=== PATIENT | female | born 1995 | race Hispanic/Latino ===

== ENCOUNTER 2020-06-16 08:27 | Emergency (ER) | payer OTHER ==
--- OUTSIDE RECORDS SUMMARY | 2020-06-16 08:30 | XMS REPORT | Continuity of Care Document ---
:1995 Author Organization [facility] t Address [address] [place] [address] Care Team Providers Name Role Phone Gracia Mosquera MD Attending Clinician Payers Payer Name Policy Type Policy Number Effective Date Expiration Date S ource Problems This patient has no known problems. Allergies, Adverse Reactions, Alerts Allergy Allergy Status Severity Reaction(s) Onset Inactive Treating Comm ents Source Name Type Date Date Clinician No Known DA Active U 2019-0 [facility] [place] No Known DA Active U 2017-0 [facility] [place] Medications This patient has no known medications. Procedures This patient has no known procedures. Encounters Start End Encounter Admission Attending Care Care Encounter Source Date/Time Date/Time Type Type Clinicians Facility Department ID 2020-06-04 2020-06-04 [id number] 00:00:00 00:00:00 Gloria Whitaker [id number] [place] [id number] Professio [phone] [address] 2020-05-12 2020-05-12 [facility] [id number] 00:00:00 00:00:00 Gloria Whitaker [id number] [place] [id number] Professio [phone] [address] 2020-04-24 2020-04-24 [facility] [id number] 08:10:06 08:30:06 ne Visit Gloria Whitaker [id number] [place] [id number] Professio [phone] [address] Results Test Description Test Time Test Comments Results Result Comments Source AG HEPATITIS B SURFACE 2019-06-06 08:48:00 Test Item Value Reference Range Interpretation Comme nts AG HEPATITIS B SURFACE (test code = HBSAG) NONREACTIVE NONREACTIVE IS CONSENT FORM SIGNED FOR HIV TESTING? YAB HEPATITIS C [id number] 08:48:00 Test Item Value Reference Range Interpretation Comments AB HEPATITIS C (test code = NONREACTIVE NONREACTIVE HCVAB) SIGNAL TO CUTOFF (test code = <0.02 <0.80 N CUTOFF) IS CONSENT FORM SIGNED FOR HIV TESTING? YAB [id number] 08:48:00 Test Item Value Reference Range Interpretation Comments AB TREPONEMA (test code = TREPAB) NONREACTIVE NONREACTIVE IS CONSENT FORM SIGNED FOR HIV TESTING? YAB HIV 1 08:48:00 Test Item Value Reference Range Interpretation Comments AB HIV 1 2 (test NONREACTIVE NONREACTIVE [facility] code = [id number]) 4th Gen HIV Ag/Ab Combo Screen IS CONSENT FORM SIGNED FOR HIV TESTING? YAG HEPATITIS B [id number] 08:17:00 Test Item Value Reference Range Interpretation Comments AG HEPATITIS B SURFACE (test code NONREACTIVE NONREACTIVE = HBSAG) IS CONSENT FORM SIGNED FOR HIV TESTING? YAB HEPATITIS C [id number] 08:17:00 Test Item Value Reference Range Interpretation Comments AB HEPATITIS C (test code = HCVAB) NONREACTIVE SIGNAL TO CUTOFF (test code = CUTOFF) <0.80 IS CONSENT FORM SIGNED FOR HIV TESTING? CECILB [id number] 08:17:00 Test Item Value Reference Range Interpretation Comments AB TREPONEMA (test code = TREPAB) NONREACTIVE NONREACTIVE IS CONSENT FORM SIGNED FOR HIV TESTING? CECILB HIV 1 08:17:00 Test Item Value Reference Range Interpretation Comments AB HIV 1 2 (test code = [id number]) NONREACTIVE IS CONSENT FORM SIGNED FOR HIV TESTING? YCBC W/AUTO [id number] 07:27:00 Test Item Value Reference Range Interpretation Comments WHITE BLOOD CELL (test code = WBC) 15.0 K/mm3 6.6-12.1 H RED BLOOD CELL (test code = RBC) 4.16 M/mm3 3.45-5.01 N HEMOGLOBIN (test code = HGB) 12.0 g/dL 10.7-13.9 N HEMATOCRIT (test code = HCT) 35.5 % 32.1-42.1 N MEAN CELL VOLUME (test code = MCV) 85 fL 84.1-94.8 N MEAN CELL HGB (test code = MCH) 28.8 pg 27-35 N MEAN CELL HGB CONCETRATION (test 33.8 gm/dL 32.2-34.1 N code = MCHC) RED CELL DISTRIBUTION WIDTH (test 13.5 % 12.4-16.5 N code = RDW) PLATELET COUNT (test code = PLT) 259 K/mm3 133-385 N MEAN PLATELET VOLUME (test code = 10.5 fl 9.1-12.7 N MPV) NEUTROPHIL % (test code = NT%) 77.0 % 56.5-79.4 N LYMPHOCYTE % (test code = LY%) 17.8 % 14.3-34.3 N MONOCYTE % (test code = MO%) 4.1 % 5.1-10.4 L EOSINOPHIL % (test code = EO%) 0.1 % 0.1-3.0 N BASOPHIL % (test code = BA%) 0.3 % 0.1-1.0 N NEUTROPHIL # (test code = NT#) 11.6 K/mm3 LYMPHOCYTE # (test code = LY#) 2.7 K/mm3 MONOCYTE # (test code = MO#) 0.6 K/mm3 EOSINOPHIL # (test code = EO#) 0.02 K/mm3 BASOPHIL # (test code = BA#) 0.0 K/mm3 RBC MORPHOLOGY REQUIRED (test code NORMAL NORMAL = RBCM) PLATELET MORPHOLOGY REQUIRED (test NORMAL NORMAL code = PLTMR) - US FET BIO PH OK W/O [id number] 13:30:00 Patient Name: CAMRELINA BRASHER Unit No: [id number] EXAMS: CPT CODE: [id number] US FET BIO PH OK W/O NST 25359 [facility] [address] [place], [place] [address] BIOPHYSICAL PROFILE ULTRASOUND REPORT Pat. Name: CARMELINA BRASHER Pat. No: [id number] Study Date: 06/05/2019 12:33pm , Age: 06 1995, 23 LMP: Unknown GA Selected: 38w6d (From Known E) JOSE: 06/13/2019 Referring MD: TITA SAMUEL Grip Assembler: Kathleen Maravilla RDMS CPT4: [id number] Admitting MD: TITA SAMUEL Hist/Ind: 1ST SCAN LOF CTX PRESSURE Heart Rate: 147 bpm Amniotic Fluid Index: 17.5cm (07.2-22.8) Q1: 2.7cm Q2: 4.8cm Q3: 3.0cm Q4: 6.9cm Biophysical Profile: 11/16 Breathin Tone: 2 Movement:2 AFV: 2 CLINICAL SUMMARY Type of Gestation: [place] Intrauterine in vertex presentation. motion and organs seen: heart motion seen body and limb movements observed tone noted breathing movements observed Placental location: Posterior Elena cental maturity : Grade 2 There is no evidence of placenta previa. Amniotic fluid volume is normal. Uterus and adnexa: No significant abnormality is seen. Thank you for allowing us toparticipate in the care of this patient. Nishant Perez M.D. Electronic Si gnature 06/05/2019 01:30pm at 1330 Reported and signed by: Nishant Perez MD [facility] NAME: CARMELINA BRASHER Radiology Department PHYS: Tita Vargas MD [address] : 1995 AGE: 23 SEX: F [place] [address] LOC: CristinaBRIONNA PHONE #: [phone] EXAM DATE: 06/05/2019 STATUS: REG ER FAX #: [phone] RAD NO: Page 1 Signed Report (CONTINUED) Patient Name: CARMELINA BRASHER Unit No: [id number] EXAMS: CPT CODE : [id number] FET BIO PH OK W/O NST 68002 <Continued> CC: Tita Samuel MD Technologist: Kathleen Maravilla RDMS Probe: Trnscrbd D/ (1330) Maisha Jean D/T: S: 06/05/2019 (1330) [facility] NAME: CARMELINA BRASHER Radiology Department PHYS: Tita Vargas MD [address] : 1995 AGE: 23 SEX: F [place] [address] LOC: CristinaBRIONNA PHONE #: [phone] EXAM DATE: 06/05/2019 STATUS: REG ER FAX #: [phone] RAD NO: Page 2 Signed Report Patient Name: CARMELINA BRASHER Unit No: [id number] EXAMS: CPT CODE: [id number] US FET BIO PH OK W/O NST 08045 <Continued> [facility] NAME: CARMELINA BRASHER Radiology Department PHYS: Tita Vargas MD [address] : 1995 AGE: 23 SEX: F [place], [place] [address] LOC: CristinaBRIONNA PHONE #: [phone] EXAM DATE: 06/05/2019 STATUS: REG ER FAX #: [phone] RAD NO: Page 3 Signed Report
--- NOTE | 2020-06-16 11:58 | ER ---
Nurse's Notes [facility] Name: Christen Clarke Age: 24 yrs Sex: Female : 1995 Arrival Date: 06/16/2020 Time: 08:33 Bed 5 Private MD: Diagnosis: Presentation: 06/16 09:07 Chief complaint: Dizziness and SOB, whose when attempting to eat or drink anything hb since last following her endoscopy. Advised by Dr. Haro to come to ED. Coronavirus screen: At this time, the client does not indicate any symptoms associated with coronavirus-19. Ebola Screen: No symptoms or risks identified at this time. Initial Sepsis Screen: Does the patient meet any 2 criteria? No. Patient's initial sepsis screen is negative. Does the patient have a suspected source of infection? No. Patient's initial sepsis screen is negative. Risk Assessment: Do you want to hurt yourself or someone else? Patient reports no desire to harm self or others. Onset of symptoms was June 13, 2020. 09:07 Method Of Arrival: Ambulatory hb 09:07 Acuity: RODRÍGUEZ 3 hb Historical: - Allergies: 09:09 No Known Allergies; hb - PMHx: 09:09 Anxiety; hb - Immunization history:: Adult Immunizations up to date. - Social history:: Smoking status: Patient denies any tobacco usage or history of. Vital Signs: 09:07 BP 109 / 73; Pulse 63; Resp 98; Temp 98; Pulse Ox 99% on R/A; Pain 0/10; hb ED Course: 08:33 Patient arrived in ED. mr 09:08 Triage completed. hb 09:09 Arm band placed on. hb Administered Medications: No medications were administered Outcome: 11:58 Patient left the ED. ll1 Signatures: Gladis Kumar Heather, RN RN Dion Olguin RN RN ll1
[2020-06-16 12:10] VITALS: BP 109/73; TEMP 98; O2SAT 99
== END 2020-06-16 11:58 | disposition left against medical advice (07) ==
LOC: ER 08:27
DX: Z53.21 Procedure and treatment not carried out due to patient leaving prior to being seen by health care provider (principal)
CPT/HCPCS: 99281

== ENCOUNTER 2022-05-05 16:18 | Emergency (ER) | payer OTHER ==
--- OUTSIDE RECORDS SUMMARY | 2022-05-05 16:23 | XMS REPORT | Continuity of Care Document ---
:1995 Author Organization [facility] t Address [address] [place] [address] Care Team Providers Name Role Phone GLORIA MOSQUERA Primary Care Physician Unavailable Tita Samuel Attending Clinician Unavailable GLORIA MOSQUERA Attending Clinician Unavailable MAI ARMAS Attending Clinician Unavailable MAI ARMAS Attending Clinician Unavailable 2, [facility] Attending Clinician Unavailable PABLO OSMAN Attending Clinician Unavailable Pablo Osman MD Attending Clinician Jacqui Brar Attending Clinician Unknown, Attending Attending Clinician Unavailable JACQUI AVILA Attending Clinician Unavailable Gloria Mosquera MD Attending Clinician [phone] Jamshid Godoy MD Attending Clinician JAMSHID GODOY Attending Clinician Unavailable Doctor Unassigned, [place] Attending Clinician Unavailable Brianna Leos MD Attending Clinician BRIANNA LEOS Attending Clinician Unavailable Ezio Feng MD Attending Clinician Pob, [facility] Lab Main Attending Clinician Unavailable MOSES MIRELES Attending Clinician Unavailable MOSES MIRELES Attending Clinician Unavailable 1, [facility] Sleep Lab Bed Attending Clinician Unavailable Moses Mireles MD Attending Clinician Only, Adc Test Attending Clinician Unavailable Triston Hurtado MD Attending Clinician Only, Ang Db Test Attending Clinician Unavailable UNKNOWN, ATTENDING Attending Clinician Unavailable EZIO FENG Attending Clinician Unavailable EZIO FENG Attending Clinician Unavailable BETHANY ROWAN Attending Clinician Unavailable FREDDIE GRANT Attending Clinician Unavailable BROOKLYNN EDEN Attending Clinician Unavailable MARIELLA KIDD Attending Clinician Unavailable Tita Samuel Admitting Clinician Unavailable PABLO OSMAN Admitting Clinician Unavailable BRIANNA LEOS Admitting Clinician Unavailable BETHANY ROWAN Admitting Clinician Unavailable BROOKLYNN EDEN Admitting Clinician Unavailable Payers Payer Name Policy Type Policy Number Effective Date Expiration Date [facility] [id number] 2016 [facility] STAR 00:00:00 [facility] [id number] 2014 00:00:00 Problems Condition Condition Condition Status Onset Resolution Last Treating Co mments Source Name Details Category Date Date Treatment Clinician Date COVID-19 COVID-19 Disease Active Unive rs 7- ity of 00:00: [place] [facility] Confusion Confusion Disease Active 2020-04 Uni vers state state 05-12 ity of 00:: [place] [facility] Dysphagia, Dysphagia, Disease Active 2020-04 U nivers unspecifie unspecifie 05-12 it y of d type d type 00:: [place] [facility] 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 05-12 it y of 00:00: [place] [facility] Pressure Pressure Disease Active Unive rs in head in head 916 ity of 00:00: [place] [facility] Altered Altered Disease Active Univers level of level of 9-16 ity of consciousn consciousn 00:[place] [facility] SOB SOB Disease Active Univers (shortness (shortness 5-28 it y of of breath) of breath) 00:00: [place] 00 [facility] Irregular Irregular Disease Active Uni vers menstrual menstrual 7-05 ity of cycle cycle 00:00: [place] 00 [facility] Anxiety Anxiety Disease Active Univers 7-16 ity of 00:00: [place] [facility] Obesity Obesity Disease Active Overview: Univ ers 11-07 Formattin ity of 00:00: g of this [place] 00 note Medical might be Branch different from the original. 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 Allergies, Adverse Reactions, Alerts Allergy Allergy Status Severity Reaction(s) Onset Inactive Treating Comm ents Source Name Type Date Date Clinician Epinephr Propensi Active Anxiety Unive rs ine ty to 6 ity of adverse 00:00: [place] reaction 00 Medical s Branch EPINEPHR DRUG Active Anxiety Univers INE INGREDI 6 ity of 00:00: [place] 00 Medical Branch No Known DA Active U 0 [facility] [place] No Known DA Active U 2019-0 [facility]ie [facility]- [facility] [place] No Known DA Active U 2017-0 [facility] Allergie 3 [facility] 00:[facility] [place] No Known DA Active U 2017-0 [facility] Allergie [facility]- [facility] [place] Social History Social Habit Start Date Stop Date Quantity Comments Source Alcohol intake 2022-03-09 2022-03-09 Current drinker Unive rsity of 00:00:00 00:00:00 of alcohol [place] [facility] (finding) [facility] Exposure to 2022-02-14 2022-02-24 Not sure University of SARS-CoV-2 00:00:00 16:07:00 [place] [facility] (event) [facility] Tobacco use and 2012-11-07 2012-11-07 Smokeless tobacco Un iversity of exposure 00:00:00 00:00:00 non-user [facility] Sex Assigned At [birth year] Universit y of 00:00:00 00:00:00 [facility] Smoking Status Start Date Stop Date Source Never smoked tobacco [facility] Medications Ordered Filled Start Stop Current Ordering Indication Dosage Frequency Signature Comments Components Source Medication Medication Date Date Medication? Clinician (SIG) Name Name Etonogestre 2021-04 No 68mg 68 mg by U nivers l 2-15 12-15 Subdermal ity of (NEXPLANON) 12:07: 00:00 route once [place] 68 mg 40 :00 now. Medical implant Branch Etonogestre 2021-04- No 68mg 68 mg by U nivers l 2-15 12-15 Subdermal ity of (NEXPLANON) 12:07: 00:00 route once [place] 68 mg 40 :00 now. Medical implant Branch cyanocobala 2021-04- Yes [id number] 2000ug Univers min (DODEX) 05-09 ity of injection 17:00: 04:59 [place] 2,000 mcg 00 :00 Medical Branch cyanocobala 2021-04- No [id number] 2000ug Univers min (DODEX) 05-09 ity of injection 17:00: 16:44 [place] 2,000 mcg 00 :00 Medical Branch cyanocobala 2021-04- No [id number] 2000ug 2,000 mcg, Univers min (DODEX) 05-09 Intramuscu i ty of injection 17:00: 16:44 lar, ONCE, [place] 2,000 mcg 00 :00 1 dose, On [facility] 03/09/22 at 1100, Routine cyanocobala 2021-04- No [id number] 2000ug Univers min (DODEX) 05-09 ity of injection 17:00: 16:44 [place] 2,000 mcg 00 :00 Medical Branch cyanocobala 2021-04- No [id number] 2000ug Univers min (DODEX) 05-09 ity of injection 17:00: 16:44 [place] 2,000 mcg 00 :00 Medical Branch cyanocobala 2021-04- No [id number] 2000ug 2,000 mcg, Univers min (DODEX) 05-09 Intramuscu i ty of injection 17:00: 16:44 lar, ONCE, [place] 2,000 mcg 00 :00 1 dose, On Medi lakhwinder Tu Branch 03/09/22 at 1100, Routine acetaminoph 2021-04- No 1000mg 1,000 mg, Univers en 1-15 15 Oral, ity of (TYLENOL) 18:45: 18:34 ONCE, 1 [place] tablet 00 :[place] dose, On Medical 1,000 mg [facility] 02/23/22 at 1245, FILI ibuprofen 2021-04 Yes [id number] 600mg Take 1 Univers 600 mg 1-15 tablet by ity of tablet 00:00: mouth [place] 00 every 6 Medical (six) Branch hours as needed for Pain (scale 4-6) or Alternate with [place] for pain scale 1-3. ondansetron 2021-04 Yes [id number] 4mg Take 1 Univers 4 mg 1-15 tablet by ity of disintegrat 00:00: mouth [place] ing tablet 00 every 12 Medic al (twelve) Branch hours as needed for Nausea and Vomiting (N/V). ibuprofen 2021-04 Yes [id number] 600mg Take 1 Univers 600 mg 1-15 tablet by ity of tablet 00:00: mouth [place] 00 every 6 Medical (six) Branch hours as needed for Pain (scale 4-6) or Alternate with [place] for pain scale 1-3. ondansetron 2021-04 Yes [id number] 4mg Take 1 Univers 4 mg 1-15 tablet by ity of disintegrat 00:00: mouth [place] ing tablet 00 every 12 Medic al (twelve) Branch hours as needed for Nausea and Vomiting (N/V). ibuprofen 2021-04 Yes [id number] 600mg Take 1 Univers 600 mg 1-15 tablet by ity of tablet 00:00: mouth [place] 00 every 6 Medical (six) Branch hours as needed for Pain (scale 4-6) or Alternate with [place] for pain scale 1-3. ondansetron 2021-04 Yes [id number] 4mg Take 1 Univers 4 mg 1-15 tablet by ity of disintegrat 00:00: mouth [place] ing tablet 00 every 12 Medic al (twelve) Branch hours as needed for Nausea and Vomiting (N/V). ibuprofen 2021-04 Yes [id number] 600mg Take 1 Univers 600 mg 1-15 tablet by ity of tablet 00:00: mouth [place] 00 every 6 Medical (six) Branch hours as needed for Pain (scale 4-6) or Alternate with [place] for pain scale 1-3. ondansetron 2021-04 Yes [id number] 4mg Take 1 Univers 4 mg 1-15 tablet by ity of disintegrat 00:00: mouth [place] ing tablet 00 every 12 Medic al (twelve) Branch hours as needed for Nausea and Vomiting (N/V). ibuprofen 2021-04 Yes [id number] 600mg Take 1 Univers 600 mg 1-15 tablet by ity of tablet 00:00: mouth [place] 00 every 6 Medical (six) Branch hours as needed for Pain (scale 4-6) or Alternate with [place] for pain scale 1-3. ondansetron 2021-04 Yes [id number] 4mg Take 1 Univers 4 mg 1-15 tablet by ity of disintegrat 00:00: mouth [place] ing tablet 00 every 12 Medic al (twelve) Branch hours as needed for Nausea and Vomiting (N/V). ibuprofen 2021-04 Yes [id number] 600mg Take 1 Univers 600 mg 1-15 tablet by ity of tablet 00:00: mouth [place] 00 every 6 Medical (six) Branch hours as needed for Pain (scale 4-6) or Alternate with [place] for pain scale 1-3. ondansetron 2021-04 Yes [id number] 4mg Take 1 Univers 4 mg 1-15 tablet by ity of disintegrat 00:00: mouth [place] ing tablet 00 every 12 Medic al (twelve) Branch hours as needed for Nausea and Vomiting (N/V). ibuprofen 2021-04 Yes [id number] 600mg Take 1 Univers 600 mg 1-15 tablet by ity of tablet 00:00: mouth [place] 00 every 6 Medical (six) Branch hours as needed for Pain (scale 4-6) or Alternate with [place] for pain scale 1-3. ondansetron 2021-04 Yes [id number] 4mg Take 1 Univers 4 mg 1-15 tablet by ity of disintegrat 00:00: mouth [place] ing tablet 00 every 12 Medic al (twelve) Branch hours as needed for Nausea and Vomiting (N/V). ibuprofen 2021-04 Yes [id number] 600mg Take 1 Univers 600 mg 1-15 tablet by ity of tablet 00:00: mouth [place] 00 every 6 Medical (six) Branch hours as needed for Pain (scale 4-6) or Alternate with [place] for pain scale 1-3. ondansetron 2021-04 Yes [id number] 4mg Take 1 Univers 4 mg 1-15 tablet by ity of disintegrat 00:00: mouth [place] ing tablet 00 every 12 Medic al (twelve) Branch hours as needed for Nausea and Vomiting (N/V). ibuprofen 2021-04 Yes [id number] 600mg Take 1 Univers 600 mg 1-15 tablet by ity of tablet 00:00: mouth [place] 00 every 6 Medical (six) Branch hours as needed for Pain (scale 4-6) or Alternate with [place] for pain scale 1-3. ondansetron 2021-04 Yes [id number] 4mg Take 1 Univers 4 mg 1-15 tablet by ity of disintegrat 00:00: mouth [place] ing tablet 00 every 12 Medic al (twelve) Branch hours as needed for Nausea and Vomiting (N/V). ibuprofen 2021-04 Yes [id number] 600mg Take 1 Univers 600 mg 1-15 tablet by ity of tablet 00:00: mouth [place] 00 every 6 Medical (six) Branch hours as needed for Pain (scale 4-6) or Alternate with [place] for pain scale 1-3. ondansetron 2021-04 Yes [id number] 4mg Take 1 Univers 4 mg 1-15 tablet by ity of disintegrat 00:00: mouth [place] ing tablet 00 every 12 Medic al (twelve) Branch hours as needed for Nausea and Vomiting (N/V). HYDROcodone 2021-04- Yes [id number] 1{tbl} Take 1 U nivers -acetaminop 1-15 11-23 tablet by it y of hen 5-325 00:00: 05:59 mouth [place] mg tablet 00 :00 every 6 Medical (six) Branch hours as needed for Pain (scale 7-10) for up to 7 days. Indication s: acute pain HYDROcodone 2021-04- Yes [id number] 1{tbl} Take 1 U nivers -acetaminop 1-15 11-23 tablet by it y of hen 5-325 00:00: 05:59 mouth [place] mg tablet 00 :00 every 6 Medical (six) Branch hours as needed for Pain (scale 7-10) for up to 7 days. Indication s: acute pain HYDROcodone 2021-04- Yes [id number] 1{tbl} Take 1 U nivers -acetaminop -15 03-03 tablet by it y of hen 5-325 00:00: 05:59 mouth [place] mg tablet 00 :00 every 6 Medical (six) Branch hours as needed for Pain (scale 7-10) for up to 7 days. Indication s: acute pain bromphenira 2021-04- Yes [id number] 10mL Take 10 mL Univers mine-pseudo 04-18 by mouth 4 i ty of ephedrine-D 00:00: 05:59 (four) [place] as M (BROMFED 00 :00 times Medical DM) 2-30-10 daily as Bran ch mg/5 mL needed for syrup Congestion /Allergies or Cough for up to 12 days. bromphenira 2021-04- Yes [id number] 10mL Take 10 mL Univers mine-pseudo 04-18 by mouth 4 i ty of ephedrine-D 00:00: 05:59 (four) [place] as M (BROMFED 00 :00 times Medical DM) 2-30-10 daily as Bran ch mg/5 mL needed for syrup Congestion /Allergies or Cough for up to 12 days. bromphenira 2021-04- Yes [id number] 10mL Take 10 mL Univers mine-pseudo 04-18 by mouth 4 i ty of ephedrine-D 00:00: 05:59 (four) [place] as M (BROMFED 00 :00 times Medical DM) 2-30-10 daily as Bran ch mg/5 mL needed for syrup Congestion /Allergies or Cough for up to 12 days. bromphenira 2021-04- Yes [id number] 10mL Take 10 mL Univers mine-pseudo 04-18 by mouth 4 i ty of ephedrine-D 00:00: 05:59 (four) [place] as M (BROMFED 00 :00 times Medical DM) 2-30-10 daily as Bran ch mg/5 mL needed for syrup Congestion /Allergies or Cough for up to 12 days. azithromyci 2021-04- Yes [id number] 250mg Z-Amado = Univers n 04-18 11-14 500 mg day ity of (ZITHROMAX 00:00: 05:59 1, then [place] as Z-AMADO) 250 00 :00 250 mg Medical mg tablet days 2 to Branc h 5. lidocaine 2021-0 Yes [id number] 15mL Take 15 mL Univers 2% viscous 7-01 by mouth ity o f 2 % 00:00: every 4 [place] solution 00 (four) Medical hours as Branch needed for Oral mucosal pain. lidocaine 2021-0 Yes [id number] 15mL Take 15 mL Univers 2% viscous 7-01 by mouth ity o f 2 % 00:00: every 4 [place] solution 00 (four) Medical hours as Branch needed for Oral mucosal pain. lidocaine 2021-0 Yes [id number] 15mL Take 15 mL Univers 2% viscous 7-01 by mouth ity o f 2 % 00:00: every 4 [place] solution 00 (four) Medical hours as Branch needed for Oral mucosal pain. lidocaine 2021-0 Yes [id number] 15mL Take 15 mL Univers 2% viscous 7-01 by mouth ity o f 2 % 00:00: every 4 [place] solution 00 (four) Medical hours as Branch needed for Oral mucosal pain. lidocaine 2021-0 Yes [id number] 15mL Take 15 mL Univers 2% viscous 7-01 by mouth ity o f 2 % 00:00: every 4 [place] solution 00 (four) Medical hours as Branch needed for Oral mucosal pain. lidocaine 2021-0 Yes [id number] 15mL Take 15 mL Univers 2% viscous 7-01 by mouth ity o f 2 % 00:00: every 4 [place] solution 00 (four) Medical hours as Branch needed for Oral mucosal pain. lidocaine 2021-0 Yes [id number] 15mL Take 15 mL Univers 2% viscous 7-01 by mouth ity o f 2 % 00:00: every 4 [place] solution 00 (four) Medical hours as Branch needed for Oral mucosal pain. lidocaine 2021-0 Yes [id number] 15mL Take 15 mL Univers 2% viscous 7-01 by mouth ity o f 2 % 00:00: every 4 [place] solution 00 (four) Medical hours as Branch needed for Oral mucosal pain. lidocaine 2021-0 Yes [id number] 15mL Take 15 mL Univers 2% viscous 7-01 by mouth ity o f 2 % 00:00: every 4 [place] solution 00 (four) Medical hours as Branch needed for Oral mucosal pain. lidocaine 2021-0 Yes [id number] 15mL Take 15 mL Univers 2% viscous 7-01 by mouth ity o f 2 % 00:00: every 4 [place] solution 00 (four) Medical hours as Branch needed for Oral mucosal pain. lidocaine 2021-0 Yes [id number] 15mL Take 15 mL Univers 2% viscous 7-01 by mouth ity o f 2 % 00:00: every 4 [place] solution 00 (four) Medical hours as Branch needed for Oral mucosal pain. lidocaine 2- No [id number] 15mL Take 15 mL Univers 2% viscous 7- 12-15 by mouth ity of 2 % 00:00: 00:00 every 4 [place] solution 00 :00 (four) Medical hours as Branch needed for Oral mucosal pain. lidocaine 2021-2021- No [id number] 15mL Take 15 mL Univers 2% viscous 7- 12-15 by mouth ity of 2 % 00:00: 00:00 every 4 [place] solution 00 :00 (four) Medical hours as Branch needed for Oral mucosal pain. amoxicillin 2021- No [id number] 400mg Take 5 mL Univers -clavulanat 10-09 by mouth 2 i ty of e 400-57 00:00: 04:59 (two) [place] mg/5 mL 00 :00 times Medical suspension daily for Bran ch 10 days. hydrOXYchlo 2021- No [id number] 200mg Take 1 Univers roQUINE 200 10-09 tablet by it y of mg tablet 00:00: 04:59 [place] 00 :00 (two) Medical times Branch daily for 5 days. Etonogestre Yes 68mg 68 mg by Un efren l 6-29 Subdermal ity of (NEXPLANON) 09:20: route once [place] 68 mg 51 now. Medical implant Branch Etonogestre 0 Yes 68mg 68 mg by Un efren l 6-29 Subdermal ity of (NEXPLANON) 09:20: route once [place] 68 mg 51 now. Medical implant Branch Etonogestre 0 Yes 68mg 68 mg by Un efren l 6-29 Subdermal ity of (NEXPLANON) 09:20: route once [place] 68 mg 51 now. Medical implant Branch Etonogestre Yes 68mg 68 mg by Un efren l 6-29 Subdermal ity of (NEXPLANON) 09:20: route once [place] 68 mg 51 now. Medical implant Branch Etonogestre 2-0 Yes 68mg 68 mg by Un efren l 6-29 Subdermal ity of (NEXPLANON) 09:20: route once [place] 68 mg 51 now. Medical implant Branch Etonogestre 2-0 Yes 68mg 68 mg by Un efren l 6-29 Subdermal ity of (NEXPLANON) 09:20: route once [place] 68 mg 51 now. Medical implant Branch Etonogestre 2-0 Yes 68mg 68 mg by Un efren l 6-29 Subdermal ity of (NEXPLANON) 09:20: route once [place] 68 mg 51 now. Medical implant Branch Etonogestre 2-0 Yes 68mg 68 mg by Un efren l 6-29 Subdermal ity of (NEXPLANON) 09:20: route once [place] 68 mg 51 now. Medical implant Branch Etonogestre 2-0 Yes 68mg 68 mg by Un efren l 6-29 Subdermal ity of (NEXPLANON) 09:20: route once [place] 68 mg 51 now. Medical implant Branch Etonogestre 2-0 Yes 68mg 68 mg by Un efren l 6-29 Subdermal ity of (NEXPLANON) 09:20: route once [place] 68 mg 51 now. Medical implant Branch Etonogestre 2-0 Yes 68mg 68 mg by Un efren l 6-29 Subdermal ity of (NEXPLANON) 09:20: route once [place] 68 mg 51 now. Medical implant Branch bromphenira 2021-0 Yes [id number] 5mL Take 5 mL Univers mine-pseudo 6-29 by mouth 3 it y of ephedrine-D 00:00: (three) [place] as M (BROMFED 00 times Medical DM) 2-30-10 daily as Bran ch mg/5 mL needed for syrup Congestion /Allergies or Cough. bromphenira 2-0 Yes [id number] 5mL Take 5 mL Univers mine-pseudo 6-29 by mouth 3 it y of ephedrine-D 00:00: (three) [place] as M (BROMFED 00 times Medical DM) 2-30-10 daily as Bran ch mg/5 mL needed for syrup Congestion /Allergies or Cough. bromphenira 2-0 Yes [id number] 5mL Take 5 mL Univers mine-pseudo 6-29 by mouth 3 it y of ephedrine-D 00:00: (three) [place] as M (BROMFED 00 times Medical DM) 2-30-10 daily as Bran ch mg/5 mL needed for syrup Congestion /Allergies or Cough. bromphenira 2022-0 Yes [id number] 5mL Take 5 mL Univers mine-pseudo 6-29 by mouth 3 it y of ephedrine-D 00:00: (three) [place] as M (BROMFED 00 times Medical DM) 2-30-10 daily as Bran ch mg/5 mL needed for syrup Congestion /Allergies or Cough. bromphenira 2-0 Yes [id number] 5mL Take 5 mL Univers mine-pseudo 6-29 by mouth 3 it y of ephedrine-D 00:00: (three) [place] as M (BROMFED 00 times Medical DM) 2-30-10 daily as Bran ch mg/5 mL needed for syrup Congestion /Allergies or Cough. bromphenira 2-0 Yes [id number] 5mL Take 5 mL Univers mine-pseudo 6-29 by mouth 3 it y of ephedrine-D 00:00: (three) [place] as M (BROMFED 00 times Medical DM) 2-30-10 daily as Bran ch mg/5 mL needed for syrup Congestion /Allergies or Cough. bromphenira 2-0 Yes [id number] 5mL Take 5 mL Univers mine-pseudo 6-29 by mouth 3 it y of ephedrine-D 00:00: (three) [place] as M (BROMFED 00 times Medical DM) 2-30-10 daily as Bran ch mg/5 mL needed for syrup Congestion /Allergies or Cough. bromphenira 2-0 Yes [id number] 5mL Take 5 mL Univers mine-pseudo 6-29 by mouth 3 it y of ephedrine-D 00:00: (three) [place] as M (BROMFED 00 times Medical DM) 2-30-10 daily as Bran ch mg/5 mL needed for syrup Congestion /Allergies or Cough. bromphenira 2022-0 Yes [id number] 5mL Take 5 mL Univers mine-pseudo 6-29 by mouth 3 it y of ephedrine-D 00:00: (three) [place] as M (BROMFED 00 times Medical DM) 2-30-10 daily as Bran ch mg/5 mL needed for syrup Congestion /Allergies or Cough. bromphenira 2021-0 Yes [id number] 5mL Take 5 mL Univers mine-pseudo 6-29 by mouth 3 it y of ephedrine-D 00:00: (three) [place] as M (BROMFED 00 times Medical DM) 2-30-10 daily as Bran ch mg/5 mL needed for syrup Congestion /Allergies or Cough. bromphenira 2021-0 Yes [id number] 5mL Take 5 mL Univers mine-pseudo 6-29 by mouth 3 it y of ephedrine-D 00:00: (three) [place] as M (BROMFED 00 times Medical DM) 2-30-10 daily as Bran ch mg/5 mL needed for syrup Congestion /Allergies or Cough. bromphenira 2021-2021- No [id number] 5mL Take 5 mL Univers mine-pseudo 6-29 12-15 by mouth 3 i ty of ephedrine-D 00:00: 00:00 (three) [place] M (BROMFED 00 :00 times Medical DM) 2-30-10 daily as Bran ch mg/5 mL needed for syrup Congestion /Allergies or Cough. bromphenira 2021-0 2- No [id number] 5mL Take 5 mL Univers mine-pseudo 6-29 12-15 by mouth 3 i ty of ephedrine-D 00:00: 00:00 (three) [place] M (BROMFED 00 :00 times Medical DM) 2-30-10 daily as Bran ch mg/5 mL needed for syrup Congestion /Allergies or Cough. amoxicillin 2022- No [id number] 1{tbl} Take 1 Univers -clavulanat - 07- tablet by it y of e 00:00: 00:00 mouth 2 [place] (AUGMENTIN) 00 :00 (two) Medical 875-125 mg times Branch per tablet daily. omeprazole 0 Yes [id number] Take one Univers 40 mg 1-15 tablet 30 ity of capsule 00:00: mins [place] 00 before Medical breakfast Branch and again 30 minutes before dinner famotidine 2020-0 Yes [id number] 40mg Take 1 Univers 40 mg 1-15 tablet by ity of tablet 00:00: mouth at [place] 00 bedtime. Medical Branch fluticasone Yes [id number] 2{spray Use 2 Univers propionate 1-15 } Sprays in ity of 50 00:00: each [place] mcg/actuati 00 nostril 2 Med ical on nasal (two) Branch spray times daily. omeprazole Yes [id number] Take one Univers 40 mg 1-15 tablet 30 ity of capsule 00:00: mins [place] 00 before Medical breakfast Branch and again 30 minutes before dinner famotidine Yes [id number] 40mg Take 1 Univers 40 mg 1-15 tablet by ity of tablet 00:00: mouth at [place] 00 bedtime. Medical Branch fluticasone Yes [id number] 2{spray Use 2 Univers propionate 1-15 } Sprays in ity of 50 00:00: each [place] mcg/actuati 00 nostril 2 Med ical on nasal (two) Branch spray times daily. omeprazole Yes [id number] Take one Univers 40 mg 1-15 tablet 30 ity of capsule 00:00: mins [place] 00 before Medical breakfast Branch and again 30 minutes before dinner famotidine Yes [id number] 40mg Take 1 Univers 40 mg 1-15 tablet by ity of tablet 00:00: mouth at [place] 00 bedtime. Medical Branch fluticasone Yes [id number] 2{spray Use 2 Univers propionate 1-15 } Sprays in ity of 50 00:00: each [place] mcg/actuati 00 nostril 2 Med ical on nasal (two) Branch spray times daily. omeprazole Yes [id number] Take one Univers 40 mg 1-15 tablet 30 ity of capsule 00:00: mins [place] 00 before Medical breakfast Branch and again 30 minutes before dinner famotidine Yes [id number] 40mg Take 1 Univers 40 mg 1-15 tablet by ity of tablet 00:00: mouth at [place] 00 bedtime. Medical Branch fluticasone Yes [id number] 2{spray Use 2 Univers propionate 1-15 } Sprays in ity of 50 00:00: each [place] mcg/actuati 00 nostril 2 Med ical on nasal (two) Branch spray times daily. omeprazole Yes [id number] Take one Univers 40 mg 1-15 tablet 30 ity of capsule 00:00: mins [place] 00 before Medical breakfast Branch and again 30 minutes before dinner famotidine Yes [id number] 40mg Take 1 Univers 40 mg 1-15 tablet by ity of tablet 00:00: mouth at [place] 00 bedtime. Medical Branch fluticasone Yes [id number] 2{spray Use 2 Univers propionate 1-15 } Sprays in ity of 50 00:00: each [place] mcg/actuati 00 nostril 2 Med ical on nasal (two) Branch spray times daily. omeprazole Yes [id number] Take one Univers 40 mg 1-15 tablet 30 ity of capsule 00:00: mins [place] 00 before Medical breakfast Branch and again 30 minutes before dinner famotidine Yes [id number] 40mg Take 1 Univers 40 mg 1-15 tablet by ity of tablet 00:00: mouth at [place] [address] bedtime. Medical Branch fluticasone Yes [id number] 2{spray Use 2 Univers propionate 1-15 } Sprays in ity of 50 00:00: each [place] mcg/actuati 00 nostril 2 Med ical on nasal (two) Branch spray times daily. omeprazole Yes [id number] Take one Univers 40 mg 1-15 tablet 30 ity of capsule 00:00: mins [place] 00 before Medical breakfast Branch and again 30 minutes before dinner famotidine Yes [id number] 40mg Take 1 Univers 40 mg 1-15 tablet by ity of tablet 00:00: mouth at [place] 00 bedtime. Medical Branch fluticasone Yes [id number] 2{spray Use 2 Univers propionate 1-15 } Sprays in ity of 50 00:00: each [place] mcg/actuati 00 nostril 2 Med ical on nasal (two) Branch spray times daily. omeprazole Yes [id number] Take one Univers 40 mg 1-15 tablet 30 ity of capsule 00:00: mins [place] 00 before Medical breakfast Branch and again 30 minutes before dinner famotidine Yes [id number] 40mg Take 1 Univers 40 mg 1-15 tablet by ity of tablet 00:00: mouth at [place] 00 bedtime. Medical Branch fluticasone Yes [id number] 2{spray Use 2 Univers propionate 1-15 } Sprays in ity of 50 00:00: each [place] mcg/actuati 00 nostril 2 Med ical on nasal (two) Branch spray times daily. omeprazole 2020- Yes [id number] Take one Univers 40 mg 1-15 tablet 30 ity of capsule 00:00: mins [place] 00 before Medical breakfast Branch and again 30 minutes before dinner famotidine Yes [id number] 40mg Take 1 Univers 40 mg 1-15 tablet by ity of tablet 00:00: mouth at [place] 00 bedtime. Medical Branch fluticasone Yes [id number] 2{spray Use 2 Univers propionate 1-15 } Sprays in ity of 50 00:00: each [place] mcg/actuati 00 nostril 2 Med ical on nasal (two) Branch spray times daily. omeprazole Yes [id number] Take one Univers 40 mg 1-15 tablet 30 ity of capsule 00:00: mins [place] 00 before Medical breakfast Branch and again 30 minutes before dinner famotidine Yes [id number] 40mg Take 1 Univers 40 mg 1-15 tablet by ity of tablet 00:00: mouth at [place] 00 bedtime. Medical Branch fluticasone Yes [id number] 2{spray Use 2 Univers propionate 1-15 } Sprays in ity of 50 00:00: each [place] mcg/actuati 00 nostril 2 Med ical on nasal (two) Branch spray times daily. omeprazole Yes [id number] Take one Univers 40 mg 1-15 tablet 30 ity of capsule 00:00: mins [place] 00 before Medical breakfast Branch and again 30 minutes before dinner famotidine 0 Yes [id number] 40mg Take 1 Univers 40 mg 1-15 tablet by ity of tablet 00:00: mouth at [place] [address] bedtime. Medical Branch fluticasone Yes [id number] 2{spray Use 2 Univers propionate 1-15 } Sprays in ity of 50 00:00: each [place] mcg/actuati 00 nostril 2 Med ical on nasal (two) Branch spray times daily. omeprazole 2021- No [id number] Take one Univers 40 mg 1-15 12-15 tablet 30 ity of capsule 00:00: 00:00 mins [place] 00 :00 before Medical breakfast Branch and again 30 minutes before dinner famotidine 2021- No [id number] 40mg Take 1 Univers 40 mg 1-15 12-15 tablet by ity of tablet 00:00: 00:00 mouth at [place] 00 :00 bedtime. Medical Branch fluticasone 2021- No [id number] 2{spray Use 2 Univers propionate 1-15 12-15 [id number] } Sprays in it y of 50 00:00: 00:00 each [place] mcg/actuati 00 :00 nostril 2 Med ical on nasal (two) Branch spray times daily. omeprazole 2021- No [id number] Take one Univers 40 mg 1-15 12-15 tablet 30 ity of capsule 00:00: 00:00 mins [place] 00 :00 before Medical breakfast Branch and again 30 minutes before dinner famotidine 2021- No [id number] 40mg Take 1 Univers 40 mg 1-15 12-15 tablet by ity of tablet 00:00: 00:00 mouth at [place] 00 :00 bedtime. Medical Branch fluticasone 2021- No [id number] 2{spray Use 2 Univers propionate 1-15 12-15 [id number] } Sprays in it y of 50 00:00: 00:00 each [place] mcg/actuati 00 :00 nostril 2 Med ical on nasal (two) Branch spray times daily. Immunizations Ordered Filled Immunization Date Status Comments [facility] e Immunization Name Name Influenza Virus 2022-03-09 Completed Universit y of Vaccine Quad IM, 00:00:00 [place] Me dical Preserv and ABX Branch Free 6 MO-64 YRS Influenza Virus 2022-03-09 Completed Universit y of Vaccine Quad IM, 00:00:00 [place] Me dical Preserv and ABX Branch Free 6 MO-64 YRS Influenza Virus 2022-03-09 Completed Universit y of Vaccine Quad IM, 00:00:00 [place] Me dical Preserv and ABX Branch Free 6 MO-64 YRS Influenza Virus 2022-03-09 Completed Universit y of Vaccine Quad IM, 00:00:00 [place] Me dical Preserv and ABX Branch Free 6 MO-64 YRS Influenza Virus 2022-03-09 Completed Universit y of Vaccine Quad IM, 00:00:00 [place] Me dical Preserv and ABX Branch Free 6 MO-64 YRS Influenza Virus 2022-03-09 Completed Universit y of Vaccine Quad IM, 00:00:00 [place] Me dical Preserv and ABX Branch Free 6 MO-64 YRS Influenza Virus 2022-03-09 Completed Universit y of Vaccine Quad IM, 00:00:00 [place] Me dical Preserv and ABX Branch Free 6 MO-64 YRS MMR 2016-07-14 Completed University of 00:00:00 [facility] MMR 2016-07-14 Completed University of 00:00:00 [facility] MMR 2016-07-14 Completed University of 00:00:00 [facility] MMR 2016-07-14 Completed University of 00:00:00 [facility] MMR 2016-07-14 Completed University of 00:00:00 [facility] MMR 2016-07-14 Completed University of 00:00:00 [facility] MMR 2016-07-14 Completed University of 00:00:00 [facility] MMR 2016-07-14 Completed University of 00:00:00 [facility] MMR 2016-07-14 Completed University of 00:00:00 [facility] MMR 2016-07-14 Completed University of 00:00:00 [facility] MMR 2016-07-14 Completed University of 00:00:00 [facility] MMR 2016-07-14 Completed University of 00:00:00 [facility] MMR 2016-07-14 Completed University of 00:00:00 [facility] TDAP (ADACEL) 2012-11-09 Completed University of VACCINE 00:00:00 [facility] TDAP (ADACEL) 2012-11-09 Completed University of VACCINE 00:00:00 [facility] TDAP (ADACEL) 2012-11-09 Completed University of VACCINE 00:00:00 [facility] TDAP (ADACEL) 2012-11-09 Completed University of VACCINE 00:00:00 [facility] TDAP (ADACEL) 2012-11-09 Completed University of VACCINE 00:00:00 [facility] TDAP (ADACEL) 2012-11-09 Completed University of VACCINE 00:00:00 [place] [facility] TDAP (ADACEL) 2012-11-09 Completed University of VACCINE 00:00:00 [place] [facility] TDAP (ADACEL) 2012-11-09 Completed University of VACCINE 00:00:00 [place] [facility] TDAP (ADACEL) 2012-11-09 Completed University of VACCINE 00:00:00 [facility] Branch TDAP (ADACEL) 2012-11-09 Completed University of VACCINE 00:00:00 [place] [facility] TDAP (ADACEL) 2012-11-09 Completed University of VACCINE 00:00:00 [facility] Branch TDAP (ADACEL) 2012-11-09 Completed University of VACCINE 00:00:00 [facility] Branch TDAP (ADACEL) 2012-11-09 Completed University of VACCINE 00:00:00 [facility] HPV 2010-05-25 Completed University of 00:00:00 [facility] Branch HPV 2010-05-25 Completed University of 00:00:00 [facility] Branch HPV 2010-02-24 Completed University of 00:00:00 [facility] Branch HPV 2010-02-24 Completed University of 00:00:00 [facility] Branch Rubella 2009-11-18 Completed University of 00:00:00 [facility] Branch HPV 2009-11-18 Completed University of 00:00:00 [facility] Branch Rubella 2009-11-18 Completed University of 00:00:00 [facility] Branch Rubella 2009-11-18 Completed University of 00:00:00 [facility] Branch Rubella 2009-11-18 Completed University of 00:00:00 [facility] Branch Rubella 2009-11-18 Completed University of 00:00:00 [facility] Branch Rubella 2009-11-18 Completed University of 00:00:00 [facility] Branch Rubella 2009-11-18 Completed University of 00:00:00 [facility] Branch Rubella 2009-11-18 Completed University of 00:00:00 [facility] Branch HPV 2009-11-18 Completed University of 00:00:00 [facility] Branch Rubella 2009-11-18 Completed University of 00:00:00 [facility] Branch Rubella 2009-11-18 Completed University of 00:00:00 [facility] Branch Rubella 2009-11-18 Completed University of 00:00:00 [facility] Branch Rubella 2009-11-18 Completed University of 00:00:00 [facility] Branch Rubella 2009-11-18 Completed University of 00:00:00 [place] [facility] Td 2007-04-11 Completed University of 00:00:00 [place] [facility] Td 2007-04-11 Completed University of 00:00:00 [place] [facility] Td 2007-04-11 Completed University of 00:00:00 [place] [facility] Td 2007-04-11 Completed University of 00:00:00 [place] [facility] Td 2007-04-11 Completed University of 00:00:00 [place] [facility] Td 2007-04-11 Completed University of 00:00:00 [place] [facility] Td 2007-04-11 Completed University of 00:00:00 [place] [facility] Td 2007-04-11 Completed University of 00:00:00 [place] [facility] Td 2007-04-11 Completed University of 00:00:00 [place] [facility] Td 2007-04-11 Completed University of 00:00:00 [place] [facility] Td 2007-04-11 Completed University of 00:00:00 [facility] Branch Td 2007-04-11 Completed University of 00:00:00 [facility] Td 2007-04-11 Completed University of 00:00:00 [facility] Vital Signs Vital Name Observation Time Observation Value Comments Source Systolic blood 2022-03-09 15:24:00 114 mm[Hg] Univer sity of pressure [facility] Diastolic blood 2022-03-09 15:24:00 76 mm[Hg] Unive rsity of pressure [facility] Heart rate 2022-03-09 15:24:00 68 /min [facility] Respiratory rate 2022-03-09 15:24:00 18 /min [facility] weight 2022-03-09 15:24:00 83.915 kg [facility] BMI 2022-03-09 15:24:00 33.84 kg/m2 [facility] Oxygen saturation in 2022-03-09 15:24:00 99 /min [facility] Arterial blood by [facility] Pulse oximetry Branch Systolic blood 2022-02-23 16:16:00 122 mm[Hg] Univer sity of pressure [facility] Diastolic blood 2022-02-23 16:16:00 73 mm[Hg] Unive rsity of pressure [facility] Heart rate 2022-02-23 16:14:00 80 /min [facility] Body temperature 2022-02-23 16:14:00 36.5 Deborah [facility] Respiratory rate 2022-02-23 16:14:00 16 /min [facility] Body weight 2022-02-23 16:14:00 79.379 kg Universi ty of [facility] BMI 2022-02-23 16:14:00 32.01 kg/m2 Universi ty of [facility] Oxygen saturation in 2022-02-23 16:14:00 99 /min University of Arterial blood by [facility] Pulse oximetry Branch Systolic blood 2022-02-16 18:06:00 111 mm[Hg[facility] Diastolic blood 2022-02-16 18:06:00 67 mm[Hg[facility] Heart rate 2022-02-16 18:06:00 92 /min Universi ty [facility] Body temperature 2022-02-16 18:06:00 36.72 Deborah [facility] Respiratory rate 2022-02-16 18:06:00 12 /min [facility] Body height 2022-02-16 18:06:00 157.5 cm Universi ty of [facility] Body weight 2022-02-16 18:06:00 83.507 kg Universi ty [facility] BMI 2022-02-16 18:06:00 33.67 kg/m2 Universi ty [facility] Oxygen saturation in 2022-02-16 18:06:00 97 /min University of Arterial blood by [facility] Pulse oximetry Reader Procedures Procedure Date / Time Performed Performing Clinician [facility] e VITAMIN B12, LEVEL 2022-03-09 16:25:00 Mai Armas [facility] FLU VACC ([id number]), 2022-03-09 15:59:52 Mai Armas [facility] 6 MO-64 YRS, .5ML, IM, Medical B ranch QUAD (FLUCELVAX) CT CERVICAL SPINE WO 2022-02-23 17:21:04 Pablo Osman [facility] ity [facility] CONTRAST [facility] CT HEAD WO CONTRAST 2022-02-23 17:21:04 Pablo [facility]man [facility] XR CHEST 1 VW 2022-02-23 16:57:59 Pablo Osman [facility] ASSIGNMENT OF BENEFITS 2022-02-23 16:50:19 Doctor Unassigned, No [facility] Name [facility] CONSENT/REFUSAL FOR 2022-02-23 16:04:45 Doctor Unassigned, No [facility] DIAGNOSIS AND Name [facility] TREATMENT [id number] 2019-06-06 00:00:00 OBE [facility] [id number] 2019-06-06 00:00:00 OBE [facility] Encounters Start End Encounter Admission Attending Care Care Encounter Source Date/Time Date/Time Type Type Clinicians Facility Department ID 2019-06-06 Inpatient SamuelGEE BRIONNA [id number] [facility] 06:56:00 [facility]ilan [facility] 2019-06-05 Inpatient GEE Samuel BRIONNA [id number] [facility] 10:43:00 Beilan [facility] 2022-04-08 2022-04-08 Outpatient R LEONILA [facility] [id number] Univers 08:40:00 08:40:00 [facility] 2022-04-08 2022-04-08 Outpatient R LEONILA [facility] [id number] Univers 08:40:00 08:40:00 [facility] 2022-03-15 2022-03-15 Outpatient R MAI ARMAS [facility] [id number] Univers 10:00:00 10:00:00 MAI ARMAS [facility] 2022-03-15 2022-03-15 Patient Pawel SDTERE 1.2.840.114 [id number] Univers 00:00:00 00:00:00 Secure Msg Mai PHILIP [id number] [facility] [id number] Ck [place] [phone] [address] 2022-03-12 2022-03-12 Telephone KIARA Armas 1.2.840.114 [id number] Univers 00:00:00 00:00:00 Ogrich PHILIP [id number] ity [id number] [id number] Ks dical NAL 044 [facility] 2022-03-10 2022-03-10 Telephone Pawel [facility] [id number] Univers 00:00:00 00:00:00 Ogrich PHILIP [id number] ity [id number] [id number] Ks dical NAL 231 [facility] 2022-03-09 2022-03-09 Pr Manager 2, Adc Lab [facility] 1.2.840.114 [id number] [facility] 10:30:00 10:45:00 Visit Mai Armas MUNIRCHELO 350.1.13.1 0 ity [id number] [id number] Ks dical JACKIE 353 [facility] 2022-03-09 2022-03-09 Outpatient R MAI ARMAS [facility] [id number] Univers 09:30:00 10:14:33 MAI ARMAS ity of [facility] 2022-03-09 2022-03-09 Office Pawel [facility] 1.2.840.114 [id number] [facility] 09:30:00 10:14:33 Visit Moisesleathacandace PHILIP [id number] ity of [place] [id number] [id number] Ks dical NAL 044 [facility] 2022-02-24 2022-02-24 Office Pawel [facility] 1.2.840.114 [id number] [facility] Univers 16:00:00 16:30:00 Visit Moisesleathacandace PHILIP [id number] ity of [place] [id number] [phone] Ks dical NAL 044 [facility] 2022-02-24 2022-02-24 Outpatient R MOISES ARMASLeathaCandace [facility] [id number] Univers 16:00:00 16:00:00 MAI ARMAS ity [facility] 2022-02-23 2022-02-23 Emergency X NASIR, [facility] ERT [id number] Univers 10:17:00 14:40:00 PABLO ity [facility] 2022-02-23 2022-02-23 [facility] [id number] Univers 10:17:00 14:40:00 Pablo PHILIP [id number] i ty of [id number] [place] [phone] [facility] 084 Branch 2022-02-16 2022-02-16 Urgent Priscilla Avilaumupatricia [facility] 1.2.840. 114 [id number] Univers 12:00:00 12:20:00 Care Unknown, Attending HEALTH [id number] ity of [place] [id number] Luis Fernando as OSVALDO?BLEA [phone] [facility] [address] MEDICAL OFFICE BUILDING 2022-02-16 2022-02-16 Outpatient R VJ [facility] [id number] Univers 12:00:00 12:00:00 JACQUI [facility] 2021-11-13 2021-11-13 Outpatient R MOISES ARMASHOANG [facility] [id number] Univers 09:30:00 09:30:00 [facility] 2021-10-30 2021-10-30 Telephone [facility] 1.2.840.114 [id number] Univers 00:00:00 00:00:00 Gloria PHILIP [id number] ity [facility] [id number] [place] [facility] [phone] [facility] 231 Branch BUILDING 2021-10-08 2021-10-08 Tele[facility] 1.2.840.114 [id number] Univers 00:00:00 00:00:00 Gloria PHILIP [id number] ity of [place] [id number] [phone] Ks dicema MEJIA 044 [facility] 2021-10-07 2021-10-07 Pr Manager 2, Adc Lab [facility] 1.2.840.114 [id number] Univers 10:45:00 11:00:00 Visit Jay Armaschikicandace PHILIP 350.1.13.1 0 ity of [place] [id number] [id number] Ks ryan MEJIA 353 [facility] 2021-10-07 2021-10-07 Outpatient R MAI ARMAS [facility] [id number] Univers 10:45:00 10:45:00 MAI ARMAS italen [facility] 2021-10-07 2021-10-07 Office Pawel [facility] 1.2.840.114 [id number] Univers 09:30:00 10:31:52 Visit Mai PHILIP [id number] ity of [place] 4.2.[place].2.[place] [phone] Ks ryan MEJIA 044 [facility] 2021-10-07 2021-10-07 Outpatient R MAI ARMAS [facility] [id number] Univers 09:30:00 10:31:52 MAI ARMAS italen [facility] 2021-07-15 2021-07-15 Office Pawel [facility] 1.2.840.114 [id number] Univers 10:00:00 10:17:10 Visit Mai PHILIP [id number] ity of [place] [id number] [phone] Ks ryan MEJIA 044 [facility] 2021-07-15 2021-07-15 Outpatient R MAI ARMAS [facility] [id number] Univers 10:00:00 10:17:10 MAI ARMAS ity [facility] 2021-07-15 2021-07-15 Outpatient R MARY KAY ARMASNEERUCandace [facility] [id number] Univers 10:00:00 10:00:00 MAI ARMAS [facility] 2021-06-01 2021-06-01 Office [facility] 1.2.840.114 [id number] Univers 13:00:00 13:24:23 Visit [facility] [id number] it y of [place] 4.2.7.2.686 Luis Fernando as OSVALDO?BLEA [id number] [address] OFFICE [facility] 2021-06-01 2021-06-01 [facility] [id number] Univers 13:00:00 13:24:23 [facility] 2021-06-01 2021-06-01 Outpatient R [facility] [id number] Univers 13:00:00 13:00:00 [facility] 2021-06-01 2021-06-01 Orders Doctor PACO 1.2.840.114 [id number] Univers 00:00:00 00:00:00 Only Unassigned, AYANNA [id number] ity of [place] [facility] 4.2.7.2.686 Luis Fernando as [phone] [address] 2021-03-23 2021-03-23 Patient [facility] 1.2.840.114 [id number] Univers 00:00:00 00:00:00 Secure Msg Brianna PHILIP [id number] ity of [place] 4.2.[place].2.[place] [id number] Ks dical NAL 044 [facility] 2021-03-20 2021-03-20 Telephone [facility] 1.2.840.114 [id number] Univers 00:00:00 00:00:00 Brianna PHILIP 350.1.13.10 i ty of [place] 4.2.7.2.686 [place] [phone] Ks dical NAL 044 [facility] 2021-03-18 2021-03-18 Outpatient R EDMIKEKONG, [facility] [id number] Univers 08:29:37 23:59:00 BRIANNA puente [facility] 2021-03-18 2021-03-18 Outpatient R GUSTAVO [facility] [id number] Univers 08:29:37 23:59:00 BRIANNA puente [facility] 2021-03-18 2021-03-18 [facility] 1.2.840.114 [id number] Univers 08:00:00 23:59:00 Encounter Brianna PHILIP [id number] ity [facility] [id number] [id number] [facility] [address] [place] [address] 2021-03-17 2021-03-17 Telephone [facility] 1.2.840.114 [id number] Univers 00:00:00 00:00:00 Ezio PHILIP [id number] ity [facility] [id number] [id number] Ks dical NAL 092 [facility] 2021-03-17 2021-03-17 Telephone [facility] 1.2.840.114 [id number] Univers 00:00:00 00:00:00 Ezio PHILIP [id number] ity [facility] [id number] [id number] Ks dical NAL 092 [facility] 2021-03-12 2021-03-12 Outpatient R GUSTAVO [facility] [id number] Univers 09:45:00 09:45:00 BRIANNA puente [facility] 2021-03-12 2021-03-12 Pr Manager Ana, [facility] Main [facility] 1.2.8 40.114 [id number] Univers 08:34:55 08:49:55 Visit Gustavo Brianna PHILIP 350.1.13.10 ity [facility] [id number] [id number] Ks dical NAL 353 [facility] 2021-03-12 2021-03-12 Orders Doctor ANTONIO 1.2.840.114 [id number] Univers 00:00:00 00:00:00 Only Unassigned, AYANNA 350.1.13.10 [facility] [place] [facility] 4.2.7.2.686 Luis Fernando as [phone] [address] 2021-03-11 2021-03-11 Outpatient R JER[facility]ERESASH[facility] [id number] Univers 14:40:00 14:40:00 BRIANNA michaelalen [facility] 2021-03-11 2021-03-11 Outpatient R JERZYMIEKTERESASHANNANGUERNSE[facility] [id number] Univers 09:40:00 11:52:48 BRIANNA puente [facility] 2021-03-11 2021-03-11 Telemedici [facility] 1.2.840.114 [id number] Univers 07:49:46 11:52:48 ne Visit Brianna PHILIP 350.1.13.10 ity of [place] 4.2.[place].2.[place] [id number] Ks dical NAL 044 [facility] 2021-03-10 2021-03-10 Telephone [facility] 1.2.840.114 [id number] Univers 00:00:00 00:00:00 Ezio PHILIP 350.1.13.10 ity of [place] 4.[place].2.[place] [id number] Ks dical NAL 092 [facility] 2021-03-06 2021-03-06 Patient [facility] 1.2.840.114 [id number] Univers 00:00:00 00:00:00 Secure Msg Gloria Fagan CEDRICK [id number] ity of [place] 4.[place].2.[place] [phone] Ks dical NAL 044 [facility] 2021-02-26 2021-02-26 Outpatient R MOSES MIRELES [facility] [id number] Univers 19:30:00 19:30:00 MOSES MIRELES italen [facility] 2021-02-26 2021-02-26 Pr Manager 1, [facility] Sleep Lab Bed [facility] 1. 2.840.114 [id number] Univers 15:14:08 17:44:08 Visit Moses Mireles 350.1.13. 10 ity of [place] 4.2.7.2.686 [facility] [phone] [facility] 193 Branch 2021-02-26 2021-02-26 Orders Doctor PACO 1.2.840.114 [id number] Univers 00:00:00 00:00:00 Only Unassigned, AYANNA 350.1.13.10 ity of [facility] 4.2.7.2.686 Luis Fernando as [phone] [facility] 009 Branch 2021-02-24 2021-02-24 Pr Manager Ana, Adc Lab Main [facility] 1.2.8 40.114 [id number] Univers 08:13:14 08:28:14 Visit Gloria Mosquera 350.1. 13.10 ity of [place] 4.2.7.2.686 [facility] PROFESSIO [phone] [facility] 353 [facility] 2021-02-24 2021-02-24 Laboratory Only, Adc Test [place] 1.2.840. 114 [id number] Univers 08:11:58 08:26:58 Only Moses Mireles 350.1.13. 10 ity [facility] 4.2.7.2.686 [facility] [phone] [facility] [address] 2021-02-24 2021-02-24 Outpatient R LEONILA [facility] [id number] Univers 08:15:00 08:15:00 GLORIA puente [facility] 2021-01-30 2021-01-30 Outpatient R MOSES MIRELES [facility] [id number] Univers 19:30:00 19:30:00 MOSES MIRELES [facility] 2021-01-28 2021-01-28 Laboratory Only, Adc Test [facility] 1.2.840. 114 [id number] Univers 08:49:58 09:04:58 Only Triston Hurtado [id number] [facility]y of [place] [id number] [facility] [phone] [address] 2021-01-28 2021-01-28 Outpatient R [facility] [id number] Univers 09:00:00 09:00:00 [facility] 2020-12-23 2020-12-23 [facility] [id number] Univers 19:30:00 19:30:00 YOANAMOSES LOWE [facility] 2020-12-20 2020-12-20 Laboratory Only, Ang Db Test [facility] 1.2.8 40.114 [id number] Univers 09:00:33 09:15:33 Only Unknown, Attending [id number] [facility] [id number] Luis Fernando as Osvaldo?Blea [phone] [address] Medical Office Building 2020-12-20 2020-12-20 Outpatient R ESTHER [facility] [id number] Univers 09:10:00 09:10:00 ATTENDING [facility] 2020-12-19 2020-12-19 Outpatient R [facility] [id number] Univers 08:15:00 08:15:00 [facility] 2020-11-28 2020-11-28 Outpatient R EZIO FENG [facility] [id number] Univers 10:00:00 10:00:00 EZIO FENG [facility] 2020-11-10 2020-11-10 Outpatient R EZIO FENG [facility] [id number] Univers 09:20:00 09:20:00 EZIO FENG [facility] 2020-10-14 2020-10-14 Outpatient R ANUM [facility] [id number] Univers 12:00:00 12:00:00 [facility] 2020-09-09 2020-09-09 Outpatient R ANUM [facility] [id number] Univers 13:00:00 13:00:00 [facility] 2020-08-08 2020-08-08 Outpatient R LEONILA [facility] [id number] Univers 12:30:00 12:30:00 GLORIA [facility] 2020-07-31 2020-07-31 Outpatient R LEONILA [facility] [id number] Univers 16:20:00 16:20:00 GLORIA [facility] 2020-06-27 2020-06-27 [facility] [id number] Univers 10:00:00 10:00:00 [facility] 2020-06-04 2020-06-04 [facility] 1.2.840.114 [id number] 00:00:00 00:00:00 Gloria Philip [id number] [place] [id number] Professio [phone] [address] 2020-05-27 2020-05-27 [facility] [id number] Univers 09:40:00 09:40:00 BRIANNA [facility] 2020-05-12 2020-05-12 [facility] 1.2.840.114 [id number] 00:00:00 00:00:00 Gloria Philip [id number] [place] [id number] Profsusana [phone] [address] 2020-05-10 2020-05-10 Outpatient R [facility] [id number] Univers 09:00:00 09:00:00 [facility] 2020-04-25 2020-04-25 [facility] [id number] Univers 10:15:00 10:15:00 FREDDIE [facility] 2020-04-24 2020-04-24 [facility] [id number] Univers 15:40:00 15:40:00 GLORIA [facility] 2020-04-24 2020-04-24 [facility]medici [facility] [id number] 08:10:06 08:30:06 ne Visit Gloria Philip [id number] [place] [id number] kianashahana [phone] [address] 2020-03-17 2020-03-17 Outpatient R ANUM [facility] [id number] Univers 17:32:07 23:59:00 BETHANY ity [facility] 2020-03-11 2020-03-11 Emergency X KAREY, [facility] ERT [id number] Univers 19:46:00 23:36:00 BROOKLYNN italen [facility] 2020-03-11 2020-03-11 Outpatient R [facility] [id number] Univers 09:20:00 09:20:00 ity [facility] 2020-01-22 2020-01-22 [facility] [id number] Univers 08:00:00 08:00:00 BRIANNA italen [facility] 2020-01-09 2020-01-09 [facility] [id number] Univers 08:40:00 08:40:00 BRIANNA ity [facility] 2019-12-26 2019-12-26 [facility] [id number] Univers 09:40:00 09:40:00 BRIANNA ity [facility] 2019-12-22 2019-12-22 Outpatient R [facility] [id number] Univers 10:00:00 10:00:00 ity of [facility] 2019-10-17 2019-10-17 Outpatient R [facility] [id number] Univers 10:00:00 10:00:00 ity of [facility] 2019-10-09 2019-10-09 Outpatient R [facility] [id number] Univers 10:40:00 10:40:00 ity of [facility] 2019-09-07 2019-09-07 Outpatient R BERNABE, [facility] [id number] Univers 08:00:00 08:00:00 WONDIFUL ity o f [facility] 2019-09-06 2019-09-06 Outpatient R BERNABE [facility] [id number] Univers 09:30:00 09:30:00 WONDIFUL ity o f [facility] Results Test Description Test Time Test Comments Results Result Comments Source AG HEPATITIS B SURFACE 2019-06-06 08:48:00 Test Item Value Reference Range Interpretation Comme nts AG HEPATITIS B SURFACE (test code = HBSAG) NONREACTIVE NONREACTIVE IS CONSENT FORM SIGNED FOR HIV TESTING? YAB HEPATITIS C [id number] 08:48:00 Test Item Value Reference Range Interpretation Comments AB HEPATITIS C (test code = NONREACTIVE NONREACTIVE HCVAB) SIGNAL TO CUTOFF (test code = <0.02 <0.80 N CUTOFF) IS CONSENT FORM SIGNED FOR HIV TESTING? YAB [id number] 08:48:00 Test Item Value Reference Range Interpretation Comments AB TREPONEMA (test code = TREPAB) NONREACTIVE NONREACTIVE IS CONSENT FORM SIGNED FOR HIV TESTING? YAB HIV 1 08:48:00 Test Item Value Reference Range Interpretation Comments AB HIV 1 2 (test NONREACTIVE NONREACTIVE Done by Sie [facility]aur code = [id number]) 4th Gen HIV Ag/Ab Combo Screen IS CONSENT FORM SIGNED FOR HIV TESTING? YAG HEPATITIS B [id number] 08:17:00 Test Item Value Reference Range Interpretation Comments AG HEPATITIS B SURFACE (test code NONREACTIVE NONREACTIVE = HBSAG) IS CONSENT FORM SIGNED FOR HIV TESTING? YAB HEPATITIS C [id number] 08:17:00 Test Item Value Reference Range Interpretation Comments AB HEPATITIS C (test code = HCVAB) NONREACTIVE SIGNAL TO CUTOFF (test code = CUTOFF) <0.80 IS CONSENT FORM SIGNED FOR HIV TESTING? YAB [id number] 08:17:00 Test Item Value Reference Range Interpretation Comments AB TREPONEMA (test code = TREPAB) NONREACTIVE NONREACTIVE IS CONSENT FORM SIGNED FOR HIV TESTING? YAB HIV 1 08:17:00 Test Item Value Reference Range Interpretation Comments AB HIV 1 2 (test code = [id number]) NONREACTIVE IS CONSENT FORM SIGNED FOR HIV TESTING? YCBC W/AUTO [id number] 07:27:00 Test Item Value Reference Range Interpretation [...] = PLTMR) - US FET BIO PH MA W/O [id number] 13:30:00 Patient Name: DALE CLARKE Unit No: [id number] EXAMS: CPT CODE: [id number] US FET BIO PH MA W/O NST 31662 [facility] [address], [place] [address] BIOPHYSICAL PROFILE ULTRASOUND REPORT Pat. Name: DALE CLARKE Pat. No: [id number] Study Date: 06/05/2019 12:33pm , Age: 06 1995, 23 LMP: Unknown GA Selected: 38w6d (From Known E) JOSE: 06/13/2019 Referring MD: TITA SAMUEL Farm Machine Tender: Kathleen Maravilla RDMS CPT4: USBPPWONST Admitting MD: TITA SAMUEL Hist/Ind: 1ST SCAN LOF CTX PRESSURE Heart Rate: 147 bpm Amniotic Fluid Index: 17.5cm (07.2-22.8) Q1: 2.7cm Q2: 4.8cm Q3: 3.0cm Q4: 6.9cm Biophysical Profile: 11/16 Breathin Tone: 2 Movement: 2 AFV: 2 CLINICAL SUMMARY Type of Gestation: Galeano Intrauterine in vertex presentation. motion and organs seen: heart motion seen body and limb movements observed tone noted breathing movements observed Placental location: Posterior Placental maturity : Grade 2 There is noevidence of placenta previa. Amniotic fluid volume is normal. Uterus and adnexa: No significant abnormality is seen. Thank you for allowing us to participate in the care of this patient. Nishant Perez M.D. Electronic Signature 06/05/2019 01:30pm at 1330 Reported and signed by: Nishant Perez MD [facility] NAME: SIXTO CLARKESENAIT Radiology Department PHYS: Tita Vargas MD [address] : 1995 AGE: 23 SEX: F [place] [address] LOC: CristinaBRIONNA PHONE #: [phone] EXAM DATE: 06/05/2019 STATUS: REG ER FAX #: [phone] RAD NO: Page 1 Signed Report (CONTINUED) Patient Name: DALE GONZALEZ Unit No: [id number] EXAMS: CPT CODE: [id number] US FET BIO PH MA W/O NST 97541 (Continued) CC: Tita Samuel MD Technologist: Kathleen Maravilla RDMS Probe: Trnscrbd D/ (1330) [email or web address] Orig Print D/T: S: 06/05/2019 (1330) [facility] NAME: SIXTO CLARKEMARY LOUGracia Bharat adiology Department PHYS: Tita Vargas MD [address] : 1995 AGE: 23 SEX: F [place] [address] LOC: CristinaBRIONNA PHONE #: [phone] EXAM DATE: 06/05/2019 STATUS: REG ER FAX #: [phone] RAD NO: Page 2 Signed Report Patient Name: DALE CLARKE Unit No: [id number] EXAMS: CPT CODE: [id number] US FET BIO PH MA W/O NST [address]11 (Continued) The [facility] NAME: DALE CLARKE Radiology Department PHYS: Tita Vargas MD [address] : 1995 AGE: 23 SEX: F [place] [address] LOC: CristinaBRIONNA PHONE #: [phone] EXAMDATE: 06/05/2019 STATUS: REG ER FAX #: [phone] RAD NO: Page 3 Signed Report
[2022-05-05 18:07] LABS: Urine Blood Trace-intact (Negative); Urine Glucose Negative (Negative); Urine Protein Negative (Negative); Urine Specific Gravity >=1.030 (1.005-1.030); Urine pH 5.5 (5.0-7.0)
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
[2022-05-05 19:13] LABS: Urine Specific Gravity/Preg >1.030 (1.005-1.030)
[2022-05-05] MEDS ORDERED: ACETAMINOPHEN 325 MG TABLET ONE (19:18)
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
[2022-05-05 20:58] VITALS: BP 111/71; TEMP 98.8; O2SAT 100
== END 2022-05-05 19:37 | disposition home or self-care (01) ==
LOC: ER 16:18
DX: S39.012A Strain of muscle, fascia and tendon of lower back, initial encounter (principal); S16.1XXA Strain of muscle, fascia and tendon at neck level, initial encounter; S29.012A Strain of muscle and tendon of back wall of thorax, initial encounter
CPT/HCPCS: 81025; 81003; 70450; 72125; 71260; 74177; Q9967

== ENCOUNTER 2025-01-25 10:26 | Emergency (ER) | payer BC, OTHER ==
--- OUTSIDE RECORDS SUMMARY | 2025-01-25 10:38 | XMS REPORT | Continuity of Care Document ---
Author Name Unknown Address [address] [facility] [place] [address] [facility] [place] Address [address] [facility] [place] [address] Care Team Providers Care Senior Safety Support Manager Name Role Phone Brianna Chen MD Primary Care Physician + [phone] Tita Samuel Attending Clinician Unavailable BRIANNA CHEN Attending Clinician Unavailable APOLINAR SPARROW Attending Clinician Unavailable Nurse-c, [facility] Attending Clinician Unavailab Jung Delgadillo MD Attending Clinician [phone] Leonidas Perry MD Attending Clinician [phone] Apolinar Sparrow MD Attending Clinician [phone] Brianna Chen MD Attending Clinician [phone] MARIA R SEAMAN Attending Clinician Unavailable Pob, [facility] Main Attending Clinician Unavaillisa calixto 2, [facility] Attending Clinician Unavailable FERNIE AZUL Attending Clinician Unavail able Pawel MECHANICAL SYSTEMS ENGINEER, Mai Attending Clinician [phone] MAI ARMAS Attending Clinician Unavailab MAI Nelson Attending Clinician Unavailab DARCI Lieberman Attending Clinician Unavail able Pcp-Lab Attending Clinician Unavailable Eriberto SAHNI, Anup Attending Clinician [phone] Kristina SAHNI, ab Martinez Attending Clinician [phone] ANUP WEI Attending Clinician Unavailable TAMIKA MENDEZ Attending Clinician Unavailable TAMIKA MENDEZ Attending Clinician Unavailable Tamika Mendez DO Attending Clinician [phone] JOHANNA LE Attending Clinician Unavailab JOHANNA Reveles Attending Clinician Unavailab JESSA Abraham Attending Clinician Unavailable Hung MORE, Jessa Attending Clinician + PETRONA RASMUSSEN Attending Clinician Unavailable Petrona Rasmussen MD Attending Clinician [phone] Unknown, Attending Attending Clinician Unavailab DEWAYNE Rodríguez Attending Clinician Unavailable Traci CHAUDHARI, Alyx Fagan Attending Clinician Unav ailable 2, [facility] Attending Clinician Unavailable Brianna Chen MD Attending Clinician + Dewayne Amaral MD Attending Clinician [phone] Doctor Unassigned, Gilchrist Attending Clinician U navailable Nurse, [facility] Fam Attending Clinician Unavailable Pob, [facility] Main Attending Clinician Unavaillisa e Lab, Ang - Db Attending Clinician Unavailable GLORIA MOSQUERA Attending Clinician Unava ilable PABLO OSMAN Attending Clinician Unavailable Pablo Osmna MD Attending Clinician [phone] Jacqui Brar Attending Clinician [phone] JACQUI AVILA Attending Clinician UnavailGloria Wang MD Attending Clinician [phone] Jamshid Godoy MD Attending Clinician [phone] JAMSHID GODOY Attending Clinician Unavailable Ezio Mae MD Attending Clinician [phone] MOSES MIRELES Attending Clinician UnavailMOSES Moreno Attending Clinician Unavaila ble 1, [facility] Sleep Lab Bed Attending Clinician Unavail Moses Botello MD Attending Clinician [phone] Only, Adc Test Attending Clinician Unavailable Fernie Hurtado MD Attending Clinician Only, Ang Db Test Attending Clinician Unavailabl e UNKNOWN, ATTENDING Attending Clinician Unavailab EZIO Ellsworth Attending Clinician Unavail able EZIO MAE Attending Clinician Unavail able BETHANY ROWAN Attending Clinician Unavailable LEONIDAS PERRY Attending Clinician Unavailable BROOKLYNN EDEN Attending Clinician Unavailable MARIELLA KIDD Attending Clinician Unavaila Tita Christina Admitting Clinician Unavailable TAMIKA MENDEZ Admitting Clinician Unavailable PABLO OSMAN Admitting Clinician Unavailable BRIANNA CHEN Admitting Clinician Unavailable BETHANY ROWAN Admitting Clinician Unavailable BROOKLYNN EDEN Admitting Clinician Unavailable Payers Payer Name Policy Type Policy Number Effective Date Expirati on Date Source [facility] [employer] [id number] 2024 00:00:00 [facility] [id number] 2016 00:00:00 [facility] [id number] 2014 00:00:00 Problems Condition Name Condition Details Condition Category Status Onset Date Resolution Date Last Treatment Date Treating Clinician Comments Source Pain and swelling of left ankle Pain and swelling of left ankle Disease Active 08-30 00:00: 00 [facility] Laceration of left ankle, initial encounter Laceration of left ankle, initial encounter Disease Active 08-30 00:00: 00 [facility] Colloid thyroid nodule Colloid thyroid nodule Disease Active 08-30 00:00: 00 [facility] Generalize d anxiety disorder with panic attacks Generalize d anxiety disorder with panic attacks Disease Active 06-11 00:00: 00 [facility] Attention deficit hyperactiv ity disorder (ADHD), predominan tly inattentiv e type Attention deficit hyperactiv ity disorder (ADHD), predominan tly inattentiv e type Disease Active 3-03 00:00: 00 [facility] 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 ICD10 Diagnosis Term [place] Utility [facility] Agitation Agitation Disease Resolve d 3 00:00: 00 2024-08-30 00:00:00 2024-08-30 09:09:54 [facility] COVID-19 COVID-19 Disease Resolve d 10-09 00:00: 00 2024-08-30 00:00:00 2024-08-30 08:59:17 [facility] Confusion state Confusion state Disease Resolve d 2020-04 2 00:00: 00 2024-08-30 00:00:00 2024-08-30 08:59:21 [facility] Dysphagia, unspecifie d type Dysphagia, unspecifie d type Disease Resolve d 2020-04 2 00:00: 00 2024-08-30 00:00:00 2024-08-30 08:59:15 [facility] Pressure in head Pressure in head Disease Resolve d 16 00:00: 00 2024-08-30 00:00:00 2024-08-30 08:58:49 [facility] Altered level of consciousn ess Altered level of consciousn ess Disease Resolve d 9-16 00:00: 00 2024-08-30 00:00:00 2024-08-30 08:59:37 [facility] SOB (shortness of breath) SOB (shortness of breath) Disease Resolve d -28 00:00: 00 2024-08-30 00:00:00 2024-08-30 08:58:46 [facility] Irregular menstrual cycle Irregular menstrual cycle Disease Resolve d 10-13 00:00: 00 2024-08-30 00:00:00 2024-08-30 08:59:02 [facility] Anxiety Anxiety Disease Resolve d 16 00:00: 00 2021-12-31 00:00:00 2021-12-31 09:38:11 [facility] Post depression Post depression Disease Resolve d 916 00:00: 00 2020-08-02 00:00:00 2020-08-02 21:44:48 [facility] GBS (group B streptococ cus) UTI complicati ng GBS (group B streptococ cus) UTI complicati ng Disease Resolve d 2016-04 00:00: 00 2020-08-02 00:00:00 2020-08-02 21:44:41 [facility] Nexplanon removal Nexplanon removal Disease Resolve d 10-15 00:00: 00 2020-08-02 00:00:00 2020-08-02 21:44:37 [facility] Breakthrou gh bleeding on Implanon Breakthrou gh bleeding on Implanon Disease Resolve d 705 00:00: 00 2020-08-02 00:00:00 2020-08-02 21:44:45 [facility] Rubella non-immune status, antepartum Rubella non-immune status, antepartum Disease Resolve d 10-25 00:00: 00 2020-08-02 00:00:00 2020-08-02 21:44:51 [facility] Immune to varicella Immune to varicella Disease Resolve d 10-25 00:00: 00 2020-08-02 00:00:00 2020-08-02 21:44:39 [facility] Rh incompatib ility in , antepartum Rh incompatib ility in , antepartum Disease Resolve d 8- 00:00: 00 2020-08-02 00:00:00 2021-10-25 00:25:45 [facility] High-risk High-risk Disease Resolve d 7-30 00:00: 00 2020-08-02 00:00:00 2021-10-25 00:25:43 [facility] Family history of diabetes mellitus Family history of diabetes mellitus Disease Resolve d 11-07 00:00: 00 2020-08-02 00:00:00 2020-08-02 21:44:44 [facility] Need for prophylact ic vaccinatio n with measles-mu mps-rubell a (MMR) vaccine Need for prophylact ic vaccinatio n with measles-mu mps-rubell a (MMR) vaccine Disease Resolve d 815 00:00: 00 2013-10-24 00:00:00 2013-10-24 09:37:45 [facility] Need for prophylact ic vaccinatio n with combined diphtheria -tetanus-p ertussis (DTP) vaccine Need for prophylact ic vaccinatio n with combined diphtheria -tetanus-p ertussis (DTP) vaccine Disease Resolve d 11-07 00:00: 00 2013-10-24 00:00:00 2013-10-24 09:37:48 [facility] Nausea and vomiting of , antepartum Nausea and vomiting of , antepartum Disease Resolve d 11-07 00:00: 00 2012-12-05 00:00:00 2012-12-05 10:14:48 [facility] Nausea and vomiting of , antepartum Nausea and vomiting of , antepartum Disease Resolve d 11-07 00:00: 00 2012-12-05 00:00:00 2012-12-05 10:14:48 [facility] Allergies, Adverse Reactions, Alerts Allergy Name Allergy Type Status Severity Reaction(s) Onset Date Inactive Date Treating Clinician Comments Source Rubia bethea Propensi ty to adverse reaction s Active Anxiety 10-07 00:00: 00 Pt. Request removal [facility] RUBIA BETHEA DRUG INGREDI Active Anxiety 10-07 00:00: 00 [facility] No Known Allergie s DA Active U - 00:00: 00 [facility] No Known Allergie s DA Active U 06-06 00:00: 00 [facility] No Known Allergie s DA Active U 06-17 00:00: 00 [facility] No Known Allergie s DA Active U 06-17 00:00: 00 [facility] Social History Social Habit Start Date Stop Date Quantity Comments Source Gender identity [facility] History of Social function 2024-08-30 00:00:00 2024-08-30 00:00:00 [facility] Alcoholic beverage intake 2024-08-30 00:00:00 2024-08-30 00:00:00 Ex-drinker (finding) [facility] Alcohol intake 2023-08-02 00:00:00 2023-08-02 00:00:00 Current drinker of alcohol (finding) [facility] Exposure to SARS-CoV-2 (event) 2022-06-01 00:00:00 2022-06-11 08:56:00 Not sure [facility] Alcohol Comment 2013-10-24 00:00:00 2013-10-24 00:00:00 before on occasion [facility] Tobacco use and exposure 2012-11-07 00:00:00 2012-11-07 00:00:00 Smokeless tobacco non-user [facility] Sex assigned at 1995 00:00:00 1995 00:00:00 [facility] Smoking Status Start Date Stop Date Source Never smoked tobacco [facility] Medications Ordered Medication Name Filled Medication Name Start Date Stop Date Current Medication? Ordering Clinician Indication Dosage Frequency Signature (SIG) Comments Components Source ergocalcife rol, vitamin d2, 1,250 mcg (50,000 unit) capsule 09-03 00:00: 00 Yes [id number] Take 1 capsule by mouth weekly. [facility] calcium carbonate (OYSTER SHELL CALCIUM 500) 500 mg calcium (1,250 mg) tablet 09-03 00:00: 00 Yes [id number] 500mg Take 1 tablet by mouth in the morning. [facility] benzonatate 100 mg capsule 09-15 00:00: 00 03-28 00:00 :00 No [id number] 200mg Take 2 capsules by mouth every 8 (eight) hours as needed for Cough. [facility] bromphenira mine-pseudo ephedrine-D M (BROMFED DM) 2-30-10 mg/5 mL syrup 09-15 00:00: 00 03-28 00:00 :00 No [id number] 10mL Take 10 mL by mouth 4 (four) times daily as needed for Cold symptoms, Congestion /Allergies or Cough. [facility] cyanocobala min 1,000 mcg/mL injection 2022-04 0 00:00: 00 Yes [id number] 1000ug inject 1 mL under the skin every 14 (fourteen) days. [facility] Syringe-Nee dle, Safety,Disp Un 3 mL 25 gauge x 5/8" Syrg 2022-04 00:00: 00 Yes [id number] Use as directed [facility] buPROPion XL 150 mg 24 hr tablet 2022-04 00:00: 00 03-28 00:00 :00 No [id number] 150mg Take 1 tablet by mouth in the morning. [facility] naltrexone 50 mg tablet 2022-04 00:00: 00 03-28 00:00 :00 No [id number] 50mg Take 1 tablet by mouth in the morning. [facility] cyanocobala min (DODEX) injection 2,000 mcg -26 15:30: 00 01-04 14:27 :00 No [id number] 2000ug [facility] semaglutide , weight loss, 0.25 mg/0.5 mL PnIj SC injection 16 16:28: 37 08-24 00:00 :00 No .25mg inject 0.25 mg under the skin weekly. Inject 0.25 MG under the skin weekly for 30 days. [facility] semaglutide , weight loss, 0.25 mg/0.5 mL PnIj SC injection 08-24 00:00: 11-05 00:00 :00 No .25mg inject 0.25 mg under the skin weekly. Inject 0.25 MG under the skin weekly for 30 days. [facility] ergocalcife rol, vitamin d2, (VITAMIN D2) 1,250 mcg (50,000 unit) capsule 07-09 00:00: 00 11-05 00:00 :00 No [id number] Take 1 capsule by mouth weekly. [facility] atomoxetine 10 mg capsule 06-11 00:00: 00 11-05 00:00 :00 No [id number] 10mg Take 1 capsule by mouth in the morning. [facility] cyanocobala min (DODEX) injection 2,000 mcg 06-09 23:30: 00 06-09 22:46 :00 No [id number] 2000ug [facility] semaglutide , weight loss, (WEGOVY) 0.25 mg/0.5 mL PnIj SC injection 06-09 00:00: 00 07-10 04:59 :00 No [id number] .25mg inject 0.25 mg under the skin weekly for 30 days. [facility] semaglutide , weight loss, (WEGOVY) 0.5 mg/0.5 mL PnIj SC injection 06-09 00:00: 00 07-10 04:59 :00 No [id number] .5mg inject 0.5 mg under the skin weekly for 30 days. [facility] semaglutide , weight loss, (WEGOVY) 1 mg/0.5 mL PnIj SC injection 06-09 00:00: 00 07-10 04:59 :00 No [id number] 1mg inject 1 mg under the skin weekly for 30 days. [facility] Etonogestre l (NEXPLANON) 68 mg implant 2021-04 12:07: 40 03-25 00:00 :00 No 68mg 68 mg by Subdermal route once now. [facility] cyanocobala min (DODEX) injection 2,000 mcg 2021-04 17:00: 00 03-09 16:44 :00 No [id number] 2000ug [facility] acetaminoph en (TYLENOL) tablet 1,000 mg 2021-04 18:45: 00 02-23 18:34 :00 No 1000mg 1,000 mg, Oral, ONCE, 1 dose, On Tue02/23/22 at 1245, FILI [facility] ibuprofen 600 mg tablet 2021-04 00:00: 00 11-05 00:00 :00 No [id number] 600mg Take 1 tablet by mouth every 6 (six) hours as needed for Pain (scale 4-6) or Alternate with Julian for pain scale 1-3. [facility] ondansetron 4 mg disintegrat ing tablet 2021-04 00:00: 00 11-05 00:00 :00 No [id number] 4mg Take 1 tablet by mouth every 12 (twelve) hours as needed for Nausea and Vomiting (N/V). [facility] HYDROcodone -acetaminop hen 5-325 mg tablet 2021-04 00:00: 00 03-03 05:59 :00 No [id number] 1{tbl} Take 1 tablet by mouth every 6 (six) hours as needed for Pain (scale 7-10) for up to 7 days. Indication s: acute pain [facility] bromphenira mine-pseudo ephedrine-D M (BROMFED DM) 2-30-10 mg/5 mL syrup 2021-04 00:00: 00 03-01 05:59 :00 No [id number] 10mL Take 10 mL by mouth 4 (four) times daily as needed for Congestion /Allergies or Cough for up to 12 days. [facility] azithromyci n (ZITHROMAX Z-AMADO) 250 mg tablet 2021-04 00:00: 00 02-22 05:59 :00 No [id number] 250mg Z-Amado = 500 mg day 1, then 250 mg days 2 to 5. [facility] lidocaine 2% viscous 2 % solution 10-09 00:00: 00 03-25 00:00 :00 No [id number] 15mL Take 15 mL by mouth every 4 (four) hours as needed for Oral mucosal pain. [facility] amoxicillin -clavulanat e 400-57 mg/5 mL suspension 10-09 00:00: 00 10-20 04:59 :00 No [id number] 400mg Take 5 mL by mouth 2 (two) times daily for 10 days. [facility] hydrOXYchlo roQUINE 200 mg tablet 10-09 00:00: 00 10-15 04:59 :00 No [id number] 200mg Take 1 tablet by mouth 2 (two) times daily for 5 days. [facility] Etonogestre l (NEXPLANON) 68 mg implant 10-07 09:20: 51 Yes 68mg 68 mg by Subdermal route once now. [facility] bromphenira mine-pseudo ephedrine-D M (BROMFED DM) 2-30-10 mg/5 mL syrup 10-07 00:00: 00 03-25 00:00 :00 No [id number] 5mL Take 5 mL by mouth 3 (three) times daily as needed for Congestion /Allergies or Cough. [facility] amoxicillin -clavulanat e (AUGMENTIN) 875-125 mg per tablet 10-07 00:00: 00 10-09 00:00 :00 No [id number] 1{tbl} Take 1 tablet by mouth 2 (two) times daily. [facility] omeprazole 40 mg capsule 04-25 00:00: 00 03-25 00:00 :00 No [id number] Take one tablet 30 mins before breakfast and again 30 minutes before dinner [facility] famotidine 40 mg tablet 04-25 00:00: 00 03-25 00:00 :00 No [id number] 40mg Take 1 tablet by mouth at bedtime. [facility] fluticasone propionate 50 mcg/actuati on nasal spray 04-25 00:00: 00 03-25 00:00 :00 No [id number] 2{spray } Use 2 Sprays in each nostril 2 (two) times daily. [facility] Immunizations Ordered Immunization Name Filled Immunization Name Date Status Comments Source Flu Injectable MDCK Pres-Free (FLUCELVAX) 2025-01-24 00:00:00 Completed Rubella 2023-12-06 14:28:00 Completed [facility] TD, NOS 2023-12-06 14:28:00 Completed [facility] TDAP (ADACEL) VACCINE 2023-12-06 14:28:00 Completed [facility] MMR 2023-12-06 14:28:00 Completed [facility] Influenza Virus Vaccine Quad IM, Preserv and ABX Free 6 MO-64 YRS (FLUCELVAX) 2023-12-06 14:28:00 Completed [facility] SARS-COV-2 COVID-19 VACCINE - (MODERNA) 2023-12-06 14:28:00 Completed [facility] HEP B, Adult Dosage 2023-12-06 14:28:00 Completed [facility] HEP B, Adult Dosage 2023-12-06 14:28:00 Completed [facility] Influenza Virus Vaccine 2023-12-06 14:28:00 Completed [facility] Rho (d) Immune Globulin 2023-12-06 14:28:00 Completed [facility] Rubella 2023-09-27 09:45:00 Completed [facility] TD, NOS 2023-09-27 09:45:00 Completed [facility] MMR 2023-09-27 09:45:00 Completed [facility] Influenza Virus Vaccine Quad IM, Preserv and ABX Free 6 MO-64 YRS (FLUCELVAX) 2023-09-27 09:45:00 Completed [facility] HEP B, Adult Dosage 2023-09-27 09:45:00 Completed [facility] Influenza Virus Vaccine 2023-09-27 09:45:00 Completed [facility] Rho (d) Immune Globulin 2023-09-27 09:45:00 Completed [facility] TDAP (ADACEL) VACCINE 2023-09-27 09:45:00 Completed [facility] SARS-COV-2 COVID-19 VACCINE - (MODERNA) 2023-09-27 09:45:00 Completed [facility] HEP B, Adult Dosage 2023-09-27 09:45:00 Completed [facility] Rubella 2023-09-16 09:00:00 Completed [facility] TD, NOS 2023-09-16 09:00:00 Completed [facility] TDAP (ADACEL) VACCINE 2023-09-16 09:00:00 Completed [facility] MMR 2023-09-16 09:00:00 Completed [facility] Influenza Virus Vaccine Quad IM, Preserv and ABX Free 6 MO-64 YRS (FLUCELVAX) 2023-09-16 09:00:00 Completed [facility] SARS-COV-2 COVID-19 VACCINE - (MODERNA) 2023-09-16 09:00:00 Completed [facility] HEP B, Adult Dosage 2023-09-16 09:00:00 Completed [facility] HEP B, Adult Dosage 2023-09-16 09:00:00 Completed [facility] Influenza Virus Vaccine 2023-09-16 09:00:00 Completed [facility] Rubella 2023-09-15 00:00:00 Completed [facility] TD, NOS 2023-09-15 00:00:00 Completed [facility] TDAP (ADACEL) VACCINE 2023-09-15 00:00:00 Completed [facility] MMR 2023-09-15 00:00:00 Completed [facility] Influenza Virus Vaccine Quad IM, Preserv and ABX Free 6 MO-64 YRS (FLUCELVAX) 2023-09-15 00:00:00 Completed [facility] SARS-COV-2 COVID-19 VACCINE - (MODERNA) 2023-09-15 00:00:00 Completed [facility] HEP B, Adult Dosage 2023-09-15 00:00:00 Completed [facility] HEP B, Adult Dosage 2023-09-15 00:00:00 Completed [facility] Influenza Virus Vaccine 2023-09-15 00:00:00 Completed [facility] Rubella 2023-09-12 00:00:00 Completed [facility] TD, NOS 2023-09-12 00:00:00 Completed [facility] TDAP (ADACEL) VACCINE 2023-09-12 00:00:00 Completed [facility] MMR 2023-09-12 00:00:00 Completed [facility] Influenza Virus Vaccine Quad IM, Preserv and ABX Free 6 MO-64 YRS (FLUCELVAX) 2023-09-12 00:00:00 Completed [facility] SARS-COV-2 COVID-19 VACCINE - (MODERNA) 2023-09-12 00:00:00 Completed [facility] HEP B, Adult Dosage 2023-09-12 00:00:00 Completed [facility] HEP B, Adult Dosage 2023-09-12 00:00:00 Completed [facility] Influenza Virus Vaccine 2023-09-12 00:00:00 Completed [facility] Rubella 2023-08-02 09:30:00 Completed [facility] TD, NOS 2023-08-02 09:30:00 Completed [facility] MMR 2023-08-02 09:30:00 Completed [facility] Influenza Virus Vaccine Quad IM, Preserv and ABX Free 6 MO-64 YRS (FLUCELVAX) 2023-08-02 09:30:00 Completed [facility] HEP B, Adult Dosage 2023-08-02 09:30:00 Completed [facility] Influenza Virus Vaccine 2023-08-02 09:30:00 Completed [facility] TDAP (ADACEL) VACCINE 2023-08-02 09:30:00 Completed [facility] SARS-COV-2 COVID-19 VACCINE - (MODERNA) 2023-08-02 09:30:00 Completed [facility] HEP B, Adult Dosage 2023-08-02 09:30:00 Completed [facility] Rubella 2023-08-02 09:00:00 Completed [facility] TD, NOS 2023-08-02 09:00:00 Completed [facility] TDAP (ADACEL) VACCINE 2023-08-02 09:00:00 Completed [facility] MMR 2023-08-02 09:00:00 Completed [facility] Influenza Virus Vaccine Quad IM, Preserv and ABX Free 6 MO-64 YRS (FLUCELVAX) 2023-08-02 09:00:00 Completed [facility] SARS-COV-2 COVID-19 VACCINE - (MODERNA) 2023-08-02 09:00:00 Completed [facility] HEP B, Adult Dosage 2023-08-02 09:00:00 Completed [facility] HEP B, Adult Dosage 2023-08-02 09:00:00 Completed [facility] Influenza Virus Vaccine 2023-08-02 09:00:00 Completed [facility] HEP B, Adult Dosage 2023-08-02 00:00:00 Completed [facility] Rubella 2023-07-25 00:00:00 Completed [facility] TD, NOS 2023-07-25 00:00:00 Completed [facility] TDAP (ADACEL) VACCINE 2023-07-25 00:00:00 Completed [facility] [place] [facility] 2023-[facility]-25 00:00:00 Completed [facility] Influenza Virus Vaccine Quad IM, Preserv and ABX Free 6 MO-64 YRS (FLUCELVAX) 2023-07-25 00:00:00 Completed [facility] SARS-COV-2 COVID-19 VACCINE - (MODERNA) 2023-07-25 00:00:00 Completed [facility] HEP B, Adult Dosage 2023-07-25 00:00:00 Completed [facility] HEP B, Adult Dosage 2023-07-25 00:00:00 Completed [facility] HEP B, Adult Dosage 2023-06-17 10:00:00 Completed [facility] HEP B, Adult Dosage 2023-06-17 10:00:00 Completed [facility] TDAP (ADACEL) VACCINE 2023-06-17 10:00:00 Completed [facility] SARS-COV-2 COVID-19 VACCINE - (MODERNA) 2023-06-17 10:00:00 Completed [facility] Rubella 2023-06-17 10:00:00 Completed [facility] TD, NOS 2023-06-17 10:00:00 Completed [facility] MMR 2023-06-17 10:00:00 Completed [facility] Influenza Virus Vaccine Quad IM, Preserv and ABX Free 6 MO-64 YRS (FLUCELVAX) 2023-06-17 10:00:00 Completed [facility] Rubella 2023-06-17 00:00:00 Completed [facility] TD, NOS 2023-06-17 00:00:00 Completed [facility] TDAP (ADACEL) VACCINE 2023-06-17 00:00:00 Completed [facility] MMR 2023-06-17 00:00:00 Completed [facility] Influenza Virus Vaccine Quad IM, Preserv and ABX Free 6 MO-64 YRS (FLUCELVAX) 2023-06-17 00:00:00 Completed [facility] SARS-COV-2 COVID-19 VACCINE - (MODERNA) 2023-06-17 00:00:00 Completed [facility] HEP B, Adult Dosage 2023-06-17 00:00:00 Completed [facility] HEP B, Adult Dosage 2023-06-17 00:00:00 Completed [facility] Rubella 2023-01-04 10:45:00 Completed [facility] TD, NOS 2023-01-04 10:45:00 Completed [facility] TDAP (ADACEL) VACCINE 2023-01-04 10:45:00 Completed [facility] MMR 2023-01-04 10:45:00 Completed [facility] Influenza Virus Vaccine Quad IM, Preserv and ABX Free 6 MO-64 YRS (FLUCELVAX) 2023-01-04 10:45:00 Completed [facility] SARS-COV-2 COVID-19 VACCINE - (MODERNA) 2023-01-04 10:45:00 Completed [facility] HEP B, Adult Dosage 2023-01-04 10:45:00 Completed [facility] HEP B, Adult Dosage 2023-01-04 10:45:00 Completed [facility] Rubella 2023-01-04 08:30:00 Completed [facility] TD, NOS 2023-01-04 08:30:00 Completed [facility] MMR 2023-01-04 08:30:00 Completed [facility] Influenza Virus Vaccine Quad IM, Preserv and ABX Free 6 MO-64 YRS (FLUCELVAX) 2023-01-04 08:30:00 Completed [facility] SARS-COV-2 COVID-19 VACCINE - (MODERNA) 2023-01-04 08:30:00 Completed [facility] HEP B, Adult Dosage 2023-01-04 08:30:00 Completed [facility] HEP B, Adult Dosage 2023-01-04 08:30:00 Completed [facility] TDAP 2023-01-04 08:30:00 Completed [facility] HEP B, Adult Dosage 2022-11-30 00:00:00 Completed [facility] Rubella 2022-11-16 00:00:00 Completed [facility] TD, NOS 2022-11-16 00:00:00 Completed [facility] TDAP (ADACEL) VACCINE 2022-11-16 00:00:00 Completed [facility] MMR 2022-11-16 00:00:00 Completed [facility] Influenza Virus Vaccine Quad IM, Preserv and ABX Free 6 MO-64 YRS (FLUCELVAX) 2022-11-16 00:00:00 Completed [facility] SARS-COV-2 COVID-19 VACCINE - (MODERNA) 2022-11-16 00:00:00 Completed [facility] HEP B, Adult Dosage 2022-11-16 00:00:00 Completed [facility] HEP B, Adult Dosage 2022-10-28 00:00:00 Completed [facility] HEP B, Adult Dosage 2022-10-28 00:00:00 Completed [facility] HEP B, Adult Dosage 2022-10-28 00:00:00 Completed [facility] HEP B, Adult Dosage 2022-10-28 00:00:00 Completed [facility] HEP B, Adult Dosage 2022-10-28 00:00:00 Completed [facility] Influenza Virus Vaccine Quad IM, Preserv and ABX Free 6 MO-64 YRS 2022-03-09 00:00:00 Completed [facility] Influenza Virus Vaccine Quad IM, Preserv and ABX Free 6 MO-64 YRS 2022-03-09 00:00:00 Completed [facility] Influenza Virus Vaccine Quad IM, Preserv and ABX Free 6 MO-64 YRS 2022-03-09 00:00:00 Completed [facility] Influenza Virus Vaccine Quad IM, Preserv and ABX Free 6 MO-64 YRS 2022-03-09 00:00:00 Completed [facility] Influenza Virus Vaccine Quad IM, Preserv and ABX Free 6 MO-64 YRS 2022-03-09 00:00:00 Completed [facility] Influenza Virus Vaccine Quad IM, Preserv and ABX Free 6 MO-64 YRS 2022-03-09 00:00:00 Completed [facility] Influenza Virus Vaccine Quad IM, Preserv and ABX Free 6 MO-64 YRS 2022-03-09 00:00:00 Completed [facility] Influenza Virus Vaccine Quad IM, Preserv and ABX Free 6 MO-64 YRS 2022-03-09 00:00:00 Completed [facility] Influenza Virus Vaccine Quad IM, Preserv and ABX Free 6 MO-64 YRS 2022-03-09 00:00:00 Completed [facility] Influenza Virus Vaccine Quad IM, Preserv and ABX Free 6 MO-64 YRS 2022-03-09 00:00:00 Completed [facility] Influenza Virus Vaccine Quad IM, Preserv and ABX Free 6 MO-64 YRS 2022-03-09 00:00:00 Completed [facility] Influenza Virus Vaccine Quad IM, Preserv and ABX Free 6 MO-64 YRS 2022-03-09 00:00:00 Completed [facility] Influenza Virus Vaccine Quad IM, Preserv and ABX Free 6 MO-64 YRS 2022-03-09 00:00:00 Completed [facility] Influenza Virus Vaccine Quad IM, Preserv and ABX Free 6 MO-64 YRS 2022-03-09 00:00:00 Completed [facility] Influenza Virus Vaccine Quad IM, Preserv and ABX Free 6 MO-64 YRS 2022-03-09 00:00:00 Completed [facility] Influenza Virus Vaccine Quad IM, Preserv and ABX Free 6 MO-64 YRS 2022-03-09 00:00:00 Completed [facility] Influenza Virus Vaccine Quad IM, Preserv and ABX Free 6 MO-64 YRS 2022-03-09 00:00:00 Completed [facility] Influenza Virus Vaccine Quad IM, Preserv and ABX Free 6 MO-64 YRS 2022-03-09 00:00:00 Completed [facility] Influenza Virus Vaccine Quad IM, Preserv and ABX Free 6 MO-64 YRS 2022-03-09 00:00:00 Completed [facility] Influenza Virus Vaccine Quad IM, Preserv and ABX Free 6 MO-64 YRS 2022-03-09 00:00:00 Completed [facility] Influenza Virus Vaccine Quad IM, Preserv and ABX Free 6 MO-64 YRS 2022-03-09 00:00:00 Completed [facility] Influenza Virus Vaccine Quad IM, Preserv and ABX Free 6 MO-64 YRS 2022-03-09 00:00:00 Completed [facility] Influenza Virus Vaccine Quad IM, Preserv and ABX Free 6 MO-64 YRS 2022-03-09 00:00:00 Completed [facility] Influenza Virus Vaccine Quad IM, Preserv and ABX Free 6 MO-64 YRS 2022-03-09 00:00:00 Completed [facility] Influenza Virus Vaccine Quad IM, Preserv and ABX Free 6 MO-64 YRS 2022-03-09 00:00:00 Completed [facility] Influenza Virus Vaccine Quad IM, Preserv and ABX Free 6 MO-64 YRS 2022-03-09 00:00:00 Completed [facility] SARS-COV-2 COVID-19 VACCINE - (MODERNA) 2022-01-13 00:00:00 Completed [facility] SARS-COV-2 COVID-19 VACCINE - (MODERNA) 2022-01-13 00:00:00 Completed [facility] SARS-COV-2 COVID-19 VACCINE - (MODERNA) 2022-01-13 00:00:00 Completed [facility] SARS-COV-2 COVID-19 VACCINE - (MODERNA) 2022-01-13 00:00:00 Completed [facility] SARS-COV-2 COVID-19 VACCINE - (MODERNA) 2022-01-13 00:00:00 Completed [facility] SARS-COV-2 COVID-19 VACCINE - (MODERNA) 2022-01-13 00:00:00 Completed [facility] SARS-COV-2 COVID-19 VACCINE - (MODERNA) 2022-01-13 00:00:00 Completed [facility] SARS-COV-2 COVID-19 VACCINE - (MODERNA) 2022-01-13 00:00:00 Completed [facility] SARS-COV-2 COVID-19 VACCINE - (MODERNA) 2022-01-13 00:00:00 Completed [facility] SARS-COV-2 COVID-19 VACCINE - (MODERNA) 2022-01-13 00:00:00 Completed [facility] SARS-COV-2 COVID-19 VACCINE - (MODERNA) 2022-01-13 00:00:00 Completed [facility] SARS-COV-2 COVID-19 VACCINE - (MODERNA) 2022-01-13 00:00:00 Completed [facility] SARS-COV-2 COVID-19 VACCINE - (MODERNA) 2022-01-13 00:00:00 Completed [facility] SARS-COV-2 COVID-19 VACCINE - (MODERNA) 2022-01-13 00:00:00 Completed [facility] SARS-COV-2 COVID-19 VACCINE - (MODERNA) 2022-01-13 00:00:00 Completed [facility] SARS-COV-2 COVID-19 VACCINE - (MODERNA) 2022-01-13 00:00:00 Completed [facility] SARS-COV-2 COVID-19 VACCINE - (MODERNA) 2022-01-13 00:00:00 Completed [facility] SARS-COV-2 COVID-19 VACCINE - (MODERNA) 2022-01-13 00:00:00 Completed [facility] SARS-COV-2 COVID-19 VACCINE - (MODERNA) 2022-01-13 00:00:00 Completed [facility] SARS-COV-2 COVID-19 VACCINE - (MODERNA) 2022-01-13 00:00:00 Completed [facility] SARS-COV-2 COVID-19 VACCINE - (MODERNA) 2022-01-13 00:00:00 Completed [facility] SARS-COV-2 COVID-19 VACCINE - (MODERNA) 2022-01-13 00:00:00 Completed Rubella 2021-12-31 00:00:00 Completed [facility] TD, NOS 2021-12-31 00:00:00 Completed [facility] TDAP (ADACEL) VACCINE 2021-12-31 00:00:00 Completed [facility] MMR 2021-12-31 00:00:00 Completed [facility] SARS-COV-2 COVID-19 VACCINE - (MODERNA) 2021-12-31 00:00:00 Completed [facility] SARS-COV-2 COVID-19 VACCINE - (MODERNA) 2021-12-15 00:00:00 Completed [facility] SARS-COV-2 COVID-19 VACCINE - (MODERNA) 2021-12-15 00:00:00 Completed [facility] SARS-COV-2 COVID-19 VACCINE - (MODERNA) 2021-12-15 00:00:00 Completed [facility] SARS-COV-2 COVID-19 VACCINE - (MODERNA) 2021-12-15 00:00:00 Completed [facility] SARS-COV-2 COVID-19 VACCINE - (MODERNA) 2021-12-15 00:00:00 Completed [facility] SARS-COV-2 COVID-19 VACCINE - (MODERNA) 2021-12-15 00:00:00 Completed [facility] SARS-COV-2 COVID-19 VACCINE - (MODERNA) 2021-12-15 00:00:00 Completed [facility] SARS-COV-2 COVID-19 VACCINE - (MODERNA) 2021-12-15 00:00:00 Completed [facility] SARS-COV-2 COVID-19 VACCINE - (MODERNA) 2021-12-15 00:00:00 Completed [facility] SARS-COV-2 COVID-19 VACCINE - (MODERNA) 2021-12-15 00:00:00 Completed [facility] SARS-COV-2 COVID-19 VACCINE - (MODERNA) 2021-12-15 00:00:00 Completed [facility] SARS-COV-2 COVID-19 VACCINE - (MODERNA) 2021-12-15 00:00:00 Completed [facility] SARS-COV-2 COVID-19 VACCINE - (MODERNA) 2021-12-15 00:00:00 Completed [facility] SARS-COV-2 COVID-19 VACCINE - (MODERNA) 2021-12-15 00:00:00 Completed [facility] SARS-COV-2 COVID-19 VACCINE - (MODERNA) 2021-12-15 00:00:00 Completed [facility] SARS-COV-2 COVID-19 VACCINE - (MODERNA) 2021-12-15 00:00:00 Completed [facility] SARS-COV-2 COVID-19 VACCINE - (MODERNA) 2021-12-15 00:00:00 Completed [facility] SARS-COV-2 COVID-19 VACCINE - (MODERNA) 2021-12-15 00:00:00 Completed [facility] SARS-COV-2 COVID-19 VACCINE - (MODERNA) 2021-12-15 00:00:00 Completed [facility] SARS-COV-2 COVID-19 VACCINE - (MODERNA) 2021-12-15 00:00:00 Completed [facility] SARS-COV-2 COVID-19 VACCINE - (MODERNA) 2021-12-15 00:00:00 Completed [facility] Rubella 2021-03-20 00:00:00 Completed [facility] TD, NOS 2021-03-20 00:00:00 Completed [facility] TDAP (ADACEL) VACCINE 2021-03-20 00:00:00 Completed [facility] MMR 2021-03-20 00:00:00 Completed [facility] Rubella 2021-03-20 00:00:00 Completed [facility] TD, NOS 2021-03-20 00:00:00 Completed [facility] TDAP (ADACEL) VACCINE 2021-03-20 00:00:00 Completed [facility] MMR 2021-03-20 00:00:00 Completed [facility] Rubella 2021-03-19 00:00:00 Completed [facility] TD, NOS 2021-03-19 00:00:00 Completed [facility] TDAP (ADACEL) VACCINE 2021-03-19 00:00:00 Completed [facility] MMR 2021-03-19 00:00:00 Completed [facility] Rubella 2020-12-21 00:00:00 Completed [facility] TD, NOS 2020-12-21 00:00:00 Completed [facility] TDAP (ADACEL) VACCINE 2020-12-21 00:00:00 Completed [facility] MMR 2020-12-21 00:00:00 Completed [facility] Rubella 2019-10-19 00:00:00 Completed [facility] TD, NOS 2019-10-19 00:00:00 Completed [facility] TDAP (ADACEL) VACCINE 2019-10-19 00:00:00 Completed [facility] MMR 2019-10-19 00:00:00 Completed [facility] TDAP 2019-03-21 00:00:00 Completed [facility] TDAP 2019-03-21 00:00:00 Completed [facility] TDAP 2019-03-21 00:00:00 Completed [facility] TDAP 2019-03-21 00:00:00 Completed [facility] TDAP 2019-03-21 00:00:00 Completed [facility] TDAP 2019-03-21 00:00:00 Completed [facility] TDAP 2019-03-21 00:00:00 Completed [facility] TDAP 2019-03-21 00:00:00 Completed [facility] TDAP 2019-03-21 00:00:00 Completed [facility] TDAP 2019-03-21 00:00:00 Completed [facility] TDAP 2019-03-21 00:00:00 Completed [facility] TDAP 2019-03-21 00:00:00 Completed [facility] TDAP 2019-03-21 00:00:00 Completed [facility] TDAP 2019-03-21 00:00:00 Completed [facility] TDAP 2019-03-21 00:00:00 Completed [facility] TDAP 2019-03-21 00:00:00 Completed [facility] TDAP 2019-03-21 00:00:00 Completed [facility] TDAP 2019-03-21 00:00:00 Completed [facility] TDAP 2019-03-21 00:00:00 Completed [facility] TDAP 2019-03-21 00:00:00 Completed [facility] TDAP 2019-03-21 00:00:00 Completed [facility] TDAP 2019-03-21 00:00:00 Completed MMR 2016-07-14 00:00:00 Completed [facility] MMR 2016-07-14 00:00:00 Completed [facility] MMR 2016-07-14 00:00:00 Completed [facility] MMR 2016-07-14 00:00:00 Completed [facility] MMR 2016-07-14 00:00:00 Completed [facility] MMR 2016-07-14 00:00:00 Completed [facility] MMR 2016-07-14 00:00:00 Completed [facility] MMR 2016-07-14 00:00:00 Completed [facility] MMR 2016-07-14 00:00:00 Completed [facility] MMR 2016-07-14 00:00:00 Completed [facility] MMR 2016-07-14 00:00:00 Completed [facility] MMR 2016-07-14 00:00:00 Completed [facility] MMR 2016-07-14 00:00:00 Completed [facility] MMR 2016-07-14 00:00:00 Completed [facility] MMR 2016-07-14 00:00:00 Completed [facility] MMR 2016-07-14 00:00:00 Completed [facility] MMR 2016-07-14 00:00:00 Completed [facility] MMR 2016-07-14 00:00:00 Completed [facility] MMR 2016-07-14 00:00:00 Completed [facility] MMR 2016-07-14 00:00:00 Completed [facility] MMR 2016-07-14 00:00:00 Completed [facility] MMR 2016-07-14 00:00:00 Completed [facility] MMR 2016-07-14 00:00:00 Completed [facility] MMR 2016-07-14 00:00:00 Completed [facility] MMR 2016-07-14 00:00:00 Completed [facility] MMR 2016-07-14 00:00:00 Completed [facility] MMR 2016-07-14 00:00:00 Completed [facility] MMR 2016-07-14 00:00:00 Completed [facility] MMR 2016-07-14 00:00:00 Completed [facility] MMR 2016-07-14 00:00:00 Completed [facility] MMR 2016-07-14 00:00:00 Completed [facility] TDAP (ADACEL) VACCINE 2012-11-09 00:00:00 Completed [facility] TDAP (ADACEL) VACCINE 2012-11-09 00:00:00 Completed [facility] TDAP (ADACEL) VACCINE 2012-11-09 00:00:00 Completed [facility] TDAP (ADACEL) VACCINE 2012-11-09 00:00:00 Completed [facility] TDAP (ADACEL) VACCINE 2012-11-09 00:00:00 Completed [facility] TDAP (ADACEL) VACCINE 2012-11-09 00:00:00 Completed [facility] TDAP (ADACEL) VACCINE 2012-11-09 00:00:00 Completed [facility] TDAP (ADACEL) VACCINE 2012-11-09 00:00:00 Completed [facility] TDAP (ADACEL) VACCINE 2012-11-09 00:00:00 Completed [facility] TDAP (ADACEL) VACCINE 2012-11-09 00:00:00 Completed [facility] TDAP (ADACEL) VACCINE 2012-11-09 00:00:00 Completed [facility] TDAP (ADACEL) VACCINE 2012-11-09 00:00:00 Completed [facility] TDAP (ADACEL) VACCINE 2012-11-09 00:00:00 Completed [facility] TDAP (ADACEL) VACCINE 2012-11-09 00:00:00 Completed [facility] TDAP (ADACEL) VACCINE 2012-11-09 00:00:00 Completed [facility] TDAP (ADACEL) VACCINE 2012-11-09 00:00:00 Completed [facility] TDAP (ADACEL) VACCINE 2012-11-09 00:00:00 Completed [facility] TDAP (ADACEL) VACCINE 2012-11-09 00:00:00 Completed [facility] TDAP (ADACEL) VACCINE 2012-11-09 00:00:00 Completed [facility] TDAP (ADACEL) VACCINE 2012-11-09 00:00:00 Completed [facility] TDAP (ADACEL) VACCINE 2012-11-09 00:00:00 Completed [facility] TDAP (ADACEL) VACCINE 2012-11-09 00:00:00 Completed [facility] TDAP (ADACEL) VACCINE 2012-11-09 00:00:00 Completed [facility] TDAP (ADACEL) VACCINE 2012-11-09 00:00:00 Completed [facility] TDAP (ADACEL) VACCINE 2012-11-09 00:00:00 Completed [facility] TDAP (ADACEL) VACCINE 2012-11-09 00:00:00 Completed [facility] TDAP (ADACEL) VACCINE 2012-11-09 00:00:00 Completed [facility] TDAP (ADACEL) VACCINE 2012-11-09 00:00:00 Completed [facility] TDAP (ADACEL) VACCINE 2012-11-09 00:00:00 Completed [facility] TDAP (ADACEL) VACCINE 2012-11-09 00:00:00 Completed [facility] TDAP (ADACEL) VACCINE 2012-11-09 00:00:00 Completed [facility] HPV 2010-05-25 00:00:00 Completed [facility] HPV 2010-05-25 00:00:00 Completed [facility] HPV 2010-05-25 00:00:00 Completed [facility] HPV 2010-05-25 00:00:00 Completed HPV 2010-05-25 00:00:00 Completed [facility] HPV 2010-05-25 00:00:00 Completed [facility] HPV 2010-02-24 00[facility]00:00 Completed [facility] HPV 2010-02-24 00:00:00 Completed [facility] HPV 2010-02-24 00:00:00 Completed [facility] HPV 2010-02-24 00:00:00 Completed HPV 2010-02-24 00:00:00 Completed [facility] HPV 2010-02-24 00:00:00 Completed [facility] [place] 2009-11-18 00:00:00 Completed [facility] [place] 2009-11-18 00:00:00 Completed [facility] [place] 2009-11-18 00:00:00 Completed [facility] [place] 2009-11-18 00:00:00 Completed [facility] HPV 2009-11-18 00:00:00 Completed [facility] [place] 2009-11-18 00:00:00 Completed [facility] [place] 2009-11-18 00:00:00 Completed [facility] [place] 2009-11-18 00:00:00 Completed [facility] [place] 2009-11-18 00:00:00 Completed [facility] [place] 2009-11-18 00:00:00 Completed [facility] [place] 2009-11-18 00:00:00 Completed [facility] [place] 2009-11-18 00:00:00 Completed [facility] HPV 2009-11-18 00:00:00 Completed [facility] [place] 2009-11-18 00:00:00 Completed [facility] [place] 2009-11-18 00:00:00 Completed [facility] [place] 2009-11-18 00:00:00 Completed [facility] [place] 2009-11-18 00:00:00 Completed [facility] [place] 2009-11-18 00:00:00 Completed [facility] [place] 2009-11-18 00:00:00 Completed [facility] [place] 2009-11-18 00:00:00 Completed [facility] [place] 2009-11-18 00:00:00 Completed [facility] [place] 2009-11-18 00:00:00 Completed [facility] [place] 2009-11-18 00:00:00 Completed [facility] HPV 2009-11-18 00:00:00 Completed [facility] [place] 2009-11-18 00:00:00 Completed [facility] HPV 2009-11-18 00:00:00 Completed [facility] HPV 2009-11-18 00:00:00 Completed [facility] [place] 2009-11-18 00:00:00 Completed [facility] [place] 2009-11-18 00:00:00 Completed [facility] [place] 2009-11-18 00:00:00 Completed [facility] [place] 2009-11-18 00:00:00 Completed [facility] [place] 2009-11-18 00:00:00 Completed [facility] [place] 2009-11-18 00:00:00 Completed [facility] HPV 2009-11-18 00:00:00 Completed [facility] [place] 2009-11-18 00:00:00 Completed [facility] [place] 2009-11-18 00:00:00 Completed [facility] [place] 2009-11-18 00:00:00 Completed [facility] Td 2007-04-11 00:00:00 Completed [facility] TD, NOS 2007-04-11 00:00:00 Completed [facility] TD, NOS 2007-04-11 00:00:00 Completed [facility] TD, NOS 2007-04-11 00:00:00 Completed [facility] TD, NOS 2007-04-11 00:00:00 Completed [facility] TD, NOS 2007-04-11 00:00:00 Completed [facility] TD, NOS 2007-04-11 00:00:00 Completed [facility] TD, NOS 2007-04-11 00:00:00 Completed [facility] TD, NOS 2007-04-11 00:00:00 Completed [facility] TD, NOS 2007-04-11 00:00:00 Completed [facility] TD, NOS 2007-04-11 00:00:00 Completed [facility] TD, NOS 2007-04-11 00:00:00 Completed [facility] TD, NOS 2007-04-11 00:00:00 Completed [facility] TD, NOS 2007-04-11 00:00:00 Completed [facility] TD, NOS 2007-04-11 00:00:00 Completed [facility] TD, NOS 2007-04-11 00:00:00 Completed [facility] TD, NOS 2007-04-11 00:00:00 Completed [facility] TD, NOS 2007-04-11 00:00:00 Completed [facility] TD, NOS 2007-04-11 00:00:00 Completed [facility] TD, NOS 2007-04-11 00:00:00 Completed [facility] TD, NOS 2007-04-11 00:00:00 Completed [facility] TD, NOS 2007-04-11 00:00:00 Completed [facility] Td 2007-04-11 00:00:00 Completed [facility] Td 2007-04-11 00:00:00 Completed [facility] Td 2007-04-11 00:00:00 Completed [facility] Td 2007-04-11 00:00:00 Completed [facility] Td 2007-04-11 00:00:00 Completed [facility] Td 2007-04-11 00:00:00 Completed [facility] Td 2007-04-11 00:00:00 Completed [facility] Td 2007-04-11 00:00:00 Completed [facility] Td 2007-04-11 00:00:00 Completed [facility] Vital Signs Vital Name Observation Time Observation Value Comments S ource Systolic blood pressure 2024-08-30 13:26:00 108 mm[Hg] [facility] Diastolic blood pressure 2024-08-30 13:26:00 73 mm[Hg] [facility] Heart rate 2024-08-30 13:26:00 77 /min [facility] Body temperature 2024-08-30 13:26:00 37.17 Deborah [facility] Body height 2024-08-30 13:26:00 157.5 cm [facility] Body weight 2024-08-30 13:26:00 97.705 kg [facility] BMI 2024-08-30 13:26:00 39.40 kg/m2 [facility] Oxygen saturation in Arterial blood by Pulse oximetry 2024-08-30 13:26:00 98 /min [facility] Systolic blood pressure 2024-08-20 14:45:00 108 mm[Hg] [facility] Diastolic blood pressure 2024-08-20 14:45:00 73 mm[Hg] [facility] Heart rate 2024-08-20 14:45:00 72 /min [facility] Body temperature 2024-08-20 14:45:00 36.67 Deborah [facility] Body height 2024-08-20 14:45:00 157.5 cm [facility] Body weight 2024-08-20 14:45:00 96.843 kg [facility] BMI 2024-08-20 14:45:00 39.05 kg/m2 [facility] Oxygen saturation in Arterial blood by Pulse oximetry 2024-08-20 14:45:00 98 /min [facility] Systolic blood pressure 2024-03-28 13:54:00 111 mm[Hg] [facility] Diastolic blood pressure 2024-03-28 13:54:00 77 mm[Hg] [facility] Heart rate 2024-03-28 13:54:00 71 /min [facility] Body temperature 2024-03-28 13:54:00 36.39 Deborah [facility] Body height 2024-03-28 13:54:00 157.5 cm [facility] Body weight 2024-03-28 13:54:00 94.62 kg [facility] BMI 2024-03-28 13:54:00 38.15 kg/m2 [facility] Oxygen saturation in Arterial blood by Pulse oximetry 2024-03-28 13:54:00 98 /min [facility] Systolic blood pressure 2023-12-06 19:27:00 129 mm[Hg] [facility] Diastolic blood pressure 2023-12-06 19:27:00 90 mm[Hg] [facility] Heart rate 2023-12-06 19:27:00 89 /min [facility] Body temperature 2023-12-06 19:27:00 36.72 Deborah [facility] Respiratory rate 2023-12-06 19:27:00 18 /min [facility] Body height 2023-12-06 19:27:00 157.5 cm [facility] Body weight 2023-12-06 19:27:00 90.719 kg [facility] BMI 2023-12-06 19:27:00 36.58 kg/m2 [facility] Oxygen saturation in Arterial blood by Pulse oximetry 2023-12-06 19:27:00 100 /min [facility] Systolic blood pressure 2023-09-27 14:43:00 108 mm[Hg] [facility] Diastolic blood pressure 2023-09-27 14:43:00 74 mm[Hg] [facility] Heart rate 2023-09-27 14:43:00 67 /[facility] Body temperature 2023-09-27 14:43:00 36.72 Deborah [facility] Respiratory rate 2023-09-27 14:43:00 17 /min [facility] Body height 2023-09-27 14:43:00 157.5 cm [facility] Body weight 2023-09-27 14:43:00 93.214 kg [facility] BMI 2023-09-27 14:43:00 37.59 kg/m2 [facility] Systolic blood pressure 2023-09-16 14:19:00 110 mm[Hg] [facility] Diastolic blood pressure 2023-09-16 14:19:00 80 mm[Hg] [facility] Heart rate 2023-09-16 14:19:00 89 /min [facility] Body temperature 2023-09-16 14:19:00 36.78 Deborah [facility] Respiratory rate 2023-09-16 14:19:00 16 /min [facility] Body weight 2023-09-16 14:19:00 92.579 kg [facility] BMI 2023-09-16 14:19:00 37.33 kg/m2 [facility] Oxygen saturation in Arterial blood by Pulse oximetry 2023-09-16 14:19:00 100 /min [facility] Systolic blood pressure 2023-08-02 13:32:00 111 mm[Hg] [facility] Diastolic blood pressure 2023-08-02 13:32:00 78 mm[Hg] [facility] Heart rate 2023-08-02 13:32:00 71 /[facility] 2023-08-02 13:32:00 36.22 Deborah [facility] Body height 2023-08-02 13:32:00 157.5 cm [facility] weight 2023-08-02 13:32:00 92.534 kg [facility] BMI 2023-08-02 13:32:00 37.31 kg/m2 [facility] Oxygen saturation in Arterial blood by Pulse oximetry 2023-08-02 13:32:00 99 /min [facility] Systolic blood pressure 2023-06-17 15:40:00 119 mm[Hg] [facility] Diastolic blood pressure 2023-06-17 15:40:00 79 mm[Hg] [facility] Heart rate 2023-06-17 15:40:00 78 /min [facility] Body temperature 2023-06-17 15:40:00 36.78 Deborah [facility] Respiratory rate 2023-06-17 15:40:00 20 /min [facility] Body height 2023-06-17 15:40:00 157.5 cm [facility] Body weight 2023-06-17 15:40:00 90.266 kg [facility] BMI 2023-06-17 15:40:00 36.40 kg/m2 [facility] Oxygen saturation in Arterial blood by Pulse oximetry 2023-06-17 15:40:00 98 /min [facility] Systolic blood pressure 2023-01-04 13:40:00 97 mm[Hg] [facility] Diastolic blood pressure 2023-01-04 13:40:00 67 mm[Hg] [facility] Heart rate 2023-01-04 13:40:00 71 /min [facility] Body temperature 2023-01-04 13:40:00 36.5 Deborah [facility] Body height 2023-01-04 13:40:00 157.5 cm [facility] Body weight 2023-01-04 13:40:00 88.542 kg [facility] BMI 2023-01-04 13:40:00 35.70 kg/m2 [facility] Oxygen saturation in Arterial blood by Pulse oximetry 2023-01-04 13:40:00 97 /min [facility] Systolic blood pressure 2022-11-05 17:13:00 108 mm[Hg] [facility] Diastolic blood pressure 2022-11-05 17:13:00 73 mm[Hg] [facility] Heart rate 2022-11-05 17:13:00 69 /min [facility] Body temperature 2022-11-05 17:13:00 36.22 Deborah [facility] Body height 2022-11-05 17:13:00 157.5 cm [facility] Body weight 2022-11-05 17:13:00 85.186 kg [facility] BMI 2022-11-05 17:13:00 34.35 kg/m2 [facility] Oxygen saturation in Arterial blood by Pulse oximetry 2022-11-05 17:13:00 99 /min [facility] Systolic blood pressure 2022-06-11 16:00:00 106 mm[Hg] [facility] Diastolic blood pressure 2022-06-11 16:00:00 71 mm[Hg] [facility] Heart rate 2022-06-11 16:00:00 76 /min [facility] Body temperature 2022-06-11 16:00:00 36.72 Deborah [facility] Respiratory rate 2022-06-11 16:00:00 18 /min [facility] Body height 2022-06-11 16:00:00 157.5 cm [facility] Body weight 2022-06-11 16:00:00 86.818 kg [facility] BMI 2022-06-11 16:00:00 35.01 kg/m2 [facility] Oxygen saturation in Arterial blood by Pulse oximetry 2022-06-11 16:00:00 99 /min [facility] Systolic blood pressure 2022-06-09 22:02:00 107 mm[Hg] [facility] Diastolic blood pressure 2022-06-09 22:02:00 69 mm[Hg] [facility] Heart rate 2022-06-09 22:02:00 81 /min [facility] Body temperature 2022-06-09 22:02:00 36.72 Deborah [facility] Respiratory rate 2022-06-09 22:02:00 18 /min [facility] Body height 2022-06-09 22:02:00 157.5 cm [facility] Body weight 2022-06-09 22:02:00 87.544 kg [facility] BMI 2022-06-09 22:02:00 35.30 kg/m2 [facility] Oxygen saturation in Arterial blood by Pulse oximetry 2022-06-09 22:02:00 99 /min [facility] Systolic blood pressure 2022-03-09 15:24:00 114 mm[Hg] [facility] Diastolic blood pressure 2022-03-09 15:24:00 76 mm[Hg] [facility] Heart rate 2022-03-09 15:24:00 68 /min [facility] Respiratory rate 2022-03-09 15:24:00 18 /min [facility] Body weight 2022-03-09 15:24:00 83.915 kg [facility] BMI 2022-03-09 15:24:00 33.84 kg/m2 [facility] Oxygen saturation in Arterial blood by Pulse oximetry 2022-03-09 15:24:00 99 /min [facility] Systolic blood pressure 2022-02-23 16:16:00 122 mm[Hg] [facility] Diastolic blood pressure 2022-02-23 16:16:00 73 mm[Hg] [facility] Heart rate 2022-02-23 16:14:00 80 /min [facility] Body temperature 2022-02-23 16:14:00 36.5 Deborah [facility] Respiratory rate 2022-02-23 16:14:00 16 /min [facility] Body weight 2022-02-23 16:14:00 79.379 kg [facility] BMI 2022-02-23 16:14:00 32.01 kg/m2 [facility] Oxygen saturation in Arterial blood by Pulse oximetry 2022-02-23 16:14:00 99 /min [facility] Systolic blood pressure 2022-02-16 18:06:00 111 mm[Hg] [facility] Diastolic blood pressure 2022-02-16 18:06:00 67 mm[Hg] [facility] Heart rate 2022-02-16 18:06:00 92 /min [facility] Body temperature 2022-02-16 18:06:00 36.72 Deborah [facility] Respiratory rate 2022-02-16 18:06:00 12 /min [facility] Body height 2022-02-16 18:06:00 157.5 cm [facility] Body weight 2022-02-16 18:06:00 83.507 kg [facility] BMI 2022-02-16 18:06:00 33.67 kg/m2 [facility] Oxygen saturation in Arterial blood by Pulse oximetry 2022-02-16 18:06:00 97 /min [facility] Procedures Procedure Date / Time Performed Performing Clinician Source FLU VACC ([id number]), 6 MO-64 YRS, .5ML, IM, TIV (FLUCELVAX) 2025-01-24 16:23:28 Jung Cole [facility] US HEAD NECK 2024-08-30 21:02:54 Brianna Chen [facility] FREE T4 2024-08-30 14:47:00 Brianna Chen [facility] THYROID STIMULATING HORMONE 2024-08-30 14:47:00 Brianna Chen [facility] COMP. METABOLIC PANEL (66694) 2024-08-30 14:47:00 Brianna Chen [facility] LIPID PANEL (31714)(TOTAL CHOLESTEROL, TRIGLYCERIDES, HDL) 2024-08-30 14:47:00 Brianna Chen [facility] CBC WITH DIFF 2024-08-30 14:47:00 Brianna Chen [facility] FREE T3 2024-08-30 14:47:00 Brianna Chen [facility] COMP. METABOLIC PANEL (62810) 2023-12-06 21:13:00 Bogdan [facility] SEDIMENTATION RATE 2023-12-06 21:13:00 Bogdan [facility] CBC WITH DIFF 2023-12-06 21:13:00 Tamika Mendez [facility] CT HEAD WO CONTRAST 2023-12-06 20:21:06 Bogdan [facility] POCT SARS-COV-2 ANTIGEN (BINAX NOW) 2023-09-16 14:24:00 Petrona Rasmussen [facility] HEPATITIS B VACCINE,ADULT,IM 2023-08-02 13:40:55 Jessa Persaud [facility] ASSIGNMENT OF BENEFITS 2023-06-17 15:35:43 Docto r Unassigned, Gilchrist [facility] FREE T4 2023-01-04 14:47:00 Mai Armas [facility] THYROID STIMULATING HORMONE 2023-01-04 14:47:00 Mai Armas [facility] COMP. METABOLIC PANEL (14758) 2023-01-04 14:47:00 Mai Armas [facility] LIPID PANEL (46617)(TOTAL CHOLESTEROL, TRIGLYCERIDES, HDL) 2023-01-04 14:47:00 Mai Armas [facility] CBC WITH DIFF 2023-01-04 14:47:00 Mai Armas [facility] GLYCOSYLATED HEMOGLOBIN (A1C) 2023-01-04 14:47:00 Mai Armas [facility] FREE T3 2023-01-04 14:47:00 Mai Armas Un [facility] HB ECG ROUTINE & RHYTHM STRIP 2023-01-04 14:02:03 Mai Armas [facility] HEPATITIS B VACCINE,ADULT,IM 2022-11-30 13:43:27 Doctor Unassigned, Gilchrist [facility] QUANTIFERON-TB ASSAY 2022-11-05 17:39:00 Marilee Persaud [facility] QFT NIL 2022-11-05 17:39:00 Jessa Persaud [facility] HEPATITIS B VACCINE,ADULT,IM 2022-10-28 13:20:27 Brianna Chen [facility] FREE T4 2022-06-11 14:47:00 Mai Armas Un [facility] THYROID STIMULATING HORMONE 2022-06-11 14:47:00 Mai Armas [facility] COMP. METABOLIC PANEL (98419) 2022-06-11 14:47:00 Mai Armas [facility] LIPID PANEL (59184)(TOTAL CHOLESTEROL, TRIGLYCERIDES, HDL) 2022-06-11 14:47:00 Mai Armas [facility] CBC WITH DIFF 2022-06-11 14:47:00 [facility] GLYCOSYL[facility]EMOGLOBIN (A1C) 2022-06-11 14:47:00 Mai Armas [facility] FREE T3 2022-06-11 14:47:00 Mai Armas Un [facility] ASSIGNMENT OF BENEFITS 2022-06-09 21:55:46 Docto r Unassigned, Gilchrist [facility] VITAMIN B12, LEVEL 2022-03-09 16:25:00 Erin Armas [facility] FLU VACC (), 6 MO-64 YRS, .5ML, IM, QUAD (FLUCELVAX) 2022-03-09 15:59:52 Mai Armas [facility] CT CERVICAL SPINE WO CONTRAST 2022-02-23 17:21:04 Pablo Osman [facility] CT HEAD WO CONTRAST 2022-02-23 17:21:04 Pablo Osman [facility] XR CHEST 1 VW 2022-02-23 16:57:59 [facility] ASSIGNMENT OF BENEFITS 2022-02-23 16:50:19 Docto r Unassigned, Gilchrist [facility] CONSENT/REFUSAL FOR DIAGNOSIS AND TREATMENT 2022-02-23 16:04:45 Doctor Unassigned, Gilchrist [facility] [id number] 2019-06-06 00:00:00 [facility] [id number] 2019-06-06 00:00:00 [facility] Encounters Start Date/Time End Date/Time Encounter Type Admission Type Attending [facility] Care Facility Care Department Encounter ID Source 2019-06-06 06:56:00 Inpatient Tita Samuel [facility] [id number] 2019-06-05 10:43:00 Inpatient Tita Samuel [facility] [id number] [facility] 2025-02-28 09:40:00 2025-02-28 09:40:00 Outpatient R [facility] [id number] [facility] 2025-02-13 08:00:00 2025-02-13 08:00:00 Outpatient [facility] [id number] [facility] 2025-01-24 11:15:00 2025-01-24 11:30:00 Imm/Inj Visit R Nurse-Lcc, Ehc Imm Jung Cole Vicente A [facility] [id number] [facility] 2025-01-14 00:00:00 2025-01-15 09:35:00 Telephone Apolinar Sparrow [facility] [id number] [id number] [id number] [facility] 2024-12-03 00:00:00 2025-01-05 18:25:46 Patient Secure Msg [facility] [id number] [id number] [id number] [id number] [facility] 2024-11-04 00:00:00 2024-12-08 18:27:31 Patient Secure Msg Brianna Chen [facility] [id number] [id number] [id number] [id number] [facility] 2024-12-07 14:00:00 2024-12-07 14:00:00 Outpatient R [facility] [id number] [facility] 2024-11-03 11:45:00 2024-11-03 12:00:00 Calender Tender Visit Bharat Perez, [facility] Main GiovannynoemyBrianna, [facility] Main [facility] [id number] [id number] [id number] [id number] [facility] 2024-10-31 00:00:00 2024-11-01 11:23:58 Telephone Brianna Chen [facility] [id number] [id number] [id number] [id number] [facility] 2024-09-06 00:00:00 2024-10-13 18:31:48 Patient Secure Msg Brianna Chen [facility] [id number] 350.1.13.10 [id number] [id number] [id number] [facility] 2024-09-03 00:00:00 2024-10-06 18:26:25 Patient [facility] 1.2.840.114 350.1.13.10 4.2.7.2.686 [id number] 044 [id number] [facility] 2024-09-03 00:00:00 2024-09-03 23:32:27 Patient [facility] 1.2.840.114 350.1.13.10 4.2.7.2.686 [id number] 044 [id number] [facility] 2024-08-30 00:00:00 2024-09-03 14:53:39 Telephone Brianna Chen [facility] 1.2.840.114 350.1.13.10 4.2.7.2.686 [id number] 044 [id number] [facility] 2024-08-30 00:00:00 2024-09-03 14:08:55 Patient Secure Brianna Perez [facility] 1.2.840.114 350.1.13.10 4.2.7.2.686 [id number] 044 [id number] [facility] 2024-08-30 15:19:58 2024-08-30 23:59:00 Hospital Encounter R Brianna Chen [facility] 1.2.840.114 350.1.13.10 4.2.7.2.686 [id number] [facility] 2024-08-30 10:15:00 2024-08-30 10:30:00 Calender Tender Visit R 2, Adc Lab Brianna Chen 2, [facility] 1.2.840.114 350.1.13.10 4.2.7.2.686 [id number] [facility] 2024-08-30 09:00:00 2024-08-30 09:28:31 Office Visit BRIANNA WALKER [facility] 1.2.840.114 350.1.13.10 4.2.7.2.686 [id number] 044 [id number] [facility] 2024-08-28 14:30:00 2024-08-28 14:30:00 Outpatient R FERNIE [facility] [id number] [facility] 2024-08-20 10:30:00 2024-08-20 12:02:01 Office Visit Mai Hoff [facility] 1..840.114 350.1.13.10 4.2.7.2.686 [id number] [id number] [facility] 2024-08-20 10:30:00 2024-08-20 10:30:00 Outpatient R [facility]I [facility] [id number] [facility] 2024-06-19 00:00:00 2024-06-19 23:59:00 Outpatient DARCI LONG [facility] [id number] [facility] 2024-06-19 10:40:00 2024-06-19 16:24:19 Outpatient R [facility]NA [facility] [id number] [facility] 2024-03-28 09:00:00 2024-03-28 09:00:00 Calender Tender Visit Pcp-Lab Anup Wei Pcp-Lab [facility] 1..840.114 350.1.13.10 4.2.7.2.686 [id number] [facility] 2024-03-28 08:40:00 2024-03-28 08:40:00 Office Visit Dinora Acevedo, [facility] 1..840.114 350.1.13.10 4.2.7.2.686 [id number] 044 [id number] [facility] 2024-03-28 08:40:00 2024-03-28 08:12:32 Outpatient [facility] [id number] [facility] 2023-12-06 14:28:00 2023-12-06 18:21:00 Emergency X TAMIKA MENDEZ TIMOTHY [facility] E[facility] [id number] [facility] 2023-12-06 14:28:00 2023-12-06 18:21:00 Emergency Tamika Mendez [facility] 1.840.114 350.1.13.10 4.2.7.2.686 [id number] [facility] 2023-09-27 09:45:00 2023-09-27 10:41:21 Outpatient R JOHANNA LE [facility] [id number] [facility] 2023-09-27 09:45:00 2023-09-27 10:41:21 Office Visit Johanna Le [facility] 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 1..840.114 350.1.13.10 4.2.7.2.686 [id number] [facility] 2023-09-15 00:00:00 2023-09-16 10:43:50 Telephone Jessa Persaud [facility] 1..840.114 350.1.13.10 4.2.7.2.686 [id number] 044 [id number] [facility] 2023-09-16 09:00:00 2023-09-16 09:46:16 Outpatient [facility] [id number] [facility] 2023-09-16 09:00:00 2023-09-16 09:20:00 Urgent Care Petrona Rasmussen Unknown, Attending [facility] 1.2.840.114 350.1.13.10 4.2.7.2.686 [id number] [facility] 2023-09-13 13:00:00 2023-09-13 13:00:00 Outpatient DEWAYNE [facility] [id number] [facility] 2023-09-12 00:00:00 2023-09-12 17:28:35 Telephone Alyx Aviles [facility] 1.2.840.114 350.1.13.10 4.2.7.2.686 [id number] [facility] 2023-08-02 09:30:00 2023-08-02 09:30:00 Office Visit Andrew Persaudssica [facility] 1.2.840.114 350.1.13.10 4.2.7.2.686 [id number] [id number] [facility] 2023-08-02 09:00:00 2023-08-02 09:01:13 Outpatient Bharat PERSAUD [facility] [id number] [facility] 2023-08-02 09:00:00 2023-08-02 09:01:13 Calender Tender Visit 2, [facility] 1.2.840.114 350.1.13.10 4.2.7.2.686 [id number] [facility] 2023-07-29 08:00:00 2023-07-29 08:00:00 Outpatient DEWAYNE [facility] [id number] [facility] 2023-07-25 00:00:00 2023-07-25 00:00:00 Telephone Brianna Chen [facility] 1.2.840.114 350.1.13.10 4.2.7.2.686 [id number] [id number] [facility] 2023-06-17 10:00:00 2023-06-17 10:33:07 Outpatient [facility] [id number] [facility] 2023-06-17 10:00:00 2023-06-17 10:33:07 [facility] 1.2840.114 350.1.13.10 4.2.7.2.686 [id number] [facility] 2023-06-17 00:00:00 2023-06-17 00:00:00 Orders Only Doctor Unassigned, Gilchrist [facility] 1.2840.114 350.1.13.10 4.2.7.2.686 [id number] [facility] 2023-01-28 08:30:00 2023-01-28 08:30:00 Outpatient Bharat [facility] [id number] [facility] 2023-01-14 08:00:00 2023-01-14 08:00:00 [facility] [id number] [facility] 2023-01-04 10:45:00 2023-01-04 11:00:00 Calender Tender Visit 2, Adc Lab Mai Armas [facility] 1.2.840.114 350.1.13.10 4.2.7.2.686 [id number] [facility] 2023-01-04 08:30:00 2023-01-04 09:27:52 Outpatient R MAI [facility] [id number] [facility] 2023-01-04 08:30:00 2023-01-04 09:27:52 Office Visit Mai Armas [facility] 1.2.840.114 350.1.13.10 4.2.7.2.686 [id number] 044 [id number] [facility] 2022-11-30 09:00:00 2022-11-30 09:00:00 Nurse Visit Nurse, Brianna Haque [facility] 1.2.840.114 350.1.13.10 4.2.7.2.686 [id number] [id number] [facility] 2022-11-30 09:00:00 2022-11-30 08:59:10 Outpatient R [facility]RIANNA [facility] [id number] [facility] 2022-11-16 00:00:00 2022-11-16 00:00:00 Patient Secure Msg Doctor Unassigned, Gilchrist [facility] 1.2.840.114 350.1.13.10 4.2.7.2.686 [id number] 044 [id number] [facility] 2022-11-09 00:00:00 2022-11-09 00:00:00 Telephone Jessa Persaud [facility] 1.2.840.114 350.1.13.10 4.2.7.2.686 [id number] 044 [id number] [facility] 2022-11-05 13:15:00 2022-11-05 13:30:00 Calender Tender Visit Pob, Adc Lab Main Jessa Persaud [facility] 1.2.840.114 350.1.13.10 4.2.7.2.686 [id number] [facility] 2022-11-05 13:15:00 2022-11-05 13:15:00 Outpatient R [facility]SA [facility] [id number] [facility] 2022-11-05 12:30:00 2022-11-05 12:30:00 Office Visit Jessa Persaud [facility] 1..840.114 350.1.13.10 4.2.7.2.686 [id number] [id number] [facility] 2022-10-28 09:00:00 2022-10-28 10:17:50 Outpatient R [facility]NA [facility] [id number] [facility] 2022-10-28 09:00:00 2022-10-28 10:17:50 Nurse Visit Nurse, Brianna Haque [facility] 1..840.114 350.1.13.10 4.2.7.2.686 [id number] [facility] 2022-10-27 13:00:00 2022-10-27 13:00:00 Outpatient BRIANNA WALKER [facility] [id number] [facility] 2022-10-26 00:00:00 2022-10-26 00:00:00 Telephone Brianna Chen [facility] 1..840.114 350.1.13.10 4.2.7.2.686 [id number] [facility] 2022-10-18 11:00:00 2022-10-18 11:36:45 Outpatient [facility]NA [facility] [id number] [facility] 2022-10-18 11:00:00 2022-10-18 11:15:00 Calender Tender Visit Lab, Brianna Denny [facility] 1..840.114 350.1.13.10 4.2.7.2.686 [id number] [facility] 2022-10-18 00:00:00 2022-10-18 00:00:00 Telephone Brianna Chen [facility] 1.2.840.114 350.1.13.10 4.2.7.2.686 [id number] [id number] [facility] 2022-09-29 00:00:00 2022-09-29 00:00:00 Telephone Brianna Chen [facility] 1.2.840.114 350.1.13.10 4.2.7.2.686 [id number] [id number] [facility] 2022-09-14 14:20:00 2022-09-14 14:20:00 Outpatient R [facility]ANNA [facility] [id number] [facility] 2022-09-03 00:00:00 2022-09-03 00:00:00 Telephone Brianna Chen [facility] 1.2.840.114 350.1.13.10 4.2.7.2.686 [id number] [id number] [facility] 2022-08-31 10:00:00 2022-08-31 10:00:00 Outpatient [facility]ANNA [facility] [id number] [facility] 2022-08-30 00:00:00 2022-08-30 00:00:00 Telephone Brianna Chen [facility] 1.2.840.114 350.1.13.10 4.2.7.2.686 [id number] [facility] 2022-08-25 00:00:00 2022-08-25 00:00:00 Telephone Brianna Chen [facility] 1.2.840.114 350.1.13.10 4.2.7.2.686 [id number] 044 [id number] [facility] 2022-08-19 00:00:00 2022-08-19 00:00:00 Telephone Mai Armas [facility] 1.2.840.114 350.1.13.10 4.2.7.2.686 [id number] 044 [id number] [facility] 2022-07-13 00:00:00 2022-07-13 00:00:00 Telephone Mai Armas [facility] 1.2.840.114 350.1.13.10 4.2.7.2.686 [id number] 044 [id number] [facility] 2022-07-09 00:00:00 2022-07-09 00:00:00 Telephone Mai Armas [facility] 1.2.840.114 350.1.13.10 4.2.7.2.686 [id number] 044 [id number] [facility] 2022-06-17 13:40:00 2022-06-17 13:40:00 Outpatient R [facility]NA [facility] [id number] [facility] 2022-06-17 00:00:00 2022-06-17 00:00:00 Telephone Brianna Chen [facility] 1.2.840.114 350.1.13.10 4.2.7.2.686 [id number] [id number] [facility] 2022-06-11 09:00:00 2022-06-11 11:01:28 Outpatient R [facility]ANNA [facility] [id number] [facility] 2022-06-11 09:00:00 2022-06-11 11:01:28 Office Visit Brianna Chen [facility] 1.2.840.114 350.1.13.10 4.2.7.2.686 [id number] [id number] [facility] 2022-06-11 08:45:00 2022-06-11 10:28:05 Calender Tender Visit 2, Adc Lab Bri[facility] 1.2.840.114 350.1.13.10 4.2.7.2.686 [id number] [facility] 2022-06-10 00:00:00 2022-06-10 00:00:00 Telephone Mai Armas [facility] 1.2.840.114 350.1.13.10 4.2.7.2.686 [id number] [id number] [facility] 2022-06-09 16:00:00 2022-06-09 16:49:49 Outpatient R [facility]I [facility] [id number] [facility] 2022-06-09 16:00:00 2022-06-09 16:49:49 Office Visit Mai Armas [facility] 1.2.840.114 350.1.13.10 4.2.7.2.686 [id number] [id number] [facility] 2022-06-09 00:00:00 2022-06-09 00:00:00 Orders Only Doctor Unassigned, Gilchrist [facility] 1.2.840.114 350.1.13.10 4.2.7.2.686 [id number] [facility] 2022-04-08 08:40:00 2022-04-08 08:40:00 Outpatient [facility] [id number] [facility] 2022-04-08 08:40:00 2022-04-08 08:40:00 Outpatient [facility] [id number] [facility] 2022-03-15 10:00:00 2022-03-15 10:00:00 Outpatient R MOISES ARMASTejSherrie [facility] [id number] [facility] 2022-03-15 00:00:00 2022-03-15 00:00:00 Patient Secure Msg Mai Arm[facility] 1.2.840.114 350.1.13.10 4.2.7.2.686 [id number] [id number] [facility] 2022-03-12 00:00:00 2022-03-12 00:00:00 Telephone Mai Armas [facility] 1.2.840.114 350.1.13.10 4.2.7.2.686 [id number] [facility] 2022-03-10 00:00:00 2022-03-10 00:00:00 Telephone Mai Armas [facility] 1.2.840.114 350.1.13.10 4.2.7.2.686 [id number] [facility] 2022-03-09 10:30:00 2022-03-09 10:45:00 Calender Tender Visit 2, Adc Lab Mai Armas [facility] 1.2.840.114 350.1.13.10 4.2.7.2.686 [id number] [facility] 2022-03-09 09:30:00 2022-03-09 10:14:33 Outpatient R MARY KAY ARAMSNOHA [facility] [id number] [facility] 2022-03-09 09:30:00 2022-03-09 10:14:33 Office Visit Moises Armashoang [facility] 1.2.840.114 350.1.13.10 4.2.7.2.686 [id number] [id number] [facility] 2022-02-24 16:00:00 2022-02-24 16:30:00 Office Visit [facility]el [facility] 1..840.114 350.1.13.10 4.2.7.2.686 [id number] [id number] [facility] 2022-02-24 16:00:00 2022-02-24 16:00:00 Outpatient R MAI [facility] [id number] [facility] 2022-02-23 10:17:00 2022-02-23 14:40:00 Emergency X PABLO OSMAN [facility] [id number] [facility] 2022-02-23 10:17:00 2022-02-23 14:40:00 Emergency VasutDelmint J [facility] 1.840.114 350.1.13.10 4.2.7.2.686 [id number] [facility] 2022-02-16 12:00:00 2022-02-16 12:20:00 Urgent Care Jacqui Avila Unknown, Attending [facility] 1..840.114 350.1.13.10 4.2.7.2.686 [id number] [facility] 2022-02-16 12:00:00 2022-02-16 12:00:00 Outpatient R [facility]I [facility] [id number] [facility] 2021-12-31 00:00:00 2021-12-31 00:00:00 Patient Secure Msg Doctor Unassigned, Gilchrist [facility] 1..840.114 350.1.13.10 4.2.7.2.686 [id number] [facility] 2021-11-13 09:30:00 2021-11-13 09:30:00 Outpatient R MAI ARMAS [facility] [id number] [facility] 2021-10-30 00:00:00 2021-10-30 00:00:00 Telephone Mosquera, Gloria Gracia [facility] 1.2.840.114 350.1.13.10 4.2.7.2.686 [id number] [facility] 2021-10-08 00:00:00 2021-10-08 00:00:00 Telephone Mosquera Gloria [facility] 1.2.840.114 350.1.13.10 4.2.7.2.686 [id number] [id number] [facility] 2021-10-07 10:45:00 2021-10-07 11:00:00 Calender Tender Visit 2, Adc Lab Mai Armas [facility] 1.2.840.114 350.1.13.10 4.2.7.2.686 [id number] [facility] 2021-10-07 10:45:00 2021-10-07 10:45:00 Outpatient R MAI [facility] [id number] [facility] 2021-10-07 09:30:00 2021-10-07 10:31:52 Office Visit Mai Armas [facility] 1.2.840.114 350.1.13.10 4.2.7.2.686 [id number] [id number] [facility] 2021-10-07 09:30:00 2021-10-07 10:31:52 Outpatient R MAI ARMAS [facility] [id number] [facility] 2021-07-15 10:00:00 2021-07-15 10:17:10 [facility] 1..840.114 350.1.13.10 4.2.7.2.686 [id number] [facility] 2021-07-15 10:00:00 2021-07-15 10:17:10 Outpatient R MAI ARMAS [facility] [id number] [facility] 2021-07-15 10:00:00 2021-07-15 10:00:00 Outpatient R MAI ARMAS [facility] [id number] [facility] 2021-06-01 13:00:00 2021-06-01 13:24:23 [facility] 1..840.114 350.1.13.10 4.2.7.2.686 [id number] [facility] 2021-06-01 13:00:00 2021-06-01 13:24:23 Outpatient R JAYNE [facility] [id number] [facility] 2021-06-01 13:00:00 2021-06-01 13:00:00 Outpatient R JAYNE [facility] [id number] [facility] 2021-06-01 00:00:00 2021-06-01 00:00:00 Orders Only Doctor Unassigned, Gilchrist [facility] 1..840.114 350.1.13.10 4.2.7.2.686 [id number] [facility] 2021-03-23 00:00:00 2021-03-23 00:00:00 Patient Secure Msg Brianna Chen [facility] 1.2.840.114 350.1.13.10 4.2.7.2.686 [id number] [id number] [facility] 2021-03-20 00:00:00 2021-03-20 00:00:00 Patient Secure Msg Doctor Unassigned, Gilchrist [facility] 1.2.840.114 350.1.13.10 4.2.7.2.686 [id number] [facility] 2021-03-20 00:00:00 2021-03-20 00:00:00 Patient Secure Msg Doctor Unassigned, Gilchrist [facility] 1.2.840.114 350.1.13.10 4.2.7.2.686 [id number] [facility] 2021-03-20 00:00:00 2021-03-20 00:00:00 Telephone Brianna Chen [facility] 1.2.840.114 350.1.13.10 4.2.7.2.686 [id number] 044 [id number] [facility] 2021-03-19 00:00:00 2021-03-19 00:00:00 Patient Secure Msg Brianna Chen [facility] 1.2.840.114 350.1.13.10 4.2.7.2.686 [id number] [facility] 2021-03-18 08:29:37 2021-03-18 23:59:00 Outpatient R [facility] [id number] [facility] 2021-03-18 08:29:37 2021-03-18 23:59:00 Outpatient R [facility] [id number] [facility] 2021-03-18 08:00:00 2021-03-18 23:59:00 Hospital Encounter Brianna Chen [facility] 1.20.114 350.1.13.10 4.2.7.2.686 [id number] [facility] 2021-03-17 00:00:00 2021-03-17 00:00:00 Telephone Ezio Mae [facility] 1.284.114 350.1.13.10 4.2.7.2.686 [id number] [facility] 2021-03-17 00:00:00 2021-03-17 00:00:00 Telephone Ezio Mae [facility] 1.84.114 350.1.13.10 4.2.7.2.686 [id number] [facility] 2021-03-12 09:45:00 2021-03-12 09:45:00 Outpatient R [facility] [id number] [facility] 2021-03-12 08:34:55 2021-03-12 08:49:55 Calender Tender Visit Pob, Adc Lab Main Brianna Chen [facility] 1.284.114 350.1.13.10 4.2.7.2.686 [id number] [facility] 2021-03-12 00:00:00 2021-03-12 00:00:00 Orders Only Doctor Unassigned, Gilchrist [facility] 1.2.114 350.1.13.10 4.2.7.2.686 [id number] [facility] 2021-03-11 14:40:00 2021-03-11 14:40:00 Outpatient R [facility] [id number] [facility] 2021-03-11 09:40:00 2021-03-11 11:52:48 Outpatient R [facility] [id number] [facility] 2021-03-11 07:49:46 2021-03-11 11:52:48 Telemedici ne Visit Brianna Chen [facility] 1..840.114 350.1.13.10 4.2.7.2.686 [id number] [facility] 2021-03-10 00:00:00 2021-03-10 00:00:00 Telephone Ezio Mae [facility] 1.84.114 350.1.13.10 4.2.7.2.686 [id number] [facility] 2021-03-06 00:00:00 2021-03-06 00:00:00 Patient Secure Gloria Santos [facility] 1..840.114 350.1.13.10 4.2.7.2.686 [id number] [facility] 2021-02-26 19:30:00 2021-02-26 19:30:00 Outpatient R MOSES MIRELES [facility] [id number] [facility] 2021-02-26 15:14:08 2021-02-26 17:44:08 Calender Tender Visit 1, [facility] Sleep Lab Bed Moses Mireles [facility] 1.84.114 350.1.13.10 4.2.7.2.686 [id number] [facility] 2021-02-26 00:00:00 2021-02-26 00:00:00 Orders Only Doctor Unassigned, Gilchrist [facility] 1..114 350.1.13.10 4.2.7.2.686 [id number] [facility] 2021-02-24 08:13:14 2021-02-24 08:28:14 Calender Tender Visit Pob, Adc Lab Main Gloria Mosquera [facility] 1.840.114 350.1.13.10 4.2.7.2.686 [id number] [facility] 2021-02-24 08:11:58 2021-02-24 08:26:58 Laboratory Only Only, Adc Test Moses Mireles [facility] 1.840.114 350.1.13.10 4.2.7.2.686 [id number] [facility] 2021-02-24 08:15:00 2021-02-24 08:15:00 Outpatient R GLORIA [facility] [id number] [facility] 2021-01-30 19:30:00 2021-01-30 19:30:00 Outpatient R MOSES MIRELES [facility] [id number] [facility] 2021-01-28 08:49:58 2021-01-28 09:04:58 Laboratory Only Only, Adc Test Fernie Hurtado [facility] 1.840.114 350.1.13.10 4.2.7.2.686 [id number] [facility] 2021-01-28 09:00:00 2021-01-28 09:00:00 Outpatient R [facility] [id number] [facility] 2020-12-23 19:30:00 2020-12-23 19:30:00 Outpatient R MOSES MIRELES [facility] [id number] [facility] 2020-12-21 00:00:2020-12-21 00:00:00 Patient Secure Msg Doctor Unassigned, Gilchrist [facility] 1..840.114 350.1.13.10 4.2.7.2.686 [id number] [facility] 2020-12-20 09:00:33 2020-12-20 09:15:33 Laboratory Only Only, Ang Db Test Unknown, Attending [facility] 1..840.114 350.1.13.10 4.2.7.2.686 [id number] [facility] 2020-12-20 09:10:00 2020-12-20 09:10:00 Outpatient R UNKNOWN, ATTENDING [facility] [id number] [facility] 2020-12-19 08:15:00 2020-12-19 08:15:00 Outpatient R [facility] [id number] [facility] 2020-11-28 10:00:00 2020-11-28 10:00:00 Outpatient EZIO DALY [facility] [id number] [facility] 2020-11-10 09:20:00 2020-11-10 09:20:00 Outpatient EZIO DALY [facility] [id number] [facility] 2020-10-14 12:00:00 2020-10-14 12:00:00 Outpatient BETHANY CRUZ [facility] [id number] [facility] 2020-09-09 13:00:00 2020-09-09 13:00:00 Outpatient BETHANY CRUZ [facility] [id number] [facility] 2020-08-08 12:30:00 2020-08-08 12:30:00 Outpatient GLORIA TURNER [facility] [id number] [facility] 2020-07-31 16:20:00 2020-07-31 16:20:00 Outpatient GLORIA TURNER [facility] [id number] [facility] 2020-06-27 10:00:00 2020-06-27 10:00:00 Outpatient R LEONIDAS PERRY [facility] [id number] [facility] 2020-06-04 00:00:00 2020-06-04 00:00:00 Telephone Gloria Mosquera [facility] 1.2.840.114 350.1.13.10 4.2.7.2.686 [id number] 2020-05-27 09:40:00 2020-05-27 09:40:00 Outpatient BRIANNA WALKER [facility] [id number] [facility] 2020-05-12 00:00:00 2020-05-12 00:00:00 Telephone Gloria Mosquera [facility] 1.2.840.114 350.1.13.10 4.2.7.2.686 [id number] 2020-05-10 09:00:00 2020-05-10 09:00:00 Outpatient [facility] [id number] [facility] 2020-04-25 10:15:00 2020-04-25 10:15:00 Outpatient R LEONIDAS PERRY [facility] [id number] [facility] 2020-04-24 15:40:00 2020-04-24 15:40:00 Outpatient R GLORIA MOSQUERA [facility] [id number] [facility] 2020-04-24 08:10:06 2020-04-24 08:30:06 Telemedici ne Visit Gloria Mosquera [facility] [id number] 2020-03-17 17:32:07 2020-03-17 23:59:00 Outpatient R BETHANY ROWAN [facility] [id number] [facility] 2020-03-11 19:46:00 2020-03-11 23:36:00 Emergency X BROOKLYNN EDEN [facility] ERT [id number] [facility] 2020-03-11 09:20:00 2020-03-11 09:20:00 Outpatient [facility] [id number] [facility] 2020-01-22 08:00:00 2020-01-22 08:00:00 Outpatient R BRIANNA CHEN [facility] [id number] [facility] 2020-01-09 08:40:00 2020-01-09 08:40:00 Outpatient R BRIANNA CHEN [facility] [id number] [facility] 2019-12-26 09:40:00 2019-12-26 09:40:00 Outpatient R BRIANNA CHEN [facility] [id number] [facility] 2019-12-22 10:00:00 2019-12-22 10:00:00 Outpatient R [facility] [id number] [facility] 2019-10-19 00:00:00 2019-10-19 00:00:00 Patient Secure Msg Doctor Unassigned, [place] [facility] [id number] [facility] 2019-10-17 10:00:00 2019-10-17 10:00:00 Outpatient R [facility] [id number] [facility] 2019-10-09 10:40:00 2019-10-09 10:40:00 Outpatient R [facility] [id number] [facility] 2019-09-07 08:00:00 2019-09-07 08:00:00 Outpatient R MARIELLA KIDD [facility] [id number] [facility] 2019-09-06 09:30:00 2019-09-06 09:30:00 Outpatient R MARIELLA KIDD [facility] [id number] [facility] Results Test Description Test Time Test Comments Results Resul t Comments Source US Head neck 2024-08-10 2 21:26:34 EXAM: US HEAD NECK HISTORY: 28 years-old Female; thyroid colloid cysts Thyroid colloid cysts TECHNIQUE: Ultrasound examination of the thyroid and adjacent soft tissueswas performed. COMPARISON: 03/18/2021 FINDINGS: The thyroid gland is normal in size with homogeneous echotexture and normal color Doppler flow.The right lobe measures 4.5 x 1.5 x 1.6 cm with a volume of 5.7 mL. The left lobe measures 3.8 x 1.2 x 1.9 cm with a volume of 4.4 mL. The isthmus measures 0.2 cm. Multiple bilateral subcentimeter colloid cysts are redemonstrated. Nosuspicious nodules are identified. LYMPH NODES: No enlarged or morphologically suspicious lymph nodes areseen.. [facility] [id number] 16:55:36* Test Item Value Reference Range Interpretation Comme nts FREE T4 (test code = 9091384224) 1.03 ng/dL 0.78-2.20 Lab Interpretation (test cod e = 39082-2) Normal [facility] [id number] 16:55:15* Test Item Value Reference Range Interpretation Comme nts FREE T3 (test code = 3233064148) 3.3 pg/mL 2.77-5.27 Lab Interpretation (test cod e = 98280-2) Normal [facility] (10712)2024-08-30 16:39:11* Test Item Value Reference Range Interpretation Comme nts NA (test code = 9068146522) 138 mmol/L 135-145 K (test code = 4085680375) 4.4 mmol/L 3.5-5.0 CL (test code = 4958869921) 105 mmol/L 98-108 CO2 TOTAL (test code = 7837687397) 24 mmol/L 23-31 AGAP (test code = 9748802002) 9 2-16 BUN (test code = 4485569383) 9 mg/dL 7-23 GLUCOSE (test code = 9646790859) 91 mg/dL 70-110 CREATININE (test code = 2160-0) 0.66 mg/dL 0.50-1.04 TOTAL BILI (test code = 3160866099) 0.5 mg/dL 0.1-1.1 CALCIUM (test code = 7830369123) 9.6 mg/dL 8.6-10.6 T PROTEIN (test code = 1526055863) 7.9 g/dL 6.3-8.2 ALBUMIN (test code = 3921594061) 4.5 g/dL 3.5-5.0 ALK PHOS (test code = 1037351737) 58 U/L 34-122 ALTv (test code = 1742-6) 19 U/L 5-35 AST(SGOT) (test code = 4915602718) 21 U/L 13-40 eGFR (test code = 47746-2) 121.2 mL/min/1.73m2 CKD-EPI eGFR (20 21). Assuming creatinine has been stable day-to-day for at least three months, the eGFR indicates Category G1 (>= 90 mL/min/1.73 m2) [facility] (33541)(Total Cholesterol, Triglycerides, HDL)2024-08-30 16:39:11* Test Item Value Reference Range Interpretation Comme nts CHOL (test code = 3326594298) 142 mg/dL 120-200 HDL (test code = 9003388634) 62 mg/dL >=50 HDLC RATIO (test code = 2111047864) 2.3 <=4.5 TRIG (test code = 3611241281) 68 mg/dL 30-170 LDL CHOL (test code = 72727-3) 66 mg/dL <=160 VLDL (test code = 5476682372) 14 mg/dL 5-60 Lab Interpretation (test cod e = 10614-4) Normal [facility] with [id number] 16:00:08* Test Item Value Reference Range Interpretation Comme nts WBC (test code = 6690-2) 7.72 4.30-11.10 RBC (test code = 789-8) 4.49 3.93-5.25 HGB (test code = 718-7) 13 g/dL 11.6-15.0 HCT (test code = 4544-3) 38.5 % 35.7-45.2 MCV (test code = 787-2) 85.7 fL 80.6-95.5 MCH (test code = 785-6) 29 pg 25.9-32.8 MCHC (test code = 786-4) 33.8 g/dL 31.6-35.1 RDW-SD (test code = 50218-6) 39.8 fL 39.0-49.9 RDW-CV (test code = 788-0) 12.9 % 12.0-15.5 PLT (test code = 777-3) 308 166-358 MPV (test code = 36784-8) 10.6 fL 9.5-12.9 NRBC/100 WBC (test code = 7884443152) 0 0.0-10.0 NRBC x10^3 (test code = 0291014857) See_Comment [Automated messa ge] The system which generated this result transmitted reference range: 10*3/?L. The reference range was not used to interpret this result as normal/abnormal. GRAN MAT (NEUT) % (test code = 770-8) 66.4 % IMM GRAN % (test code = 9656055972) 0.4 % LYMPH % (test code = 736-9) 27.1 % MONO % (test code = 5905-5) 4 % EOS % (test code = 713-8) 1.6 % BASO % (test code = 706-2) 0.5 % GRAN MAT x10^3(ANC) (test code = 9966926399) 5.13 10*3/uL 1.88-7.09 IMM GRAN x10^3 (test code = 4904645856) 0.03 10*3/uL 0.00-0.06 LYMPH x10^3 (test code = 731-0) 2.09 10*3/uL 1.32-3.29 MONO x10^3 (test code = 742-7) 0.31 10*3/uL 0.33-0.92 L EOS x10^3 (test code = 711-2) 0.12 10*3/uL 0.03-0.39 BASO x10^3 (test code = 704-7) 0.04 10*3/uL 0.01-0.07 Lab Interpretation (test code = 07552-3) [facility] HEAD WO [id number] 20:28:13CT HEAD WO CONTRAST HISTORY: Neuro deficit, acute, stroke suspected COMPARISON: Prior head imaging.TECHNIQUE: Nonenhanced CT scan of the head was done in multiple dimensions. FINDINGS: The ventricles and cerebral sulci are normal in caliber and configuration.No hydrocephalus, midline shift or pathological extra-axial fluidcollection is present. The basal cisterns are unremarkable. There is no acu te intracranial hemorrhage or significant mass effect. Noparenchymal attenuation abnormality. The reddy-white matter differentiationis preserved. The mastoid air cells and visualized paranasal air sinuses are clear. Thecalvarium and central skull base are unremarkable.[facility] SARS-COV-2 ANTIGEN (BINAX NOW)2023-09-16 14:25:00* Test Item Value Reference Range Interpretation Comme nts POCT SARS-COV-2 ANTIGEN (matt t code = 79326-0) Positive Not Detected A On board controls acceptable with C Line (test code = 3574) Yes Lab Interpretation (test cod e = 69422-2) Abnormal [facility] HEPATITIS B [id number] 08:48:00* Test Item Value Reference Range Interpretation Comme nts AG HEPATITIS B SURFACE (test code = HBSAG) NONREACTIVE NONREACTIVE IS CONSENT FORM SIGNED FOR HIV TESTING? YAB HEPATITIS C [id number] 08:48:00* Test Item Value Reference Range Interpretation Comme nts AB HEPATITIS C (test code = HCVAB) NONREACTIVE NONREACTIVE SIGNAL TO CUTOFF (test code = CUTOFF) <0.02 <0.80 N IS CONSENT FORM SIGNED FOR HIV TESTING? YAB [id number] 08:48:00* Test Item Value Reference Range Interpretation Comme nts AB TREPONEMA (test code = TREPAB) NONREACTIVE NONREACTIVE IS CONSENT FORM SIGNED FOR HIV TESTING? YAB HIV 1 08:48:00* Test Item Value Reference Range Interpretation Comme nts AB HIV 1 2 (test code = UNK37FH) NONREACTIVE NONREACTIVE Done by [employer] HIV Ag/Ab Combo Screen IS CONSENT FORM SIGNED FOR HIV TESTING? YAG HEPATITIS B [id number] 08:17:00* Test Item Value Reference Range Interpretation Comme nts AG HEPATITIS B SURFACE (test code = HBSAG) NONREACTIVE NONREACTIVE IS CONSENT FORM SIGNED FOR HIV TESTING? YAB HEPATITIS C [id number] 08:17:00* Test Item Value Reference Range Interpretation Comme nts AB HEPATITIS C (test code = HCVAB) NONREACTIVE SIGNAL TO CUTOFF (test code = CUTOFF) <0.80 IS CONSENT FORM SIGNED FOR HIV TESTING? YAB [id number] 08:17:00* Test Item Value Reference Range Interpretation Comme nts AB TREPONEMA (test code = TREPAB) NONREACTIVE NONREACTIVE IS CONSENT FORM SIGNED FOR HIV TESTING? YAB HIV 1 08:17:00* Test Item Value Reference Range Interpretation Comme nts AB HIV 1 2 (test code = KCN85UT) NONREACTIVE IS CONSENT FORM SIGNED FOR HIV TESTING? YCBC W/AUTO [id number] 07:27:00* Test Item Value Reference Range Interpretation Comme nts WHITE BLOOD CELL (test code = WBC) [...] pg 27-35 N MEAN CELL HGB CONCETRATION ( test code = MCHC) 33.8 gm/dL 32.2-34.1 N RED CELL DISTRIBUTION WIDTH (test code = RDW) 13.5 % 12.4-16.5 N PLATELET COUNT (test code = PLT) 259 K/mm3 133-385 N MEAN PLATELET VOLUME (test c ode = MPV) 10.5 fl 9.1-12.7 N NEUTROPHIL % (test code = NT%) 77.0 [...] = BA#) 0.0 K/mm3 RBC MORPHOLOGY REQUIRED (matt t code = RBCM) NORMAL NORMAL PLATELET MORPHOLOGY REQUIRED (test code = PLTMR) NORMAL NORMAL - US FET BIO PH MS W/O [id number] 13:30:00Patient Name: DALE CLARKE Unit No: [id number] EXAMS: CPT CODE: [id number] US FET BIO PH MS W/O NST [address] [facility] [address] [place] [place], [place] [address] BIOPHYSICAL PROFILE ULTRASOUNDREPORT Pat. Name: DALE CLARKE Pat. No: [id number] Study Date: 06/05/2019 12:33pm , Age: 06 1995, 23 LMP: Unknown GA Selected: 38w6d (From Known E) JOSE: 06/13/2019 Referring MD: TITA SAMUEL Fabric Worker: Kathleen Maravilla RDMS CPT4: USBPPWONST Admitting MD: TITA SAMUEL Hist/Ind: 1ST SCAN LOF CTX PRESSURE Heart Rate: 147 bpm Amniotic Fluid Index: 17.5cm (07.2-22.8) Q1: 2.7cm Q2: 4.8cm Q3: 3.0cm Q4: 6.9cm Biophysical Profile: 11/16 Breathin Tone: 2 Movement: 2 AFV: 2 CLINICAL SUMMARY Type of Gestation: Galeano Intrauterine in vertex presentation. Fetalmotion and organs seen: heart motion seen body and limb movements observed tone noted breathing movements observed Placental location: Posterior Placental maturity : Grade 2 There is no evidence of placenta previa. Amniotic fluid volume is normal. Uterus and adnexa: No significant abnormality is seen. Thank you for allowing us to participate in the care of this patient. Nishant Perez M.D. Electronic Signature 06/05/2019 01:30pm at 1330 Reported and signed by: Nishant Perez MD [facility] NAME: DALE CLARKE Radiology Department PHYS: Tita Vargas MD [address] :1995 AGE: 23 SEX: F [place], [place] [address] LOC: CristinaBRIONNA PHONE #: [phone] EXAM DATE: 06/05/2019 STATUS: REG ER FAX #: [phone] RAD NO: Page 1 Signed Report (CONTINUED) Patient Name: DALE CLARKE Unit No: [id number] EXAMS: CPT CODE: [id number] US FET BIO PH MS W/ONST 43243 (Continued) CC: Tita Samuel MD Technologist: Kathleen Maravilla RDMS Probe: Trnscrbd D/ (1330) Maisha Jean D/T: S: 06/05/2019 (1330) [facility] NAME:DALE CLARKE Radiology Department PHYS: Tita Vargas MD [address] : 1995 AGE: 23 SEX: F [place], [place] [address] LOC: Alejandra.BRIONNA PHONE #: [phone] EXAM DATE: 06/05/2019 STATUS: REG ER FAX #: [phone] RAD NO: Page 2 Signed Report Patient Name: DALE CLARKE Unit No: [id number] EXAMS: CPT CODE: [id number] FET BIO PH MS W/O NST 75388 (Continued) [facility] NAME: DALE CLARKE Radiology Department PHYS: Tita Vargas MD [address] : 1995 AGE: 23 SEX: F [place] [address] LOC: CristinaBRIONNA PHONE #: [phone] EXAM DATE: 06/05/2019 STATUS: REG ER FAX #: [phone] RAD NO: Page 3 SignedReport Notes Date/Time Note Provider Source 2025-01-18 09:13:57 Called patient scheduled her an appt for 01/[address] Sparrow [facility] 2025-01-17 18:56:00 2 pm on 01/30 Apolinar Sparrow MD, [facility] Instrument Panel Assembler Division of Endocrinology IM-ENDOCRINOLOGY,DIABE MATT & METABOLISM STAFF [facility] 2025-01-17 16:35:19 Dr. Sparrow we were not able to schedule the patient , due to EPIC not working. Please advise a different day on should we schedule to the next available appt ? [facility]25-01-15 10:14:48 I can OB tomorrow at 10:30 AM IM-ENDOCRINOLOGY,DIABE MATT & METABOLISM STAFF [facility] 2025-01-15 09:27:40 I called the pt to schedule an appt no answer, ILVMTCB. Kaitlin Lantigua [facility] 2025-01-14 13:30:13 Please assist with rescheduling patient. Shona Seals RN [facility] 2025-01-14 11:23:35 Patient was scheduled for 01/28/2025 but is not able to make it in to her appt. Appt was originally reschedule because she was schedule with maria r and she does not see for her dx. She is requesting to be schedule a wilmerding. She was OB in [facility] due to scheduling error with maria r. I am not sure if Dr. Sparrow will be okay OB. Please call patient and schedule. Breanna Roe [facility] 2024-11-03 11:45:00 Images from the original note were not included. Venipuncture collection performed by clean technique on the right/left anticubitus. Total of 2 attempts were made. Slight pressure and a bandage/dressing were applied to the site(s). The patient experienced no complications. The following specimens were processed according to instructions and sent to [facility] laboratories per lab order on 11/02/24: LT BLUE SST 1 RED LAV PPT DK GREEN (LiHep) 1 DK GREEN (SodH) REDDY DK BLUE (K2) DK BLUE (S) ACD Blood Culture NIPT/NTD T [facility] 2024-11-01 11:23:29 Contacted patient, verified name and . Informed patient that the orders have been placed. Deja Schmitt RN [facility] 2024-11-01 11:14:38 Future Labs/Titers Need for hepatitis B screening test - Hepatitis B Surface Antibody; Future - Hepatitis B Surface Antigen; Future - Hbc Antibody (IgM & IgG); Future Screening-pulmonary TB - Quantiferon-Tb Assay; Future Brianna Chen MD, MPH, [facility] Sr. Director Instrument Panel Assembler, Department of Family Medicine [facility] 11/01/2024 11:15 AM Future Appointments In 1 week Maria R Seaman AGPCNP [facility] D[facility], CLARITA PEREA BLE In 3 months 2, Adc Lab [facility] Clinical Laboratory, [facility] In 3 months Brianna Cehn MD [facility] Adult & [facility] 2024-11-01 10:40:18 Contacted patient, verified name and . 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 Routing to provider for review. [facility] 2024-10-31 16:50:14 MCM sent to patient. TB test was done in 06/2024. T [facility] 2024-10-31 16:47:11 Dale Clarke is a 29 year old female is requesting orders for Quantiferon Gold TB test Please advise [phone] (home) Rashaad Alarcon [facility] 2024-08-30 10:15:00 Images from the original note were not included. Venipuncture collection performed by clean technique on the left anticubitus. Total of 1 attempts were made. Slight pressure and a bandage/dressing were applied to the site(s). The patient experienced no complications. The following specimens were processed according to instructions and sent to [facility] laboratories per lab order on 08/30/2024 : LT BLUE SST 3 RED LAV 2 PPT DK GREEN (LiHep) 1 lt/ 1 drk DK GREEN (SodH) REDDY DK BLUE (K2) DK BLUE (S) ACD Blood Culture NIPT/NTD [facility] 2024-08-30 10:06:16 Routing to provider for review. T [facility] 2024-08-30 09:52:37 Dale Clarke is a 28 year old female Pt called because she needs a return to work note dated for tomorrow also stating she has no restrictions. Pt was seen at the clinic today. She would like the letter uploaded on [employer] Estefania Watts [facility] 2024-08-30 09:00:00 Hi, Your lab results are back, are relatively normal and within acceptable limits except noted CBC: no anemia or wbc abnormality CMP: Kidney markers- within acceptable limits Electrolytes including sodium and potassium within acceptable limits Liver enzymes- without abnormality Continue the plans we discussed at your visit, including medication compliance, lifestyle and diet modification: lean meat, low fat, vegetables, nuts, low carb, increased fruits and exercise as tolerated. Maintain good hydration and avoid highly processed foods. Complete future/pending labs prior next appointment. I have included copies of the tests for your files. I will see you at your next appointment. Thanks. Sincerely, Brianna Chen MD, MPH, [facility] Clinical Instrument Panel Assembler, Department of Family Medicine Sr. Director. [facility] Adult & Primary [facility] - [facility] 2024-03-28 09:00:00 Images from the original note were not included. Venipuncture collection performed by clean technique on the left anticubitus. Total of 1 attempts were made. Slight pressure and a bandage/dressing were applied to the site(s). The patient experienced no complications. The following specimens were processed according to instructions and sent to [facility] laboratories per lab order on 03/28/2024 : LT BLUE SST 1 RED LAV 1 PPT DK GREEN (LiHep) DK GREEN (SodH) REDDY DK BLUE (K2) DK BLUE (S) ACD Blood Culture NIPT/NTD G[employer] [facility] 2023-12-06 18:15:02 Patient dc home. Follow up with pcp. Damion Campbell RN [facility] 2023-12-06 14:23:24 Patient states "for the past couple of days, I have been feeling this tingling (points to the right side of the head) and it goes to my fingers. I had some burning in the back of my head. I had some tooth pain, but I checked my teeth. And I feel like my jaw is locking." Patient c/o tingling on the right side of the face that radiates down the right arm to the fingers, started 3 days ago. Patient states that she got the flu shot 3 weeks ago, and afterwards had pain down the right arm. Saulo Ellington RN [facility] 2023-09-16 10:43:12 Call placed to pt to inform labs were ordered. Pt verbalizes understanding and agrees w/POC. Christine Ramsey RN [facility] 2023-09-16 10:18:53 I have placed lab orders [facility] 2023-09-15 16:03:06 Copied from [facility] #[id number]. Topic: Clinical - Order >> Sep 15, 2023 4:01 PM Patient Welt Butter Hand wrote: Dale Clarke is a 27 year old female. Patient is calling asking if the provider would be willing to place a order for a titers test for the Hep B Yareli Morejon [facility] 2023-09-12 17:24:48 You are scheduled to have: Exercise Stress (XS) Patient Name: Date & Time of Procedure: Where to go: 2nd Floor. Tell the medical receptionist medical assistant you have an appointment for an Exercise Stress Echocardiogram. Description of Procedure: This stress test uses a treadmill to increase heart rate and blood pressure. Your heart is continuously monitored by EKG, your blood pressure and oxygen content are monitored at regular intervals and your heart is imaged with ultrasound to examine cardiac structure and function at rest and peak exercise. The actual test takes approximately 1 1/2 hours. Special Instructions prior to the procedure: Do NOT take Beta Blockers the NIGHT BEFORE and the DAY of the test until finished with procedure. (E.g. carvedilol (Coreg), Metoprolol (Lopressor, Toprol XL), sotalol, propranolol, bystolic. You may drive yourself to and from this procedure. Arrive 30 minutes before your scheduled appointment time. Do not eat or drink for at least three (3) hours before your scheduled exam time. Take your prescribed medications with just enough water to swallow (unless otherwise instructed by your doctor). Wear comfortable walking shoes and clothing for the test. Please no slides or flip flops. The results of your test/procedure will be sent to your physician and he/she will explain them to you. If you have further questions and/or need to cancel you appointment, please call @ [phone]. [facility] HEALTH ECHOCARDIOGRAPHY LAB, [place] [address] [facility] [address] Alyx Aviles RN [facility] 2023-08-02 09:00:00 Images from the original note were not included. Venipuncture collection performed by clean technique on the right anticubitus. Total of 1 attempts were made. Slight pressure and a bandage/dressing were applied to the site(s). The patient experienced no complications. The following specimens were processed according to instructions and sent to [facility] laboratories per lab order on 08/02/2023: LT BLUE SST 1 RED LAV 1 PPT DK GREEN (LiHep) 1 DK GREEN (SodH) REDDY DK BLUE (K2) DK BLUE (S) ACD Blood Culture NIPT/NTD [facility] 2023-07-27 12:17:02 Call placed to Had Quantiferon Gold TB blood test completed 11/05/2022, and only completed 2 doses of Hep B, Last one was given 11/2022. 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 Informed pt she would need OV for new orders. Pt scheduled for 08/02/2023. Christine Ramsey RN [facility] 2023-07-27 11:31:31 Copied from [facility] #[id number]. Topic: Clinical - Medical Advice >> Jul 27, 2023 11:30 AM Patient Welt Butter Hand wrote: Pt returning clinics call. Please call back. Maritza Persaud [facility] 2023-07-26 08:32:50 Attempted to call patient, no answer, LVM to call back. [facility] 2023-07-25 15:27:45 Copied from [facility] #[id number]. Topic: Clinical - Medical Advice >> Jul 25, 2023 3:24 PM Patient Welt Butter Hand wrote: Pt calling to get a Quantiferon Gold TB blood test and would like to get her 3rd HPV vaccine at the same time if she did not already do the vaccine, pt states that she thought she had it done in April 2023.. Can please call Jessica Ugarte [facility] 2022-11-15 14:46:39 Formatting of this n ote might be different from the original. Patient called and she said she was suppose to get a Hep B antibody titer. Please call once the order is placed. She's needing this as soon as possible. Monique Turk [facility] 2022-11-10 11:51:06 Formatting of this n ote might be different from the original. Images from the original note were not included. [facility] 2022-11-09 10:31:32 Formatting of this n ote might be different from the original. 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 Pt states needs today an contact when processed. Pt is also wanting to know the results of her TB test. Camille Ryan [facility] [facility] 2022-11-05 13:15:00 Formatting of this n ote is different from the original. Images from the original note were not included. Venipuncture collection performed by clean technique on the left anticubitus. Total of 1 attempts were made. Slight pressure and a bandage/dressing were applied to the site(s). The patient experienced no complications. The following specimens were processed according to instructions and sent to [facility] laboratories per lab order on 11/05/2022 : LT BLUE SST RED LAV PPT DK GREEN (LiHep) 2 DK GREEN (SodH) REDDY DK BLUE (K2) DK BLUE (S) ACD Blood Culture NIPT/NTD [address] [facility] 2022-10-27 10:47:07 Formatting of this n ote might be different from the original. Multiple encounter, patient scheduled for immunization tomorrow. Trinidad Solorzano RN [facility] 2022-10-27 10:37:14 Formatting of this n ote might be different from the original. Spoke with patient, verbalized she will need a hep b vaccine. Transferred to [facility] to schedule appointment. Trinidad Solorzano RN [facility] 2022-10-26 09:26:59 Formatting of this n ote might be different from the original. 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 She is needing this FILI. Please advise. Call bank number: [phone] Ranjana Ross [facility] 2022-10-19 09:32:17 Formatting of this n ote might be different from the original. Spoke with patient, she needs to know if she needs to get the vaccine or if she has antibodies to hep c. Needs this information for school. [facility] 2022-10-18 16:03:42 Formatting of this n ote might be different from the original. Pt called and stated that her school needs to know if she's immune to Hep C , not if she has it. Pt needs this done FILI so she is able to start school. Please advise Yanelis Angeles [facility] 2019-06-07 08:44:00 [facility] ([facility]) OB Disch REPORT#:[id number] REPORT STATUS: Signed DATE:06/07/19 TIME: 843 PATIENT: DALE CLARKE UNIT #: [id number] ROOM/BED: [address] : 93 AGE: 23 SEX: F ATTEND: Tita Samuel MD ADM AUTHOR: Tita Samuel MD * ALL edits or amendments must be made on the electronic/computer document * Subjective Subjective Admission EGA (wks/days): 39 weeks EGA at delivery (wks/days): 39 weeks Patient reports: Patient reports: Yes: normal lochia, pain management effective, tolerating po well, voiding well, voiding without pain, tolerating ambulation, flatus. No: bowel movement, nausea, vomiting, excessive bleeding, abdominal pain, perineal pain, difficulty nursing, headache, blurred vision. Comments: doing well and baby is doing well at bedside Objective General VS: Vital Signs: Date Time Temp Pulse Resp B/P B/P Pulse O2 O2 Flow FiO2 Mean Ox Delivery Rate 06/06 1420 98.2 87 18 110/78 06/06 1315 98.2 78 18 106/67 06/06 1253 70.0 06/06 1253 98/55 06/06 1238 73.0 06/06 1238 82 16 103/56 06/06 1223 76.0 06/06 1223 65 107/56 06/06 1210 89.0 06/06 1210 70 18 120/75 06/06 1153 76.0 06/06 1153 75 103/57 06/06 1138 79.0 06/06 1138 77 17 103/58 06/06 1123 80.0 06/06 1123 76 16 112/60 06/06 1104 104.0 06/06 1104 98.0 112 18 156/90 Vital Signs Date Temp Pulse Resp B/P B/P Mean Pulse Ox FiO2 06/06 98.0-98.2 65-112 16-18 98-156/55-90 70.0-104.0 Last Documented: Result Date Time B/P 110/78 06/06 1420 Temp 98.2 06/06 1420 Pulse 87 06/06 1420 Resp 18 06/06 1420 B/P Mean 70.0 06/06 1253 Patient Weight Weight (lb): Weight (oz): Weight (kg): Physical Exam Cardiac: normal rhythm Lungs: no respiratory distress Neuro: Exam: alert, oriented x3, normal speech, normal gait Abdomen: post gravid, soft, no abnormal tenderness, no guarding, no rebound tenderness Incision site: none Uterus: involution appropriate, non-tender Fundus: firm, below the umbilicus, non-tender Lochia: normal Vulva/Perineum: normal Lower extremities: Edema: trace Quinn's sign: negative Calf tenderness: negative Results Findings/Data: Laboratory Tests: 06/06 704 Hematology WBC (6.6 - 12.1 K/mm3) 15.0 H RBC (3.45 - 5.01 M/mm3) 4.16 Hgb (10.7 - 13.9 g/dL) 12.0 Hct (32.1 - 42.1 %) 35.5 MCV (84.1 - 94.8 fL) 85 MCH (27 - 35 pg) 28.8 MCHC (32.2 - 34.1 gm/dL) 33.8 RDW (12.4 - 16.5 %) 13.5 Plt Count (133 - 385 K/mm3) 259 MPV (9.1 - 12.7 fl) 10.5 Neut % (Auto) (56.5 - 79.4 %) 77.0 Lymph % (Auto) (14.3 - 34.3 %) 17.8 Z[place]ata % (Auto) (5.1 - 10.4 %) 4.1 L Eos % (Auto) (0.1 - 3.0 %) 0.1 Baso % (Auto) (0.1 - 1.0 %) 0.3 Neut # (Auto) (K/mm3) 11.6 Lymph # (Auto) (K/mm3) 2.7 Zapata # (Auto) (K/mm3) 0.6 Eos # (Auto) (K/mm3) 0.02 Baso # (Auto) (K/mm3) 0.0 Serology Treponema pallidum Ab (NONREACTIVE) NONREACTIVE Hep Bs Antigen (NONREACTIVE) NONREACTIVE Hepatitis C Antibody (NONREACTIVE) NONREACTIVE Hep C Ab Signal/Cutoff (<0.80) <0.02 HIV 1 2 Antibody (NONREACTIVE) NONREACTIVE Results: labs reviewed, vital signs stable Discharge Summary Discharge Summary Free Text A P: 23 yo s/p TSVD at 39.0 weeks admitted in active labor 1. PPD1-AF, VSS, HDS 2. GBS negative 3. RH negative s/p rhogam will do rhogam studies - baby is O+, will get rhogam prior to discharge 4. pmh anxiety - mood good no meds 5. no psh 6. Dispo - pt desires to go home today if possible, otherwise d/c home tomorrow am. f/u in office in 6 weeks Date of admission: Date of admission: 06/06/19 Admission diagnosis: labor-spontaneous Hospital course: spontaneous labor, spontaneous vag delivery Procedures: spontaneous vaginal deliv Baby A: Vaginal delivery: spontaneous status: live born Gender: female 1 minute: 8 5 minutes: 9 Nursing data: The data set between the solid lines has been imported from nursing documentation. Any exceptions have been noted below under Provider comments. EGA (weeks/days): 39.0 EGA at admit (weeks): Delivery date A: 06/06/19 Delivery time A: 1050 Birthweight (gm) A: 3660 Feeding preference: Gender infant A: Female 1 minute A: 5 minutes infant A: 10 minutes A: Provider comments on imported nursing data: [] Plan: routine care, discharge today Instructions: routine instr sheet given, instr and warnings rev'd, specific instr as noted Diet: regular Activity and restrictions: up ad faye, may shower, pelvic rest, no intercourse for 6 wks, no driving Immunizations given: rhogam/rhophylac Contraception discussed: abstinence for 4-6 weeks, will discuss at PP visit Discharge meds: Continue taking these medications: PNV WITH FE FUMARATE/FA () 1 EACH TAB 1 TABLET ORAL DAILY. Start taking the following new medications: IBUPROFEN (MOTRIN) 600 MG TAB 600 MILLIGRAM ORAL EVERY 6 HOURS NEEDED. as needed for PAIN SCALE 1-3 ( USE 1ST) Qty = 30 No Refills Prescriptions: e-prescribe Discharge condition: stable Discharge to: home Follow up in: 6 weeks Discharge diagnosis: full-term uncomp delivery Discharge management: less than 30 mins at 1006 RPT #:[id number] END OF REPORT [facility] 2019-06-06 11:47:00 [facility] OB Delivery Note REPORT#:[id number] REPORT STATUS: Signed DATE:06/06/19 TIME: 1147 PATIENT: DALE CLARKE UNIT #: [id number] ROOM/BED: [address] : 93 AGE: 23 SEX: F ATTEND: Tita Samuel MD ADM AUTHOR: Tita Samuel MD * ALL edits or amendments must be made on the electronic/computer document * OB Delivery Nursing Documentation Review Nursing data: The data set between the solid lines has been imported from nursing documentation. Any exceptions have been noted below under Provider comments. _ ROM date: 06/06/19 ROM time: 0937 Membranes rupture method: AROM Amniotic fluid color: Clear Amniotic fluid amount: EGA (weeks/days): 39.0 EGA at admit (weeks): EGA at delivery (weeks): Steroids prior to arrival: Antibiotic prophylaxis given: [place] evaluation at delivery: Delivery date A: 06/06/19 Delivery time A: 1050 Birthweight (gm) infant A: Weight (lb) infant A: Weight (oz) A: Gender infant A: Female 1 minute A: 5 minutes infant A: 10 minutes infant A: Cord pH obtained infant A: Vacuum time A: Vacuum # pulls A: Vacuum # popoffs A: QBL at delivery: __ Provider comments on imported nursing data: [] Pre-delivery GBS status: GBS status: negative [place] evaluation at delivery: NRP certified personnel Admission EGA (wks/days): 39 weeks EGA at delivery (wks/days): 39 weeks Baby A Information Baby A information Delivery date: 06/06/19 Delivery time: 1050 status: live born Wt of baby: not yet available Gender: female 1 minute: 8 5 minutes: 9 Presentation: vertex ABG details Baby A Cord blood gases: not collected Nuchal cord Baby A Nuchal cord: yes (tight,deliv.through) Vaginal Delivery Vaginal delivery: Labor: spontaneous Vaginal delivery: spontaneous Amniotic fluid: clear Anesthesia type: no anesthesia Episiotomy: none Episiotomy repair: not applicable Laceration repair: not required Vaginal hematoma: none Placenta: spontaneous, intact Post delivery meds used: oxytocin Count: correct, vag exam neg for sponges Mother's condition: mother stable Infant's condition: infant stable in room Lacerations: Perineal laceration(s): None High vaginal laceration: no Extraction details OVD performed: no Shoulder dystocia present: no Additional comments: As the head crowned and delivered, the perineum was protected with blue towel. The anterior shoulder delivered with gentle downward traction and posterior shoulder with gentle upward traction. A tight nuchal cord was noted and delivered through. A vigorous baby girl delivered, clear amniotic fluid. The infant was bulb suctioned, the cord clamped and cut, then handed to the waiting mother. Placenta delivered spontaneously and intact. Hemostasis achieved with fundal massage and IV pitocin. No lacerations were noted. EBL 200. Sponge, lap , and needle counts correct x 2, lap scan negative. Good maternal-infant bonding noted Blood Loss/Details Blood loss at delivery: <1000 ml EBL at delivery (ml's): 200 at 1509 RPT #:[id number] END OF REPORT [facility] 2019-06-06 09:49:00 [facility] ([facility]) OB Admission / H P REPORT#:[id number] REPORT STATUS: Signed DATE:06/06/19 TIME: 948 PATIENT: DALE CLARKE UNIT #: [id number] ROOM/BED: 018-A : 93 AGE: 23 SEX: F ATTEND: Tita Samuel MD ADM AUTHOR: Tita Samuel MD * ALL edits or amendments must be made on the electronic/computer document * OB Admission H P Hx Chief complaint: uterine contractions HPI: 23 yo at 39.0 weeks with regular painful contractions. +FM, no lof of fluid. history: : 4 Term: 3 : 0 Abortus: 0 Living children: 3 Current : EDC: 06/13/19 Admission EGA (wks/days): 39 weeks EGA based on: LMP, ultrasound, 1st trimester Labs: Blood type: A Rh: negative Rubella: immune Hepatitis B: negative HIV: negative STD: negative Syphilis: currently negative GBS: negative Date Rhogam administered: 03/27/19 Past medical history: migraines, anxiety Past surgical history: denies PSH Social history: no alcohol use, no tobacco use, no drug use Medications: Home Medications: PNV WITH FE FUMARATE/FA () 1 TAB PO DAILY Allergies Coded Allergies: No Known Allergies (06/06/19) Objective General VS: Last Documented: Result Date Time B/P Mean 94.0 06/06 725 B/P 127/77 06/06 07 Temp 98.2 06/06 07 Pulse 100 06/06 07 Resp 16 06/06 07 Vital Signs Date Temp Pulse Resp B/P B/P Mean Pulse Ox FiO2 06/06 98.0-98.2 100-103 16-18 119-127/77-78 92.0-94.0 Patient Weight Weight (lb): Weight (oz): Weight (kg): Physical Exam HEENT: normocephalic w/o injury Lungs: no respiratory distress Neuro: Exam: alert, oriented x3, normal speech, normal gait Abdomen: gravid, soft, no abnormal tenderness, no guarding, no rebound tenderness Uterine activity: Monitor: toco Intensity: moderate Cervical/ exam: Dilatation (cm): 6 Effacement (%): 90 station: - 1 presentation: cephalic Membranes: Membranes: Intact Baby A: Baby A FHR category: category 1 Result Findings/Data: Laboratory Tests: 06/06 704 Hematology WBC (6.6 - 12.1 K/mm3) 15.0 H RBC (3.45 - 5.01 M/mm3) 4.16 Hgb (10.7 - 13.9 g/dL) 12.0 Hct (32.1 - 42.1 %) 35.5 MCV (84.1 - 94.8 fL) 85 MCH (27 - 35 pg) 28.8 MCHC (32.2 - 34.1 gm/dL) 33.8 RDW (12.4 - 16.5 %) 13.5 Plt Count (133 - 385 K/mm3) 259 MPV (9.1 - 12.7 fl) 10.5 Neut % (Auto) (56.5 - 79.4 %) 77.0 Lymph % (Auto) (14.3 - 34.3 %) 17.8 Zapata % (Auto) (5.1 - 10.4 %) 4.1 L Eos % (Auto) (0.1 - 3.0 %) 0.1 Baso % (Auto) (0.1 - 1.0 %) 0.3 Neut # (Auto) (K/mm3) 11.6 Lymph # (Auto) (K/mm3) 2.7 [place]ata # (Auto) (K/mm3) 0.6 Eos # (Auto) (K/mm3) 0.02 Baso # (Auto) (K/mm3) 0.0 Serology Treponema pallidum Ab (NONREACTIVE) NONREACTIVE Hep Bs Antigen (NONREACTIVE) NONREACTIVE Hepatitis C Antibody (NONREACTIVE) NONREACTIVE Hep C Ab Signal/Cutoff (<0.80) <0.02 HIV 1 2 Antibody (NONREACTIVE) NONREACTIVE Diagnosis, Assessment Plan Diagnosis, Assessment Plan Free Text A P: 23 yo at 39.0 weeks in active labor 1. admit to L D routine labs, expectant managment 2. AROM clear fluid 3. GBS negative 4. RH negative s/p rhogam will do rhogam studies 5. pmh anxiety - mood good no meds 6. no psh Assessment/Impression: spont.active labor>39 wks Plan: admit to inpatient, transfer to L D Plan discussed with: patient at 1015 RPT #:[id number] END OF REPORT [facility]
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
== END 2025-01-25 10:44 | disposition left against medical advice (07) ==
LOC: ER 10:26
DX: R07.89 Other chest pain (principal); V49.40XA Driver injured in collision with unspecified motor vehicles in traffic accident, initial encounter
CPT/HCPCS: 99282